=== PATIENT | female | born 1970 | race Caucasian/White ===

== ENCOUNTER → 2018-02-09 14:40 | Outpatient (CLI) | payer OTHER, MEDICAID, SELFPAY ==
--- NOTE | 2018-02-09 14:42 | DI.RAD.S_ITS ---
PROCEDURE: XR SHOULDER RT MIN 2V INDICATIONS: R shoulder pain TECHNIQUE: 3 views of the shoulder were acquired. COMPARISON: [facility], , CHEST 1 VIEW, 04/21/2017, 20:39. FINDINGS: Bones: No fractures or dislocations. No suspicious bony lesions. Visualized ribs appear intact. Severe acromioclavicular degenerative narrowing is present. Soft tissues: No suspicious soft tissue calcifications. IMPRESSION: Severe acromioclavicular degenerative narrowing. Dictated by: Stacy Jackson M.D. on 02/09/2018 at 16:17 Approved by: Stacy Jackson M.D. on 02/09/2018 at 16:18
== END ==
PROVIDERS: Family Provider Family Medicine; PCP Family Medicine; Visit Provider Physician Assistant
DX: M19.011 Primary osteoarthritis, right shoulder (principal)
CPT/HCPCS: 73030

== ENCOUNTER 2018-03-22 19:20 | Emergency (ER) | payer OTHER, MEDICAID, SELFPAY ==
[2018-03-22 19:28] VITALS: BP 155/85; PULSE 80; RESP 18; TEMP 36.7; O2SAT 94; BMI 35.8
--- NOTE | 2018-03-22 19:57 | PC.NURSE ---
rt side lower jaw pain, began this AM, worsening this afternoon with rt jaw/cheek swelling/tenderness, denies fever/nausea/vomiting or other sx
--- NOTE | 2018-03-22 20:04 | ED.DENTAL ---
HPI - Dental/Oral <SHANDRA Pinon - Last Filed: 03/22/18 22:25> General Chief complaint: Dental/Oral Stated complaint: RIGHT CHEEK SWELLING AND PAIN Time Seen by Provider: 03/22/18 20:23 History of Present Illness HPI Narrative: 48-year-old female here for complaint of swelling to her right lower jaw over the past day. She denies any trauma to the area. She does have a history of dental caries. Pain is also in side into her gumline area. No fevers no chills. No drainage from the area. Patient states she does have a dentist and will follow up in the next couple of days. No other concerns or complaints. Related Data Previous Rx's Medication Instructions Recorded Syringes: 1cc Insulin Syringes 0 syr SQ Q DAY #100 03/02/17 with Sawyer Sawyer 5/16 Inch ea #30 05/25/17 hydrochlorothiazide 25 mg PO QDAY #90 tab 10/28/17 lisinopril 20 mg PO QDAY #90 tab 10/28/17 metformin 1,000 mg PO BIDCC #180 tab 10/28/17 omeprazole 40 mg PO QDAY #90 cap 10/28/17 pravastatin 80 mg PO HS #90 tab 10/28/17 meloxicam 15 mg PO QDAY #30 tab 12/16/17 albuterol sulfate [Ventolin HFA] 2 puff INH SEE INSTRUCTIONS PRN #1 12/25/17 inh prazosin 1 mg capsule 1 mg PO HS #90 cap 01/21/18 hydrocodone 5 mg-acetaminophen 325 1 tab PO Q6-8H PRN #10 tab 02/10/18 mg tablet insulin glargine (U-100) 100 37 unit SUBCUT HS #4 each 02/23/18 unit/mL (3 mL) subcutaneous pen clotrimazole 1 % topical cream See Label Instructions TOPICAL BID 03/18/18 #30 gram clindamycin HCl 300 mg PO TID #30 cap 03/22/18 Allergies Allergy/AdvReac Type Severity Reaction Status Date / Time cephalexin [From KEFLEX] Allergy Unknown ITCHY Unverified 03/22/18 18:58 azithromycin [AZITHROMYCIN] AdvReac Severe vomiting Unverified 03/22/18 18:58 Review of Systems <SHANDRA Pinon - Last Filed: 03/22/18 22:25> Constitutional Denies chills, Denies fever(s), Denies lethargy and Denies weakness Eyes Denies change in vision, Denies eye discharge, Denies irritation and Denies loss of vision ENT Ears, Nose, Mouth, and Throat: Reports facial pain and Reports mouth pain Comments: Cardiovascular Denies chest pain, Denies irregular heart rhythm, Denies lightheadedness, Denies palpitations, Denies dyspnea, Denies dyspnea on exertion and Denies orthopnea Respiratory Denies cough, Denies dyspnea, Denies dyspnea on exertion and Denies wheezing Gastrointestinal Gastrointestinal: Denies abdominal pain, Denies change in bowel habits, Denies diarrhea, Denies nausea and Denies vomiting Genitourinary Denies hematuria, Denies flank pain, Denies urinary incontinence and Denies urinary urgency Musculoskeletal Denies back pain, Denies muscle weakness, Denies numbness and Denies tingling Integumentary/Breasts Denies pruritus, Denies erythema, Denies rash and Denies wounds Neurologic Denies confusion, Denies loss of vision, Denies numbness, Denies tingling and Denies weakness Psychiatric Denies anxiety, Denies confusion, Denies depression, Denies homicidal ideation and Denies suicidal ideation Endocrine Denies palpitations Hematologic/Lymphatic Denies easy bruising Allergic/Immunologic Denies wheezing Exam <SHANDRA Pinon - Last Filed: 03/22/18 22:25> Initial Vital Signs Initial Vital Signs: Vital Signs Temperature 98.1 F 03/22/18 19:28 Pulse Rate 80 03/22/18 19:28 Respiratory Rate 18 03/22/18 19:28 Blood Pressure 155/85 H 03/22/18 19:28 Pulse Oximetry 94 03/22/18 19:28 Const General: cooperative and well developed Nutritional Appearance: well nourished Orientation: alert, awake, oriented x3 and not confused HENMT Mouth: other (Tenderness to the right lower gum line and along the mandible externally. Area of swelling and fluctuance felt approximately 2 cm to the right mandible area. ) Eyes Eyelids: eyelids normal Conjunctivae: conjunctivae normal Pupils: PERRL EOM: EOM intact bilaterally Resp Effort & Inspection: normal respiratory effort, able to speak in complete sentences, no respiratory distress and no use of accessory muscles Auscultation: clear to auscultation bilaterally, no rales, no rhonchi and no wheezes Cardio Rate: regular rate Rhythm: regular rhythm Heart Sounds: no click, no gallops, no murmurs and no rubs Skin General: no rashes or lesions noted, No jaundice and No petechiae <Marcos Rowell DO - Last Filed: 03/22/18 23:45> Initial Vital Signs Initial Vital Signs: Vital Signs Temperature 98.1 F 03/22/18 19:28 Pulse Rate 80 03/22/18 19:28 Respiratory Rate 18 03/22/18 19:28 Blood Pressure 155/85 H 03/22/18 19:28 Pulse Oximetry 94 03/22/18 19:28 Course <SHANDRA Pinon - Last Filed: 03/22/18 22:25> Orders Ordered: Discontinued Medications Hydrocodone Bitart/Acetaminophen (Vicodin Prepack) 1 bottle MISC SEEINSTR ONE Stop: 03/22/18 20:41 Last Admin: 03/22/18 21:02 Dose: 1 bottle Clindamycin HCl (Cleocin) 300 mg PO NOW ONE Stop: 03/22/18 20:36 Last Admin: 03/22/18 21:02 Dose: 300 mg Vital Signs - 8 hr 03/22/18 19:28 03/22/18 21:04 03/22/18 21:05 Temperature 98.1 F Pulse Rate 80 71 68 Respiratory Rate 18 16 97 H Blood Pressure 155/85 H 165/79 H Blood Pressure [Left Arm] 165/79 H Pulse Oximetry 94 96 <Marcos Rowell DO - Last Filed: 03/22/18 23:45> Orders Ordered: Discontinued Medications Hydrocodone Bitart/Acetaminophen (Vicodin Prepack) 1 bottle MISC SEEINSTR ONE Stop: 03/22/18 20:41 Last Admin: 03/22/18 21:02 Dose: 1 bottle Clindamycin HCl (Cleocin) 300 mg PO NOW ONE Stop: 03/22/18 20:36 Last Admin: 03/22/18 21:02 Dose: 300 mg Vital Signs - 8 hr 03/22/18 19:28 03/22/18 21:04 03/22/18 21:05 Temperature 98.1 F Pulse Rate 80 71 68 Respiratory Rate 18 16 97 H Blood Pressure 155/85 H 165/79 H Blood Pressure [Left Arm] 165/79 H Pulse Oximetry 94 96 MDM - Dental/Oral <Pablito AngeloSHANDRA - Last Filed: 03/22/18 22:25> [facility] Narrative Medical decision making narrative: With dental caries to that area signs and symptoms presents as starting dental abscess. Wanted to incise and drain area of fluctuance patient refused and states full rather follow up with dentist in the next couple of days. She is covered with clindamycin. [id number] ibuprofen for discomfort. Small amount of [place] is given a Dosepak for breakthrough pain. For any worsening symptoms return to emergency room see dentist in the next day or 2 for further evaluation. Discharge Plan Departure Patient Disposition: Home, Self-Care Clinical Impression: Dental abscess Discharge Date/Time: 03/22/18 21:07 Interventions: ED Discharge Assessment Last Done: 03/22/18 21:05 Instructions: Tooth Abscess Activity Restrictions/Additional Instructions: Signs and symptoms presents as a dental abscess to the right lower jaw area. You have been placed on an antibiotic called clindamycin use as directed. Follow up with her dentist here in the next couple of days for re-evaluation. For any worsening symptoms return to the emergency room. Use [id number] Tylenol Motrin as needed for any discomfort. Small amount of [place] is been right for breakthrough pain use as directed no driving while on the [place]. Prescriptions: New clindamycin HCl 300 mg capsule 300 mg PO TID Qty: 30 RF: 0 No Action Syringes: 1cc Insulin Syringes with Sawyer SQ Q DAY Qty: 100 RF: 0 Sawyer 5/16 Inch Qty: 30 RF: 11 lisinopril 20 MG tablet 20 mg PO QDAY Qty: 90 RF: 3 omeprazole 40 MG capsule,delayed release(DR/EC) 40 mg PO QDAY Qty: 90 RF: 3 pravastatin 80 MG tablet 80 mg PO HS Qty: 90 RF: 3 metformin 1,000 MG tablet 1,000 mg PO BIDCC Qty: 180 RF: 3 hydrochlorothiazide 25 MG tablet 25 mg PO QDAY Qty: 90 RF: 3 meloxicam 15 MG tablet 15 mg PO QDAY Qty: 30 RF: 0 albuterol sulfate [Ventolin HFA] 90 MCG/PUFF HFA aerosol inhaler 2 puff INH SEE INSTRUCTIONS PRNQty: 1 RF: 2 prazosin 1 mg capsule 1 mg PO HS Qty: 90 RF: 3 insulin glargine [Basaglar KwikPen U-100 Insulin] 100 unit/mL (3 mL) insulin pen 37 unit SUBCUT HS Qty: 4 RF: 0 clotrimazole 1 % cream See Label Instructions Topical BID Qty: 30 RF: 0 hydrocodone-acetaminophen 5-325 mg tablet 1 tab PO Q6-8H PRN (Reason: pain) Qty: 10 RF: 0 Referrals: Harmony Trujillo DO [Primary Care Provider] - <Marcos Rowell DO - Last Filed: 03/22/18 23:45> Cosign ED Attending Deedee Attestation: I was immediately available in the department for consultation. Documentation has been reviewed. I agree with assessment and plan.
[2018-03-22] MEDS: CLINDAMYCIN 150 MG CAPSULE 300 MG PO (21:02)
[2018-03-22] MEDS: HYDROCODONE/ACET 5/325 PREPACK 1 BOTTLE MISC (21:02)
[2018-03-22 21:04] VITALS: BP 165/79; PULSE 71; RESP 16; O2SAT 96
[2018-03-22 21:05] VITALS: BP 165/79; PULSE 68; RESP 97
== END 2018-03-22 21:07 | disposition home or self-care (01) ==
PROVIDERS: Emergency Provider Nurse Practitioner Family; Family Provider Family Medicine; PCP Family Medicine
DX: K04.7 Periapical abscess without sinus (principal)
CPT/HCPCS: 99282; 99283

== ENCOUNTER → 2018-08-31 09:58 | Outpatient (CLI) | payer OTHER, SELFPAY ==
[2018-08-31 10:40] LABS: Add Manual Diff / Slide Review NO; Basophils Percent Auto 0.5 % (0-2); Eosinophils Percent Auto 3.5 % (2-4); Hematocrit 38.2 % (36-46); Hemoglobin 13.2 g/dL (12.0-16.0); Lymphocytes Percent Auto 33.5 % (25-40); Mean Corpuscular HGB Conc 34.6 % (30-36); Mean Corpuscular Volume 89.5 fL (80-100); Monocytes Percent Auto 7.2 % (3-14); Neutrophils Absolute Auto 4000 /uL (1500-7000); Neutrophils Percent Auto 55.3 % (50-75); Platelet Count 181 X10^3/uL (150-400); Red Blood Cell Count 4.27 X10^6/uL (4.0-5.2); Red Cell Distribution Width 14.2 % (11.6-14.8); White Blood Cell Count 7.3 X10^3/uL (4.5-11.0)
[2018-08-31 11:48] LABS: Alanine Aminotransferase 29 IU/L (9-52); Albumin 3.9 g/dL (3.5-5.0); Albumin Globulin Ratio 1.1 (1.0-2.8); Alkaline Phosphatase 131 U/L (38-126); Aspartate Aminotransferase 31 IU/L (14-36); Bilirubin Total 0.9 mg/dL (0.2-1.3); Blood Urea Nitrogen 9 mg/dL (7-17); Calcium 9.2 mg/dL (8.4-10.2); Carbon Dioxide 25 mmol/L (22-32); Chloride 106 mmol/L (98-107); Cholesterol 265 mg/dL (140-199); Estimated Glomerular Filt Rate > 60.0 mL/min (>60); Globulin 3.7 g/dL (1.7-4.1); Glucose 217 mg/dL (70-100); HDL Cholesterol 24 mg/dL (40-60); Potassium 3.7 mmol/L (3.4-5.1); Sodium 142 mmol/L (137-145); Total Protein 7.6 g/dL (6.3-8.2)
[2018-08-31 11:55] LABS: HEMOLYSIS 28 (0-50)
[2018-08-31 12:01] LABS: Triglycerides 741 mg/dL (35-150)
[2018-08-31 13:45] LABS: Hemoglobin A1C% w Est Avg Glu 10.7 % (4.0-6.0)
[2018-08-31 14:08] LABS: TSH w/ Reflex to FT4 1.68 uIU/mL (0.47-4.68)
== END ==
PROVIDERS: PCP Family Medicine; Visit Provider Family Medicine
DX: E11.9 Type 2 diabetes mellitus without complications (principal); I10 Essential (primary) hypertension
CPT/HCPCS: 36415; 80053; 80061; 83036; 84443; 85025

== ENCOUNTER → 2018-09-01 14:26 | Outpatient (CLI) | payer OTHER, SELFPAY ==
[2018-09-01 15:02] LABS: LDL Cholesterol Direct 96 mg/dL (<100)
== END ==
PROVIDERS: Family Provider Family Medicine; PCP Family Medicine; Visit Provider Family Medicine
DX: E11.9 Type 2 diabetes mellitus without complications (principal); I10 Essential (primary) hypertension
CPT/HCPCS: 83721

== ENCOUNTER 2018-09-21 12:37 | Emergency (ER) | payer OTHER, SELFPAY ==
[2018-09-21 13:09] VITALS: BP 153/90; PULSE 75; RESP 14; TEMP 37.3; O2SAT 98
--- NOTE | 2018-09-21 15:17 | ED.ABDPAIN ---
HPI - Abdominal Pain <Lana Carrero PA-C - Last Filed: 09/21/18 22:04> General Chief Complaint: Abdominal Pain Stated Complaint: severe rt sided pain Time Seen by Provider: 09/21/18 15:17 Source: patient Mode of arrival: ambulatory Limitations: no limitations History of Present Illness HPI narrative: This 48-year-old female comes in due to 4 day history of right flank pain. This is localized. It is better with lying on her side, no exacerbating features aside from perhaps positional at times. She states that pain has been severe the whole time, maybe somewhat worse today, came in at the insistence of her daughter. She states that she has been able to tolerate fluids, but has not eat any regular meals because of nausea and vomiting when she tries to eat. She states she has also had diarrhea this whole time, quite frequently, thinks maybe 15 episodes today though she has not had any episodes in the several hours that she has been here she states. She denies any pain in the abdomen. She denies any hematuria, dysuria, new frequency or urgency. She denies any chest pain or dyspnea. She states that she had pain like this somewhat with her previous kidney infection. She does not have any history of kidney stones, or pancreas issues, status post cholecystectomy Related Data Home Medications Medication Instructions Recorded Confirmed Vilas 5/16 Inch 1 ea MISCELLANEOUS DIRECTED 09/21/18 09/21/18 Syringes: 1cc Insulin Syringes 1 syr MISCELLANEOUS DIRECTED 09/21/18 09/21/18 with Vilas hydrochlorothiazide 25 mg PO DAILY 09/21/18 09/21/18 insulin glargine [Basaglar Susanna 37 unit SUBCUT BEDTIME 09/21/18 09/21/18 U-100 Insulin] lisinopril 20 mg PO DAILY 09/21/18 09/21/18 omeprazole 40 mg PO DAILY 09/21/18 09/21/18 pravastatin 80 mg PO BEDTIME 09/21/18 09/21/18 prazosin 1 mg PO BEDTIME 09/21/18 09/21/18 sertraline 25 mg PO BEDTIME 09/21/18 09/21/18 Previous Rx's Medication Instructions Recorded albuterol sulfate [Ventolin HFA] 2 puff INH SEE INSTRUCTIONS PRN #1 08/28/18 inh metformin 1,000 mg tablet 1,000 mg PO BIDCC #180 tab 07/13/18 clotrimazole 1 % topical cream See Label Instructions TOPICAL BID 08/12/18 #30 gram ciprofloxacin HCl 500 mg PO Q12H #14 tab 09/21/18 ondansetron 4 mg PO Q8H PRN 3 Days #10 tab 09/21/18 Allergies Allergy/AdvReac Type Severity Reaction Status Date / Time cephalexin [From KEFLEX] Allergy Unknown ITCHY Verified 09/17/18 14:20 azithromycin [AZITHROMYCIN] AdvReac Severe vomiting Verified 09/17/18 14:20 Review of Systems <MARY Fisher Last Filed: 09/21/18 22:04> Review of Systems All systems reviewed & are unremarkable except as noted in HPI and below Exam <MARY Fisher Last Filed: 09/21/18 22:04> Narrative Exam Narrative: GENERAL APPEARANCE: Patient resting, sleeping, in NAD HEENT: PERRL, EOMI, no scleral icterus, normal oropharynx NECK: Supple LUNGS: Clear to auscultation bilaterally. HEART: Rate and rhythm regular, normal S1 and S2, no S3 or S4. ABDOMEN: Soft, nontender, nondistended, bowel sounds present x 4 quadrants, no masses palpable, no hepatosplenomegaly. Localized right CVAT EXTREMITIES: No edema, no calf tenderness DERMATOLOGIC: No jaundice or exanthem NEUROLOGIC: Alert and oriented with normal speech and coordination Initial Vital Signs Initial Vital Signs: Vital Signs Temperature 99.2 F 09/21/18 13:09 Pulse Rate 75 09/21/18 13:09 Respiratory Rate 14 09/21/18 13:09 Blood Pressure 153/90 H 09/21/18 13:09 Pulse Oximetry 98 09/21/18 13:09 <Deepali Dobbins DO - Last Filed: 09/22/18 08:20> Initial Vital Signs Initial Vital Signs: Vital Signs Temperature 99.2 F 09/21/18 13:09 Pulse Rate 75 09/21/18 13:09 Respiratory Rate 14 09/21/18 13:09 Blood Pressure 153/90 H 09/21/18 13:09 Pulse Oximetry 98 09/21/18 13:09 Course <MARY Fisher Last Filed: 09/21/18 22:04> Additional Information: Patient is feeling significantly improved prior to discharge. Pain is better. She has not had any recurrent vomiting or diarrhea. She is tolerating juice and crackers. She feels like symptoms are consistent with previous pyelonephritis. She had tolerated Cipro well in the past, so was started on this and no problem taking it orally while here. Stressed the importance of follow-up with PCP in 2-3 days to assess progress and review cultures as well as return here if any acutely worsening symptoms in the interim, and she is agreeable Orders Ordered: Discontinued Medications Ciprofloxacin (Cipro) 500 mg PO NOW ONE Stop: 09/21/18 17:00 Last Admin: 09/21/18 17:13 Dose: 500 mg Sodium Chloride (Normal Saline 0.9%) 1,000 mls @ 1,000 mls/hr IV BOLUS ONE Stop: 09/21/18 16:32 Last Infusion: 09/21/18 17:04 Dose: 0 mls/hr Admin: 09/21/18 15:57 Dose: 1,000 mls/hr Ketorolac Tromethamine (Toradol) 30 mg IV NOW ONE Stop: 09/21/18 15:34 Last Admin: 09/21/18 15:56 Dose: 30 mg Ondansetron HCl (Zofran) 4 mg IV NOW ONE Stop: 09/21/18 15:34 Last Admin: 09/21/18 15:56 Dose: 4 mg Vital Signs - 8 hr 09/21/18 15:50 09/21/18 17:15 Pulse Rate 64 75 Respiratory Rate 17 17 Blood Pressure [Right Arm] 150/69 H 139/76 Pulse Oximetry 95 95 <Deepali Dobbins, - Last Filed: 09/22/18 08:20> Orders Ordered: Discontinued Medications Ciprofloxacin (Cipro) 500 mg PO NOW ONE Stop: 09/21/18 17:00 Last Admin: 09/21/18 17:13 Dose: 500 mg Sodium Chloride (Normal Saline 0.9%) 1,000 mls @ 1,000 mls/hr IV BOLUS ONE Stop: 09/21/18 16:32 Last Infusion: 09/21/18 17:04 Dose: 0 mls/hr Admin: 09/21/18 15:57 Dose: 1,000 mls/hr Ketorolac Tromethamine (Toradol) 30 mg IV NOW ONE Stop: 09/21/18 15:34 Last Admin: 09/21/18 15:56 Dose: 30 mg Ondansetron HCl (Zofran) 4 mg IV NOW ONE Stop: 09/21/18 15:34 Last Admin: 09/21/18 15:56 Dose: 4 mg Vital Signs - 8 hr 09/21/18 15:50 09/21/18 17:15 Pulse Rate 64 75 Respiratory Rate 17 17 Blood Pressure [Right Arm] 150/69 H 139/76 Pulse Oximetry 95 95 MDM - Abdominal Pain <Lana Carrero PA-C - Last Filed: 09/21/18 22:04> Lab Data Result diagrams: 09/21/18 15:48 09/21/18 15:48 Lab Results 09/21/18 09/21/18 09/21/18 Range/Units 15:48 15:48 16:25 WBC 8.0 (4.5-11.0) X10^3/uL RBC 4.53 (4.0-5.2) X10^6/uL Hgb 14.0 (12.0-16.0) g/dL Hct 40.1 (36-46) % MCV 88.4 (80-100) fL MCH 31.0 (26-34) PG MCHC 35.0 (30-36) % RDW 14.1 (11.6-14.8) % Plt Count 213 (150-400) X10^3/uL Neut % (Auto) 56.9 (50-75) % Lymph % (Auto) 33.7 (25-40) % [place] % (Auto) 6.2 (3-14) % Eos % (Auto) 2.3 (2-4) % Baso % (Auto) 0.9 (0-2) % Neut # (Auto) 4600 (9654-1518) /uL Sodium 142 (137-145) mmol/L Potassium 3.6 (3.4-5.1) mmol/L Chloride 105 (98-107) mmol/L Carbon Dioxide 26 (22-32) mmol/L BUN 13 (7-17) mg/dL Creatinine 0.80 (0.52-1.04) mg/dL Estimated GFR > 60.0 (>60) mL/min BUN/Creatinine Ratio 16.3 (6-22) Glucose 182 H (70-100) mg/dL Calcium 9.7 (8.4-10.2) mg/dL Total Bilirubin 1.1 (0.2-1.3) mg/dL AST 32 (14-36) IU/L ALT 21 (9-52) IU/L Alkaline Phosphatase 119 (38-126) U/L Total Protein 8.2 (6.3-8.2) g/dL Albumin 4.1 (3.5-5.0) g/dL Globulin 4.1 (1.7-4.1) g/dL Albumin/Globulin Ratio 1.0 (1.0-2.8) Lipase 99 (23-300) U/L Urine RBC 0-1/hpf (0-5/HPF) Urine WBC 30-100/hpf H (0-5/HPF) Ur Squamous Epith Cells 0-1 /hpf Amorphous Sediment 1+ Urine Bacteria Moderate (10-30) H (None) Urine Mucus 1+ H (Negative) Ur Culture Indicated? Specimen cultured Micro UA Comment Not Reportable Point of care testing: Point of Care Testing Test Results Negative Urine Dip Bedside Urine Glucose Negative Bedside Urine Bilirubin - Negative Bedside Urine Ketone - Negative Urine Specific [place] 1.030 Bedside Urine Occult Blood +/- Bedside Urine Protein +/- 15 Bedside Urine Urobilinogen +/- 1mg Bedside Urine Nitrite + Positive Bedside Urine Leukocytes ++ 125 Esterase Imaging Data KUB: Radiologist's impression: [place] [address] CT Scan Report Signed Patient: Nilam Mcclain MR#: [id number] : 1970 Acct:[id number] Age/Sex: 48 / F Date of Service: 09/21/18 Loc: ED Accession Number: [id number] Procedure: CT kidney ureter bladder (KUB) Ordering Provider: Lana Carrero P.A-C PROCEDURE: CT KIDNEY URETER BLADDER (KUB) INDICATIONS: Right flank pain, vomiting TECHNIQUE: Noncontrast 5 mm thick sections acquired from the diaphragms to the symphysis. 5 mm thick coronal and sagittal reformats were then performed. For radiation dose reduction, the following was used: automated exposure control, adjustment of mA and/or kV according to patient size. COMPARISON: [facility], CT, ABDOMEN/PELVIS WITH CONTRAST, 12/05/2016, 23:33. [facility], CT, ABDOMEN/PELVIS WITH CONTRAST, 06/13/2013, 8:51. [facility], CT, KIDNEY/ URETER/BLADDER, 02/24/2012, 22:10. FINDINGS: Image quality: Diagnostic. Lung bases: Lung bases are clear. Heart size is normal. There may be right coronary artery disease. Urinary system: The kidneys are normal in size. Small calculi within the bilateral renal hilar regions probably represent vascular calcifications. No convincing renal calculi are evident. There is no hydronephrosis or hydroureter. No definite ureteral calculi are present. Small calculi near the right side of the urinary bladder appear to be stable since the previous examination and are felt to represent phleboliths within the ovarian vein on the right. No definite cystic or solid renal abnormality is appreciated. The urinary bladder is decompressed and not well evaluated. No bladder calculi are evident. Multiple phleboliths are seen within the pelvis, which are unchanged since previous exams. Other solid organs: The liver is normal in size. The patient has had a prior cholecystectomy. There is a peripherally calcified lesion identified involving the upper portion of the spleen, which is unchanged since 2012, suggesting a benign process. Peritoneum and bowel: There is a small hiatal hernia. Otherwise, the stomach and duodenum are unremarkable. The small bowel loops are nondilated. The appendix is well-visualized and normal in size. There is a small to moderate amount of residual stool identified within the proximal colon. There is no free fluid, loculated fluid collection or free air. There may be a small fat-containing periumbilical hernia. Nodes and vessels: No retroperitoneal or mesenteric adenopathy by size criteria. Aorta and inferior vena cava are normal in caliber. Extensive aortic and iliac artery atherosclerosis is present. Other pelvic soft tissues: No free pelvic fluid. No inguinal hernias or adenopathy. Bones: No suspicious bony lesions. No vertebral body compression fractures. Age-appropriate degenerative changes of the spine and shoulders are present. There also are degenerative changes of the bilateral sacroiliac joints with corresponding bony fusion. IMPRESSION: 1. No hydronephrosis or obstructing renal or ureteral calculi. 2. Normal appendix. No bowel obstruction. 3. Extensive atherosclerosis of the arteries of the abdomen and pelvis. 4. Small hiatal hernia. 5. Small fat-containing periumbilical hernia. 6. Moderate degenerative changes of the imaged spine and pelvic joints. Dictated by: Ashwin Knutson M.D. on 09/21/2018 at 15:08 Approved by: Ashwin Knutson M.D. on 09/21/2018 at 15:14 <Deepalianamika Dobbins, DO - Last Filed: 09/22/18 08:20> Lab Data Lab Results 09/21/18 09/21/18 09/21/18 Range/Units 15:48 15:48 16:25 WBC 8.0 (4.5-11.0) X10^3/uL RBC 4.53 (4.0-5.2) X10^6/uL Hgb 14.0 (12.0-16.0) g/dL Hct 40.1 (36-46) % MCV 88.4 (80-100) fL MCH 31.0 (26-34) PG MCHC 35.0 (30-36) % RDW 14.1 (11.6-14.8) % Plt Count 213 (150-400) X10^3/uL Neut % (Auto) 56.9 (50-75) % Lymph % (Auto) 33.7 (25-40) % [place] % (Auto) 6.2 (3-14) % Eos % (Auto) 2.3 (2-4) % Baso % (Auto) 0.9 (0-2) % Neut # (Auto) 4600 (8496-1124) /uL Sodium 142 (137-145) mmol/L Potassium 3.6 (3.4-5.1) mmol/L Chloride 105 (98-107) mmol/L Carbon Dioxide 26 (22-32) mmol/L BUN 13 (7-17) mg/dL Creatinine 0.80 (0.52-1.04) mg/dL Estimated GFR > 60.0 (>60) mL/min BUN/Creatinine Ratio 16.3 (6-22) Glucose 182 H (70-100) mg/dL Calcium 9.7 (8.4-10.2) mg/dL Total Bilirubin 1.1 (0.2-1.3) mg/dL AST 32 (14-36) IU/L ALT 21 (9-52) IU/L Alkaline Phosphatase 119 (38-126) U/L Total Protein 8.2 (6.3-8.2) g/dL Albumin 4.1 (3.5-5.0) g/dL Globulin 4.1 (1.7-4.1) g/dL Albumin/Globulin Ratio 1.0 (1.0-2.8) Lipase 99 (23-300) U/L Urine RBC 0-1/hpf (0-5/HPF) Urine WBC 30-100/hpf H (0-5/HPF) Ur Squamous Epith Cells 0-1 /hpf Amorphous Sediment 1+ Urine Bacteria Moderate (10-30) H (None) Urine Mucus 1+ H (Negative) Ur Culture Indicated? Specimen cultured Micro UA Comment Not Reportable Point of care testing: Point of Care Testing Test Results Negative Urine Dip Bedside Urine Glucose Negative Bedside Urine Bilirubin - Negative Bedside Urine Ketone - Negative Urine Specific [place] 1.030 Bedside Urine Occult Blood +/- Bedside Urine Protein +/- 15 Bedside Urine Urobilinogen +/- 1mg Bedside Urine Nitrite + Positive Bedside Urine Leukocytes ++ 125 Esterase Discharge Plan Departure Patient Disposition: Home Clinical Impression: Pyelonephritis Discharge Date/Time: 09/21/18 17:46 Interventions: ED Discharge Assessment Last Done: 09/21/18 17:47 Instructions: DI for Kidney Infection Activity Restrictions/Additional Instructions: Please return as we talked about if you have any acutely worsening symptoms again while the urine cultures are brewing. You can take your 2nd dose of the antibiotic late tonight if you are up, otherwise early in the morning. You can take the antinausea medicine if you continue to needed. Please continue plenty of clear fluids, and you can have broth, crackers, and stick with bland foods until your stomach is feeling better in the next day or 2. Follow up with your PCP in 2-3 days to assess your progress and review the urine cultures Prescriptions: New ciprofloxacin HCl 500 mg tablet 500 mg PO Q12H Qty: 14 RF: 0 ondansetron 4 mg tablet,disintegrating 4 mg PO Q8H PRN (Reason: nausea and vomiting) 3 Days Qty: 10 RF: 0 No Action albuterol sulfate [Ventolin HFA] 90 mcg/actuation HFA aerosol inhaler 2 puff INH SEE INSTRUCTIONS PRNQty: 1 RF: 2 clotrimazole 1 % cream See Label Instructions Topical BID Qty: 30 RF: 1 metformin 1,000 mg tablet 1,000 mg PO BIDCC Qty: 180 RF: 0 insulin glargine [Basaglar KwikPen U-100 Insulin] 100 unit/mL (3 mL) insulin pen 37 unit SUBCUT BEDTIME RF: 0 prazosin 1 mg capsule 1 mg PO BEDTIME RF: 0 lisinopril 20 MG tablet 20 mg PO DAILY RF: 0 omeprazole 40 mg capsule,delayed release(DR/EC) 40 mg PO DAILY RF: 0 hydrochlorothiazide 25 mg tablet 25 mg PO DAILY RF: 0 pravastatin 80 MG tablet 80 mg PO BEDTIME RF: 0 sertraline 25 mg tablet 25 mg PO BEDTIME RF: 0 Vilas 5/16 Inch 1 ea miscellaneous DIRECTED RF: 0 Syringes: 1cc Insulin Syringes with Vilas 1 syr miscellaneous DIRECTED RF: 0 Referrals: Harmony Trujillo DO [Primary Care Provider] - <Deepali Dobbins DO - Last Filed: 09/22/18 08:20> Cosign ED Attending Cosignature Attestation: I was immediately available in the department for consultation. This documentation has been reviewed and I agree with assessment and plan. Supervised by Deepali Dobbins DO
--- NOTE | 2018-09-21 15:33 | DI.CT.S_ITS ---
PROCEDURE: CT KIDNEY URETER BLADDER (KUB) INDICATIONS: Right flank pain, vomiting TECHNIQUE: Noncontrast 5 mm thick sections acquired from the diaphragms to the symphysis. 5 mm thick coronal and sagittal reformats were then performed. For radiation dose reduction, the following was used: automated exposure control, adjustment of mA and/or kV according to patient size. COMPARISON: [facility], CT, ABDOMEN/PELVIS WITH CONTRAST, 12/05/2016, 23:33. [facility], CT, ABDOMEN/PELVIS WITH CONTRAST, 06/13/2013, 8:51. [facility], CT, KIDNEY/ URETER/BLADDER, 02/24/2012, 22:10. FINDINGS: Image quality: Diagnostic. Lung bases: Lung bases are clear. Heart size is normal. There may be right coronary artery disease. Urinary system: The kidneys are normal in size. Small calculi within the bilateral renal hilar regions probably represent vascular calcifications. No convincing renal calculi are evident. There is no hydronephrosis or hydroureter. No definite ureteral calculi are present. Small calculi near the right side of the urinary bladder appear to be stable since the previous examination and are felt to represent phleboliths within the ovarian vein on the right. No definite cystic or solid renal abnormality is appreciated. The urinary bladder is decompressed and not well evaluated. No bladder calculi are evident. Multiple phleboliths are seen within the pelvis, which are unchanged since previous exams. Other solid organs: The liver is normal in size. The patient has had a prior cholecystectomy. There is a peripherally calcified lesion identified involving the upper portion of the spleen, which is unchanged since 2012, suggesting a benign process. Peritoneum and bowel: There is a small hiatal hernia. Otherwise, the stomach and duodenum are unremarkable. The small bowel loops are nondilated. The appendix is well-visualized and normal in size. There is a small to moderate amount of residual stool identified within the proximal colon. There is no free fluid, loculated fluid collection or free air. There may be a small fat-containing periumbilical hernia. Nodes and vessels: No retroperitoneal or mesenteric adenopathy by size criteria. Aorta and inferior vena cava are normal in caliber. Extensive aortic and iliac artery atherosclerosis is present. Other pelvic soft tissues: No free pelvic fluid. No inguinal hernias or adenopathy. Bones: No suspicious bony lesions. No vertebral body compression fractures. Age-appropriate degenerative changes of the spine and shoulders are present. There also are degenerative changes of the bilateral sacroiliac joints with corresponding bony fusion. IMPRESSION: 1. No hydronephrosis or obstructing renal or ureteral calculi. 2. Normal appendix. No bowel obstruction. 3. Extensive atherosclerosis of the arteries of the abdomen and pelvis. 4. Small hiatal hernia. 5. Small fat-containing periumbilical hernia. 6. Moderate degenerative changes of the imaged spine and pelvic joints. Dictated by: Ashwin Knutson M.D. on 09/21/2018 at 15:08 Approved by: Ashwin Knutson M.D. on 09/21/2018 at 15:14
[2018-09-21 15:50] VITALS: BP 150/69; PULSE 64; RESP 17; O2SAT 95
[2018-09-21 15:52] LABS: Add Manual Diff / Slide Review NO; Basophils Percent Auto 0.9 % (0-2); Eosinophils Percent Auto 2.3 % (2-4); Hematocrit 40.1 % (36-46); Lymphocytes Percent Auto 33.7 % (25-40); Mean Corpuscular Volume 88.4 fL (80-100); Monocytes Percent Auto 6.2 % (3-14); Neutrophils Absolute Auto 4600 /uL (1500-7000); Neutrophils Percent Auto 56.9 % (50-75); Platelet Count 213 X10^3/uL (150-400); Red Blood Cell Count 4.53 X10^6/uL (4.0-5.2); Red Cell Distribution Width 14.1 % (11.6-14.8)
[2018-09-21] MEDS: KETOROLAC 60 MG/2 ML VIAL 30 MG IV (15:56)
[2018-09-21] MEDS: ONDANSETRON 4 MG/2 ML INJ IV (15:56)
[2018-09-21] MEDS: SODIUM CHLORIDE 0.9% 1,000 ML 1000 ML IV (15:57)
[2018-09-21 16:05] LABS: Alanine Aminotransferase 21 IU/L (9-52); Albumin 4.1 g/dL (3.5-5.0); Alkaline Phosphatase 119 U/L (38-126); Aspartate Aminotransferase 32 IU/L (14-36); BUN Creatinine Ratio 16.3 (6-22); Bilirubin Total 1.1 mg/dL (0.2-1.3); Blood Urea Nitrogen 13 mg/dL (7-17); Calcium 9.7 mg/dL (8.4-10.2); Carbon Dioxide 26 mmol/L (22-32); Chloride 105 mmol/L (98-107); Estimated Glomerular Filt Rate > 60.0 mL/min (>60); Globulin 4.1 g/dL (1.7-4.1); Glucose 182 mg/dL (70-100); HEMOLYSIS 17 (0-50); Lipase 99 U/L (23-300); Potassium 3.6 mmol/L (3.4-5.1); Sodium 142 mmol/L (137-145); Total Protein 8.2 g/dL (6.3-8.2)
[2018-09-21 16:43] LABS: Amorphous Sediment Urine 1+; Bacteria Urine Moderate (10-30); Culture Indicated Urine Specimen Cultured; Mucus Urine 1+ (Negative); RBC Urine 0-1/HPF (0-5/HPF); Squamous Epithelial Cell Urine 0-1 /HPF; WBC Urine 30-100/HPF (0-5/HPF)
[2018-09-21] MEDS: CIPROFLOXACIN 500 MG TABLET PO (17:13)
[2018-09-21 17:15] VITALS: BP 139/76; PULSE 75; RESP 17; O2SAT 95
== END 2018-09-21 17:46 | disposition home or self-care (01) ==
PROVIDERS: Emergency Provider Internal Medicine; PCP Family Medicine
DX: N12 Tubulo-interstitial nephritis, not specified as acute or chronic (principal)
CPT/HCPCS: 36591; 74176; 80053; 81003; 81015; 81025; 83690; 85025; 87077; 87086; 87186; 96361; 96374; 96375; 99283; 99284; J1885; J2405

== ENCOUNTER → 2019-05-10 20:03 | Outpatient (CLI) | payer OTHER, SELFPAY | PROVIDERS: PCP Family Medicine; Visit Provider Physician Assistant | DX: N30.01 Acute cystitis with hematuria (principal) | CPT/HCPCS: 87077; 87086; 87186 ==

== ENCOUNTER → 2019-09-02 09:53 | Outpatient (CLI) | payer OTHER, SELFPAY ==
[2019-09-02 11:17] LABS: Hemoglobin A1C% w Est Avg Glu 11.4 % (4.0-6.0)
[2019-09-02 11:34] LABS: Blood Urea Nitrogen 10 mg/dL (7-17); Calcium 9.4 mg/dL (8.4-10.2); Carbon Dioxide 23 mmol/L (22-32); Chloride 105 mmol/L (98-107); Estimated Glomerular Filt Rate > 60.0 mL/min (>60); Glucose 383 mg/dL (70-100); HEMOLYSIS < 15 (0-50); Sodium 137 mmol/L (137-145)
[2019-09-02 11:46] LABS: Potassium 3.6 mmol/L (3.4-5.1)
== END ==
LOC: LAB 09:55
PROVIDERS: PCP Family Medicine; Visit Provider Family Medicine
DX: E11.9 Type 2 diabetes mellitus without complications (principal); I10 Essential (primary) hypertension
CPT/HCPCS: 36415; 80048; 83036

== ENCOUNTER 2019-12-20 18:46 | Observation (INO) | payer OTHER, SELFPAY ==
[2019-12-20] VITALS (10 sets, daily range): BP systolic 84–115; BP diastolic 50–78; PULSE 78–92; RESP 14–22; TEMP 36.6–37.2; O2SAT 97–100
--- NOTE | 2019-12-20 18:56 | ED.GENADULT ---
HPI - General Adult General Chief complaint: Diabetic Problem Stated complaint: sugars are elevated, feels faint Time Seen by Provider: 12/20/19 18:47 Source: patient Mode of arrival: Ambulatory Limitations: no limitations History of Present Illness HPI narrative: The patient is here with vague complaints of not feeling well. She is a smoker, she has intermittent nonproductive cough. She has no associated ENT complaints, no headache and no fever. She has decreased appetite but continues to eat and drink, she has no abdominal pain, nausea vomiting. She is diabetic, most recently taking glargine 30 units subcu daily. She has not had that medication for some time, her insurance company denied that medication and suggested NPH instead. She was recently seen in clinic by her PCM. She is currently taking NPH, but only the a.m. dose. She complains that the NPH causes her glucose to crash, thus avoiding the p.m. dosing she is taking 15 units in the morning. She is now here with the vague complaints of feeling ill, consistent with prior episodes of hyperglycemia. She is having no chest pain with the cough. GI complaints are limited decreased appetite. She has no back pain or dysuria. She has no significant rashes. She also takes metformin for diabetes. She is compliant with all her other medications. She has no known COVID-19 exposure. Related Data Home Medications Medication Instructions Recorded Confirmed Syringes: 1cc Insulin Syringes 1 syr MISCELLANEOUS DIRECTED 09/21/18 12/16/19 with [facility] Previous Rx's Medication Instructions Recorded clotrimazole 1 % topical cream See Rx Instructions TOPICAL BID 08/12/18 #30 gram [facility] 5/16 Inch #1 each 10/19/19 albuterol sulfate 90 mcg/actuation 2 puff INHALATION SEE INSTRUCTIONS 10/19/19 aerosol inhaler PRN #1 inh hydrochlorothiazide 25 mg tablet 25 mg PO DAILY #90 tab 10/19/19 lisinopril 20 mg tablet 20 mg PO DAILY #90 tab 10/19/19 metformin 1,000 mg tablet 1,000 mg PO BIDCC #180 tab 10/19/19 omeprazole 40 mg capsule,delayed 40 mg PO DAILY #90 cap 10/19/19 release pravastatin 80 mg tablet 80 mg PO BEDTIME #90 tab 10/19/19 lancet See Rx Instructions .ROUTE 10/28/19 .COMPLEX #100 each glucometer kit See Rx Instructions .ROUTE 10/28/19 .COMPLEX #1 each glucometer home kit See Rx Instructions .ROUTE 11/01/19 .COMPLEX #1 each insulin glargine 100 unit/mL (3 30 unit SUBCUT DAILY #15 ml 12/16/19 mL) subcutaneous pen test strips See Rx Instructions .ROUTE 12/16/19 .COMPLEX #100 each Allergies Allergy/AdvReac Type Severity Reaction Status Date / Time cephalexin [From KEFLEX] Allergy Unknown ITCHY Verified 12/16/19 09:15 naproxen Allergy Itchy hands Verified 12/16/19 09:15 azithromycin [AZITHROMYCIN] AdvReac Severe vomiting Verified 12/16/19 09:15 Review of Systems Review of Systems ROS Unobtainable: All systems reviewed & are unremarkable except as noted in HPI and below Constitutional Constitutional: Denies chills, Denies fever(s), Denies headache(s), Reports lethargy and Reports weakness Eyes Eyes: Reports blurry vision, Denies diplopia and Denies eye discharge ENT Ears, Nose, Mouth, and Throat: Denies headache(s), Denies hoarseness, Denies nasal congestion and Denies sore throat Cardiovascular Cardiovascular: Denies chest pain, Denies irregular heart rhythm, Denies palpitations and Denies dyspnea Respiratory Respiratory: Denies cough, Denies dyspnea and Denies wheezing Gastrointestinal Gastrointestinal: Denies abdominal pain, Denies change in bowel habits, Denies diarrhea, Denies nausea and Denies vomiting Comments: Decreased appetite Genitourinary Genitourinary: Denies dysuria, Denies flank pain and Denies urinary urgency Musculoskeletal Musculoskeletal: Denies back pain, Denies muscle weakness, Denies numbness and Denies tingling Integumentary/Breasts Skin/Breast: Denies erythema and Denies rash Neurologic Neurologic: Denies confusion, Denies headache(s), Denies numbness, Denies tingling and Reports weakness Psychiatric Psychiatric: Denies confusion and Denies depression Endocrine Endocrine: Denies palpitations Allergic/Immunologic Allergic/Immunologic: Denies wheezing Patient History Medical History (Updated 12/21/19 @ 00:43 by SHANDRA Ibarra) Allergic rhinitis (Acute) Asthma (Acute) Carpal tunnel syndrome of left wrist (Acute) Continuous tobacco abuse (Inactive) COPD (chronic obstructive pulmonary disease) (Chronic) Diabetes mellitus (Chronic) GERD (gastroesophageal reflux disease) (Inactive) Hyperlipidemia (Acute) Hypertension (Inactive 08/20/11) Obesity (06/21/14) Surgical History Status post hysterectomy (~1996) Family History (Updated 12/21/19 @ 00:45 by SHANDRA Ibarra) Father Mesothelioma Mother Dementia Epilepsy Sister Lung disease Other Family history non-contributory Social History household members: spouse Smoking Status: Current every day smoker alcohol intake: current Smoking Status: Current every day smoker alcohol intake frequency: 0-2 drinks per day Exam Initial Vital Signs Initial Vital Signs: Vital Signs Temperature 97.8 F 12/20/19 18:50 Pulse Rate 92 H 12/20/19 18:50 Respiratory Rate 22 12/20/19 18:50 Blood Pressure 106/59 L 12/20/19 18:50 Pulse Oximetry 99 12/20/19 18:50 Const General: cooperative and well developed Nutritional Appearance: well nourished [facility] Head: normocephalic and atraumatic Face and sinus: sinuses nontender, face symmetric and No dry mucous membranes Mouth: moist mucous membranes Throat: posterior oropharynx normal Eyes General: appearance normal, both eyes and all related structures Eyelids: eyelids normal Conjunctivae: conjunctivae normal Sclera: sclerae normal Pupils: PERRL EOM: EOM intact bilaterally Neck Neck: full ROM, No lymphadenopathy and No JVD Resp Effort & Inspection: normal respiratory effort and able to speak in complete sentences Auscultation: clear to auscultation bilaterally, no rales, no rhonchi and no wheezes Cardio Rate: regular rate Rhythm: regular rhythm Heart Sounds: S1 normal, S2 normal, no click, no gallops, no murmurs and no rubs Pulses: normal peripheral pulses GI Inspection: non-distended Palpation: soft, no hepatosplenomegaly, No guarding and No tender Auscultation: normal bowel sounds Back/Spine/Pelvis Back: No CVA tenderness Skin General: no rashes or lesions noted Neuro General: alert, oriented x3, gait normal and no focal motor deficits Speech: speech normal Extrem General: full ROM, no clubbing, cyanosis or edema, no pedal edema and no calf tenderness Psych Appearance: well kempt Mental Status: mental status grossly normal Attitude: cooperative Thought Content: normal Course Course Course Narrative: The patient was normotensive, without tachycardia upon arrival. She had generalized complaints as discussed in HPI, she had no fever. Her blood pressure dropped into 80s, but she did not develop tachycardia. Her WBC count was normal, but her lactic acid level is elevated. She was started on IV fluid boluses. She had mild wheezing on exam, she was given albuterol. Chest x-ray was normal. She is found to have a UTI. Levaquin was utilized to treat the infection. She has significant hyperglycemia, this improved with IV fluid boluses, and IV insulin. She is also acute renal failure, her creatinine improved with IV fluid boluses. In addition to the IV Levaquin she received 3 L of normal saline. Her lactic acid level from 3.2 to1.4 with the IV fluids and medications given. Prior to admission her creatinine improved from 1.7 to 1.4. Her CO2 was still decreased. Otherwise she is clinically stable, her blood pressures normalized prior to admission, she is still likely to benefit from ongoing IV hydration. Her glucose has improved from 425 to 314 prior to discharge, she will benefit from an additional management of her hyperglycemia. The case was discussed with the hospitalist, SHANDRA Salamanca. She is admitted with sepsis, UTI, acute renal failure, dehydration and hyperglycemia. Orders Ordered: ED Orders 12/20/19 18:55 C-Reactive Protein Quant Stat Complete Blood Count AUTO DIFF Stat Comprehensive Metabolic Panel Stat Lactate (Lactic Acid) Stat Lipase Stat Procalcitonin Stat 12/20/19 19:09 XR chest 1V Stat 12/20/19 19:35 ABG [Arterial Blood Gas] Stat 12/20/19 19:57 Arterial Blood Gas Routine 12/20/19 20:18 Blood Culture Stat 12/20/19 20:23 Urine Culture Stat Urine Microscopic Stat 12/20/19 22:04 Basic Metabolic Panel Stat Acetaminophen (Tylenol) 650 mg PO Q6HR PRN PRN Reason: Fever/Mild Pain (1-3) Al Hydrox/Mg Hydrox/Simethicone (Maalox Plus) 30 ml PO Q6HR PRN PRN Reason: Dyspepsia Albuterol (Ventolin Hfa) 2 puff INH RTQ4HR PRN PRN Reason: Shortness Of Breath Albuterol/Ipratropium (Combivent Respimat) 2 puff INH RTBID [facility] Bisacodyl (Dulcolax) 10 mg [place] DAILY PRN PRN Reason: Constipation Calcium Carbonate (Tums) 1,000 mg PO Q4HR PRN PRN Reason: Dyspepsia Dextrose (D50w) 25 gm IV PRN PRN; Protocol PRN Reason: Hypoglycemia Docusate Sodium (Colace) 100 mg PO BID PRN PRN Reason: Constipation Enoxaparin Sodium (Lovenox) 40 mg SUBCUT DAILY [facility] Sodium Chloride (Normal Saline 0.9%) 1,000 mls @ 100 mls/hr IV CONT [facility] Last Admin: 12/21/19 00:29 Dose: 100 mls/hr Documented by: NIC Levofloxacin (Levaquin) 750 mg in 150 mls @ 100 mls/hr IV Q24H [facility] Insulin Aspart (Novolog Flexpen) 0 unit SUBCUT ACHS KIRSTEN; Protocol Insulin Glargine (Lantus Solostar (Pen)) 30 unit SUBCUT BEDTIME [facility] Last Admin: 12/21/19 01:37 Dose: 30 unit Documented by: NIC Cosigned by: DOROTHEA Metoclopramide HCl (Reglan) 10 mg IV Q6HR PRN PRN Reason: Nausea And Vomiting Naloxone HCl (Narcan) 0.2 mg IV Q2MIN PRN PRN Reason: Opiate Reversal Pravastatin Sodium (Pravachol) 80 mg PO BEDTIME [facility] Discontinued Medications Albuterol (Ventolin Hfa) 2 puff INH NOW ONE Stop: 12/20/19 19:10 Last Admin: 12/20/19 19:52 Dose: 2 inhalation Documented by: AUDREY Sodium Chloride (Normal Saline 0.9%) 1,000 mls @ 1,000 mls/hr IV BOLUS ONE Stop: 12/20/19 19:56 Last Infusion: 12/20/19 20:11 Dose: 0 mls/hr Documented by: Admin: 12/20/19 19:08 Dose: 1,000 mls/hr Documented by: AUDREY Sodium Chloride (Normal Saline 0.9%) 1,000 mls @ 1,000 mls/hr IV BOLUS ONE Stop: 12/20/19 20:47 Last Infusion: 12/20/19 22:20 Dose: 0 mls/hr Documented by: Admin: 12/20/19 20:11 Dose: 1,000 mls/hr Documented by: AUDREY Levofloxacin (Levaquin) 500 mg in 100 mls @ 100 mls/hr IV NOW ONE Stop: 12/20/19 21:40 Last Infusion: 12/20/19 22:20 Dose: 0 mls/hr Documented by: Admin: 12/20/19 20:53 Dose: 100 mls/hr Documented by: AUDREY Sodium Chloride (Normal Saline 0.9%) 1,000 mls @ 1,000 mls/hr IV BOLUS ONE Stop: 12/20/19 22:57 Last Admin: 12/20/19 22:23 Dose: 1,000 mls/hr Documented by: NIKI Insulin Glargine (Lantus Solostar (Pen)) 30 unit SUBCUT DAILY KIRST[facility] Insulin Human Regular (Humulin R) 5 unit IV NOW ONE Stop: 12/20/19 19:09 Last Admin: 12/20/19 19:24 Dose: 5 unit Documented by: AUDREY Cosigned by: NO Vital Signs Vital signs: Vital Signs - 8 hr 12/20/19 18:50 12/20/19 19:15 12/20/19 19:29 Temperature 97.8 F Pulse Rate 92 H 80 86 Respiratory Rate 22 18 18 Blood Pressure 106/59 L Blood Pressure [Left Arm] 85/60 L 84/52 L Pulse Oximetry 99 98 98 12/20/19 19:46 12/20/19 20:30 12/20/19 21:01 Temperature Pulse Rate 85 82 84 Respiratory Rate 14 18 18 Blood Pressure Blood Pressure [Left Arm] 89/52 L 87/50 L 94/55 L Pulse Oximetry 98 100 98 12/20/19 22:11 Temperature Pulse Rate 85 Respiratory Rate 18 Blood Pressure Blood Pressure [Left Arm] 92/55 L Pulse Oximetry 98 Medical Decision Making Lab Data Result diagrams: 12/20/19 18:55 12/20/19 22:04 Labs: Lab Results 12/20/19 12/20/19 12/20/19 Range/Units 18:55 18:55 18:55 WBC 9.8 (4.5-11.0) X10^3/uL RBC 4.13 (4.0-5.2) X10^6/uL Hgb 13.4 (12.0-16.0) g/dL Hct 37.2 (36-46) % MCV 89.9 (80-100) fL MCH 32.4 (26-34) PG MCHC 36.1 H (30-36) % RDW 14.5 (11.6-14.8) % Plt Count 231 (150-400) X10^3/uL Neut % (Auto) 55.9 (50-75) % Lymph % (Auto) 34.7 (25-40) % Nash % (Auto) 5.5 (3-14) % Eos % (Auto) 2.9 (2-4) % Baso % (Auto) 1.0 (0-2) % Neut # (Auto) 5600 (4335-0275) /uL Lymph # (Auto) 3500 (4656-3098) /uL Nash # (Auto) 600 (0-900) /uL Eos # (Auto) 300 (0-450) /uL Baso # (Auto) 100 (0-100) /uL ABG pH (7.35-7.45) ABG pCO2 (35-45) mmHg ABG pO2 (80-100) mmHg ABG HCO3 (22-26) mmol/L ABG Total CO2 (21-31) mmol/L ABG O2 Saturation (95-100) % ABG Base Excess (-2-2) mmol/L FiO2 Sodium 132 L (137-145) mmol/L Potassium 4.2 (3.4-5.1) mmol/L Chloride 99 (98-107) mmol/L Carbon Dioxide 17 L (22-32) mmol/L BUN 33 H (7-17) mg/dL Creatinine 1.72 H (0.52-1.04) mg/dL Estimated GFR 31.4 L (>60) mL/min BUN/Creatinine Ratio 19.2 (6-22) Glucose 425 H (70-100) mg/dL Lactate (0.7-2.1) mmol/L Calcium 9.5 (8.4-10.2) mg/dL Magnesium (1.6-2.3) mg/dL Total Bilirubin 1.3 (0.2-1.3) mg/dL AST 40 H (14-36) IU/L ALT 23 (<35) IU/L Alkaline Phosphatase 186 H (38-126) U/L C-Reactive Protein (<1.0) mg/dL Total Protein 9.0 H (6.3-8.2) g/dL Albumin 4.2 (3.5-5.0) g/dL Globulin 4.8 H (1.7-4.1) g/dL Albumin/Globulin Ratio 0.9 L (1.0-2.8) Lipase 205 (23-300) U/L Procalcitonin 0.15 (<0.5) ng/mL Urine RBC (0-5/HPF) Urine WBC (0-5/HPF) Ur Squamous Epith Cells (0-5/HPF) Ur Transition Epith Cell (0-5/HPF) Urine Bacteria (None) Ur Culture Indicated? 12/20/19 12/20/19 12/20/19 Range/Units 18:55 18:55 19:57 WBC (4.5-11.0) X10^3/uL RBC (4.0-5.2) X10^6/uL Hgb (12.0-16.0) g/dL Hct (36-46) % MCV (80-100) fL MCH (26-34) PG MCHC (30-36) % RDW (11.6-14.8) % Plt Count (150-400) X10^3/uL Neut % (Auto) (50-75) % Lymph % (Auto) (25-40) % Nash % (Auto) (3-14) % Eos % (Auto) (2-4) % Baso % (Auto) (0-2) % Neut # (Auto) (3670-3046) /uL Lymph # (Auto) (4638-9362) /uL Nash # (Auto) (0-900) /uL Eos # (Auto) (0-450) /uL Baso # (Auto) (0-100) /uL ABG pH 7.37 (7.35-7.45) ABG pCO2 32.7 L (35-45) mmHg ABG pO2 83 (80-100) mmHg ABG HCO3 19 L (22-26) mmol/L ABG Total CO2 20 L (21-31) mmol/L ABG O2 Saturation 96 (95-100) % ABG Base Excess -6.0 L (-2-2) mmol/L FiO2 0.21 Sodium (137-145) mmol/L Potassium (3.4-5.1) mmol/L Chloride (98-107) mmol/L Carbon Dioxide (22-32) mmol/L BUN (7-17) mg/dL Creatinine (0.52-1.04) mg/dL Estimated GFR (>60) mL/min BUN/Creatinine Ratio (6-22) Glucose (70-100) mg/dL Lactate 3.2 H (0.7-2.1) mmol/L Calcium (8.4-10.2) mg/dL Magnesium (1.6-2.3) mg/dL Total Bilirubin (0.2-1.3) mg/dL AST (14-36) IU/L ALT (<35) IU/L Alkaline Phosphatase (38-126) U/L C-Reactive Protein < 0.5 (<1.0) mg/dL Total Protein (6.3-8.2) g/dL Albumin (3.5-5.0) g/dL Globulin (1.7-4.1) g/dL Albumin/Globulin Ratio (1.0-2.8) Lipase (23-300) U/L Procalcitonin (<0.5) ng/mL Urine RBC (0-5/HPF) Urine WBC (0-5/HPF) Ur Squamous Epith Cells (0-5/HPF) Ur Transition Epith Cell (0-5/HPF) Urine Bacteria (None) Ur Culture Indicated? 12/20/19 12/20/19 12/20/19 Range/Units 20:23 22:04 22:04 WBC (4.5-11.0) X10^3/uL RBC (4.0-5.2) X10^6/uL Hgb (12.0-16.0) g/dL Hct (36-46) % MCV (80-100) fL MCH (26-34) PG MCHC (30-36) % RDW (11.6-14.8) % Plt Count (150-400) X10^3/uL Neut % (Auto) (50-75) % Lymph % (Auto) (25-40) % Nash % (Auto) (3-14) % Eos % (Auto) (2-4) % Baso % (Auto) (0-2) % Neut # (Auto) (7526-1466) /uL Lymph # (Auto) (9737-0717) /uL Nash # (Auto) (0-900) /uL Eos # (Auto) (0-450) /uL Baso # (Auto) (0-100) /uL ABG pH (7.35-7.45) ABG pCO2 (35-45) mmHg ABG pO2 (80-100) mmHg ABG HCO3 (22-26) mmol/L ABG Total CO2 (21-31) mmol/L ABG O2 Saturation (95-100) % ABG Base Excess (-2-2) mmol/L FiO2 Sodium 132 L (137-145) mmol/L Potassium 3.9 (3.4-5.1) mmol/L Chloride 106 (98-107) mmol/L Carbon Dioxide 17 L (22-32) mmol/L BUN 31 H (7-17) mg/dL Creatinine 1.42 H (0.52-1.04) mg/dL Estimated GFR 39.2 L (>60) mL/min BUN/Creatinine Ratio 21.8 (6-22) Glucose 314 H D (70-100) mg/dL Lactate (0.7-2.1) mmol/L Calcium 8.6 (8.4-10.2) mg/dL Magnesium 1.2 L (1.6-2.3) mg/dL Total Bilirubin (0.2-1.3) mg/dL AST (14-36) IU/L ALT (<35) IU/L Alkaline Phosphatase (38-126) U/L C-Reactive Protein (<1.0) mg/dL Total Protein (6.3-8.2) g/dL Albumin (3.5-5.0) g/dL Globulin (1.7-4.1) g/dL Albumin/Globulin Ratio (1.0-2.8) Lipase (23-300) U/L Procalcitonin (<0.5) ng/mL Urine RBC 5-10/hpf H (0-5/HPF) Urine WBC 10-30/hpf H (0-5/HPF) Ur Squamous Epith Cells 1-5 /hpf (0-5/HPF) Ur Transition Epith Cell 1-5/hpf (0-5/HPF) Urine Bacteria Few (2-10) H (None) Ur Culture Indicated? Specimen cultured 12/20/19 Range/Units 22:10 WBC (4.5-11.0) X10^3/uL RBC (4.0-5.2) X10^6/uL Hgb (12.0-16.0) g/dL Hct (36-46) % MCV (80-100) fL MCH (26-34) PG MCHC (30-36) % RDW (11.6-14.8) % Plt Count (150-400) X10^3/uL Neut % (Auto) (50-75) % Lymph % (Auto) (25-40) % Nash % (Auto) (3-14) % Eos % (Auto) (2-4) % Baso % (Auto) (0-2) % Neut # (Auto) (1038-5858) /uL Lymph # (Auto) (5833-6921) /uL Nash # (Auto) (0-900) /uL Eos # (Auto) (0-450) /uL Baso # (Auto) (0-100) /uL ABG pH (7.35-7.45) ABG pCO2 (35-45) mmHg ABG pO2 (80-100) mmHg ABG HCO3 (22-26) mmol/L ABG Total CO2 (21-31) mmol/L ABG O2 Saturation (95-100) % ABG Base Excess (-2-2) mmol/L FiO2 Sodium (137-145) mmol/L Potassium (3.4-5.1) mmol/L Chloride (98-107) mmol/L Carbon Dioxide (22-32) mmol/L BUN (7-17) mg/dL Creatinine (0.52-1.04) mg/dL Estimated GFR (>60) mL/min BUN/Creatinine Ratio (6-22) Glucose (70-100) mg/dL Lactate 1.4 (0.7-2.1) mmol/L Calcium (8.4-10.2) mg/dL Magnesium (1.6-2.3) mg/dL Total Bilirubin (0.2-1.3) mg/dL AST (14-36) IU/L ALT (<35) IU/L Alkaline Phosphatase (38-126) U/L C-Reactive Protein (<1.0) mg/dL Total Protein (6.3-8.2) g/dL Albumin (3.5-5.0) g/dL Globulin (1.7-4.1) g/dL Albumin/Globulin Ratio (1.0-2.8) Lipase (23-300) U/L Procalcitonin (<0.5) ng/mL Urine RBC (0-5/HPF) Urine WBC (0-5/HPF) Ur Squamous Epith Cells (0-5/HPF) Ur Transition Epith Cell (0-5/HPF) Urine Bacteria (None) Ur Culture Indicated? Point of Care Testing Glucose POC 289 Urine Dip Bedside Urine Glucose 1000 mg/dl Bedside Urine Bilirubin ++ 2 Bedside Urine Ketone - Negative Urine Specific [place] 1.020 Bedside Urine Occult Blood ++ Bedside Urine pH 5.0 Bedside Urine Protein ++ 100 Bedside Urine Urobilinogen +/- 1mg Bedside Urine Nitrite - Negative Bedside Urine Leukocytes +++ 500 Esterase Point of care testing: Point of Care Testing Glucose POC 289 Urine Dip Bedside Urine Glucose 1000 mg/dl Bedside Urine Bilirubin ++ 2 Bedside Urine Ketone - Negative Urine Specific [place] 1.020 Bedside Urine Occult Blood ++ Bedside Urine pH 5.0 Bedside Urine Protein ++ 100 Bedside Urine Urobilinogen +/- 1mg Bedside Urine Nitrite - Negative Bedside Urine Leukocytes +++ 500 Esterase Imaging Data Chest x-ray: Radiologist's Impression: No acute findings Critical Care Time Critical Care Time Critical Care Time: Yes Total Critical Care Time: 50 Attestation: Her care time included the initial assessment the patient, chart review, review of lab in radiology data, and multiple clinical decisions. Details are evaluation discussed with the hospitalist, SHANDRA Salamanca. The patient will be admitted to SHANDRA Salamanca's service. Discharge Plan Departure Patient Disposition: Admitted as Observation Clinical Impression: Acute dehydration, Continuous tobacco abuse Sepsis Qualifiers: Sepsis type: sepsis due to unspecified organism Sepsis acute organ dysfunction status: with acute organ dysfunction Severe sepsis acute organ dysfunction type: acute renal failure Acute renal failure type: unspecified Severe sepsis shock status: without septic shock Qualified Code(s): A41.9 - Sepsis, unspecified organism Urinary tract infection Qualifiers: Urinary tract infection type: site unspecified Hematuria presence: with hematuria Qualified Code(s): N39.0 - Urinary tract infection, site not specified Diabetes mellitus with hyperglycemia Qualifiers: Diabetes mellitus type: due to underlying condition Diabetes mellitus intermediate designer insulin use: with snf use Qualified Code(s): E08.65 - Diabetes mellitus due to underlying condition with hyperglycemia Acute renal failure Qualifiers: Acute renal failure type: unspecified Qualified Code(s): N17.9 - Acute kidney failure, unspecified COPD (chronic obstructive pulmonary disease) Qualifiers: COPD type: unspecified COPD Qualified Code(s): J44.9 - Chronic obstructive pulmonary disease, unspecified Discharge Date/Time: 12/20/19 23:32 Admit Date/Time: 12/20/19 22:54 Admit Provider: Lon Salamanca
[2019-12-20] MEDS: SODIUM CHLORIDE 0.9% 1,000 ML 1000 ML IV ×3 (19:08→22:23)
--- NOTE | 2019-12-20 19:09 | DI.RAD.S_ITS ---
PROCEDURE: XR CHEST 1V INDICATIONS: Cough. Wheezing. TECHNIQUE: One view of the chest was acquired. COMPARISON: [facility], CT, CT KIDNEY URETER BLADDER (KUB), 09/21/2018, 15:30. [facility], CR, CHEST 1 VIEW, 04/21/2017, 20:39. FINDINGS: Surgical changes and devices: None. Lungs and pleura: Lungs are clear. No pleural effusions or pneumothorax. Mediastinum: Mediastinal contours appear normal. Heart size is normal. Bones and chest wall: No suspicious bony lesions. Overlying soft tissues appear unremarkable. Peripherally calcified splenic cystic lesion measuring 2.6 cm. IMPRESSION: No evidence acute pulmonary process. Dictated by: Bandar Burns M.D. on 12/20/2019 at 19:26 Approved by: Bandar Burns M.D. on 12/20/2019 at 19:28
[2019-12-20 19:21] LABS: Alanine Aminotransferase 23 IU/L (<35); Albumin 4.2 g/dL (3.5-5.0); Albumin Globulin Ratio 0.9 (1.0-2.8); Alkaline Phosphatase 186 U/L (38-126); Aspartate Aminotransferase 40 IU/L (14-36); BUN Creatinine Ratio 19.2 (6-22); Bilirubin Total 1.3 mg/dL (0.2-1.3); Blood Urea Nitrogen 33 mg/dL (7-17); Calcium 9.5 mg/dL (8.4-10.2); Carbon Dioxide 17 mmol/L (22-32); Chloride 99 mmol/L (98-107); Estimated Glomerular Filt Rate 31.4 mL/min (>60); Globulin 4.8 g/dL (1.7-4.1); Lipase 205 U/L (23-300); Sodium 132 mmol/L (137-145)
[2019-12-20 19:22] LABS: Glucose 425 mg/dL (70-100); HEMOLYSIS 116 (0-50); Lactate (Lactic Acid) 3.2 mmol/L (0.7-2.1)
[2019-12-20 19:23] LABS: Potassium 4.2 mmol/L (3.4-5.1)
[2019-12-20] MEDS: INSULIN REGULAR 100 UNIT/ML 3 ML VIAL IV (19:24)
[2019-12-20 19:32] LABS: C-Reactive Protein Quant < 0.5 mg/dL (<1.0)
[2019-12-20 19:37] LABS: Platelet Count 231 X10^3/uL (150-400); White Blood Cell Count 9.8 X10^3/uL (4.5-11.0)
[2019-12-20 19:38] LABS: Hematocrit 37.2 % (36-46); Hemoglobin 13.4 g/dL (12.0-16.0); Mean Corpuscular HGB Conc 36.1 % (30-36); Mean Corpuscular Hemoglobin 32.4 PG (26-34); Mean Corpuscular Volume 89.9 fL (80-100); Red Blood Cell Count 4.13 X10^6/uL (4.0-5.2)
[2019-12-20 19:39] LABS: Add Manual Diff / Slide Review NO; Basophils Absolute Auto 100 /uL (0-100); Eosinophils Absolute Auto 300 /uL (0-450); Eosinophils Percent Auto 2.9 % (2-4); Lymphocytes Absolute Auto 3500 /uL (1100-4500); Lymphocytes Percent Auto 34.7 % (25-40); Monocytes Absolute Auto 600 /uL (0-900); Monocytes Percent Auto 5.5 % (3-14); Neutrophils Absolute Auto 5600 /uL (1500-7000); Neutrophils Percent Auto 55.9 % (50-75); Red Cell Distribution Width 14.5 % (11.6-14.8)
[2019-12-20 19:49] LABS: Procalcitonin 0.15 ng/mL (<0.5)
[2019-12-20] MEDS: ALBUTEROL HFA 60 PUFF/8 GM INH INH (19:52)
[2019-12-20 20:11] LABS: Fractionated Inspired Oxygen 0.21; HCO3 ABG 19 mmol/L (22-26); Oxygen Saturation ABG 96 % (95-100); PCO2 ABG 32.7 mmHg (35-45); PO2 ABG 83 mmHg (80-100); TCO2 ABG 20 mmol/L (21-31); pH ABG 7.37 (7.35-7.45)
[2019-12-20 20:38] LABS: Bacteria Urine Few (2-10); Culture Indicated Urine Specimen Cultured; RBC Urine 5-10/HPF (0-5/HPF); Squamous Epithelial Cell Urine 1-5 /HPF (0-5/HPF); Transitional Epi Cells Urine 1-5/HPF (0-5/HPF); WBC Urine 10-30/HPF (0-5/HPF)
[2019-12-20] MEDS: levoFLOXacin 500 MG/100 ML PIGGYBACK 100 MG IV (20:53)
[2019-12-20 21:14] LABS: Reflexed Lactate in 2 Hours Y
[2019-12-20 22:26] LABS: BUN Creatinine Ratio 21.8 (6-22); Blood Urea Nitrogen 31 mg/dL (7-17); Calcium 8.6 mg/dL (8.4-10.2); Carbon Dioxide 17 mmol/L (22-32); Chloride 106 mmol/L (98-107); Estimated Glomerular Filt Rate 39.2 mL/min (>60); Sodium 132 mmol/L (137-145)
[2019-12-20 22:28] LABS: HEMOLYSIS 79 (0-50)
[2019-12-20 22:29] LABS: Glucose 314 mg/dL (70-100)
[2019-12-20 22:30] LABS: Lactate 2HR (Lactic Acid Rflx) 1.4 mmol/L (0.7-2.1)
[2019-12-20 22:31] LABS: Potassium 3.9 mmol/L (3.4-5.1)
[2019-12-20 23:48] LABS: Magnesium 1.2 mg/dL (1.6-2.3)
--- NOTE | 2019-12-20 23:50 | PM.HP.1 ---
History of Present Illness History of Present Illness Date Patient Seen: 12/20/19 Time Patient Seen: 23:50 Chief complaint: sugars are elevated, feels faint Narrative: Ms. Nilam Mcclain is a 49-year-old female with a history daily smoker, asthma, chronic bronchitis, uncontrolled diabetes, hypertension hyperlipidemia and obesity who presents to the ER for complaints of general malaise. The patient complains feeling poorly for several days with no specific complaints. She adds that she has felt similarly when she had elevated blood sugars. She does state that she has had elevated blood sugars greater than 400 for 4 days with her last blood sugar check this morning being 448, she had said she thought her meter was broken. Patient has had recent change in her insulin regimen. She previously was taking glargine insulin 30 mg at bedtime however insurance stopped covering the medication and she was transition to NPH twice daily. Who is taking NPH 15 mg twice daily post was having low blood sugars following the evening dose and therefore which is take NPH in the morning. The patient was seen by her PCP on 12/16/2019 and was to be started back on glargine but she has not yet made the transition. The patient denies fevers or chills, headaches or dizziness, nasal congestion or sore throat. She denies complaints of chest pain and has had no shortness of breath but has a intermittent cough she attributes to smoking. She has no abdominal pain and denies nausea or vomiting. She describes no changes in bowel or bladder habits. She acknowledges frequency and denies urgency urgency, burning or hematuria. She lives with her and her [id number] in a single family home and has had no COVID-19 exposures. Upon arrival the patient is afebrile with a temperature of 97.8?, heart rate of 92, blood pressure 106/59, respirations of 22 saturating 99% on room air. A chest x-ray was obtained which showed no acute cardiopulmonary processes. On laboratory analysis patient had a normal white count at 9.8 with a hemoglobin of 13.4 and hematocrit of 37.2 with platelets of 231. On chemistry she had a sodium of 132 and a potassium of 4.9, chloride 99 with a bicarb of 17. Her BUN was 33 and a creatinine o 1.72. Her nonfasting glucose was 425. On liver functions she had a bilirubin of 1.3 with a AST of 40, ALT of 23 and alkaline phosphatase of 286. She had lactic acid of 3.2 is following fluid resuscitation on recheck down to 1.4. Her CRP is less than 0.5 and procalcitonin is 0.15. An ABG is obtained with a pH of 7.37, pCO2 of 32.7, PO2 of 83, a bicarb of 19 with a base excess of -6 on 21% FiO2. On urinalysis she has a specific gravity of 1.020, 2+ bilirubin, negative ketones, 2+ blood, 2+ protein, negative nitrites and 3+ leukocyte a stress and is reflexed to culture. Patient has had prior UTIs which revealed pansensitive E coli. In the ER the patient received insulin 5 units IV and was started on levofloxacin after receiving 2 L of normal saline. She also received albuterol MDI for wheezing. Patient is admitted to the medicine service for sepsis with hyperglycemia-borderline DKA, UTI with acute kidney injury. Patient History Medical History (Updated 12/21/19 @ 00:43 by SHANDRA Ibarra) Allergic rhinitis (Acute) Asthma (Acute) Carpal tunnel syndrome of left wrist (Acute) Continuous tobacco abuse (Inactive) COPD (chronic obstructive pulmonary disease) (Chronic) Diabetes mellitus (Chronic) GERD (gastroesophageal reflux disease) (Inactive) Hyperlipidemia (Acute) Hypertension (Inactive 08/20/11) Obesity (06/21/14) Surgical History Status post hysterectomy (~1996) Family & Social History Family History (Updated 12/21/19 @ 00:45 by SHANDRA Ibarra) Father Mesothelioma Mother Dementia Epilepsy Sister Lung disease Other Family history non-contributory Safety & Behavioral: Feels Safe in Current Yes Environment Been Physically Hurt or No Threatened By a Person Tobacco & Substance use: Smoking Status Current every day smoker alcohol intake current alcohol intake frequency 0-2 drinks per day Substance Use Type does not use Comment: The patient lives in a single family home with her and [id number]. She endorses a family history of her father passing away from mesothelioma and her mother having dementia and epilepsy. She has a brother home she does not know of his health history and 1 sister has lung disease. She has 3 children whom she describes as in good health. Occupation: biomedical manager of a service station Smoking: The patient is a current 1/2 pack per day smoker. Alcohol: The patient reports occasional alcohol, 1 drink per year. Substance use the patient denies recreational pharmaceuticals, herbal or cannabis products. Advanced directives: The patient states her desire to be FULL CODE. She designates her to be her surrogate decision maker. Meds Home Medications and Allergies Home Medications Medication Instructions Recorded Confirmed Type clotrimazole 1 % topical cream See Rx Instructions TOPICAL BID 08/12/18 12/16/19 Rx #30 gram Syringes: 1cc Insulin Syringes 1 syr MISCELLANEOUS DIRECTED 09/21/18 12/16/19 History with Sumrall Sumrall 5/16 Inch #1 each 10/19/19 12/16/19 Rx albuterol sulfate 90 mcg/actuation 2 puff INHALATION SEE INSTRUCTIONS 10/19/19 12/16/19 Rx aerosol inhaler PRN #1 inh hydrochlorothiazide 25 mg tablet 25 mg PO DAILY #90 tab 10/19/19 12/16/19 Rx lisinopril 20 mg tablet 20 mg PO DAILY #90 tab 10/19/19 12/16/19 Rx metformin 1,000 mg tablet 1,000 mg PO BIDCC #180 tab 10/19/19 12/16/19 Rx omeprazole 40 mg capsule,delayed 40 mg PO DAILY #90 cap 10/19/19 12/16/19 Rx release pravastatin 80 mg tablet 80 mg PO BEDTIME #90 tab 10/19/19 12/16/19 Rx lancet See Rx Instructions .ROUTE 10/28/19 12/16/19 Rx .COMPLEX #100 each glucometer kit See Rx Instructions .ROUTE 10/28/19 12/16/19 Rx .COMPLEX #1 each glucometer home kit See Rx Instructions .ROUTE 11/01/19 12/16/19 Rx .COMPLEX #1 each insulin glargine 100 unit/mL (3 30 unit SUBCUT DAILY #15 ml 12/16/19 12/16/19 Rx mL) subcutaneous pen test strips See Rx Instructions .ROUTE 12/16/19 12/16/19 Rx .COMPLEX #100 each Allergies Allergy/AdvReac Type Severity Reaction Status Date / Time cephalexin [From KEFLEX] Allergy Unknown ITCHY Verified 12/16/19 09:15 naproxen Allergy Itchy hands Verified 12/16/19 09:15 azithromycin [AZITHROMYCIN] AdvReac Severe vomiting Verified 12/16/19 09:15 Review of Systems Review of Systems ROS: Yes All systems reviewed with the patient and are negative except as otherwise documented Exam Vital Signs (past 8 hours): - 12/20/19 18:50 12/20/19 19:15 12/20/19 19:29 Temperature 97.8 F Pulse Rate 92 H 80 86 Respiratory Rate 22 18 18 Blood Pressure 106/59 L Blood Pressure [Left Arm] 85/60 L 84/52 L Pulse Oximetry 99 98 98 12/20/19 19:46 12/20/19 20:30 12/20/19 21:01 Temperature Pulse Rate 85 82 84 Respiratory Rate 14 18 18 Blood Pressure Blood Pressure [Left Arm] 89/52 L 87/50 L 94/55 L Pulse Oximetry 98 100 98 12/20/19 22:11 12/20/19 23:22 Temperature Pulse Rate 85 78 Respiratory Rate 18 16 Blood Pressure Blood Pressure [Left Arm] 92/55 L 103/78 Pulse Oximetry 98 98 Oxygen Delivery Method Room Air Narrative Exam Narrative: GENERAL APPEARANCE: well developed, obese female with a BMI of 30.28 resting quietly in bed in no acute distress. HEENT: Normocephalic, PERRLA, conjunctiva clear, sclera is anicteric, EOMs intact without nystagmus, no rhinorrhea, mucous membranes are moist and pink. NECK/THYROID: neck supple, no JVD, no thyromegaly, trachea midline. LYMPH NODES: no cervical or supraclavicular lymphadenopathy. SKIN: [place], warm and dry, no visible lesions, rashes, ulcerations or petechiae. HEART: regular rate and rhythm, S1-S2, no murmur, no rubs or gallops, brisk capillary refill, no edema LUNGS: Breath sounds with mild and inspiratory and expiratory wheezing, no coarseness or crackles, no cough present. CHEST: Symmetrical movement, no accessory muscle use, good tidal volume. ABDOMEN: Soft, no distention, diffuse tenderness on palpation, no guarding or peritoneal signs, no organomegaly, no flank pain, mild suprapubic tenderness, active bowel tones. BACK: Normal curvature, nontender to palpation, no CVA tenderness on percussion EXTREMITIES: moves all extremities, strength is 5/5 and symmetrical, no deformities or joint effusions. NEUROLOGIC: AAO x4, no focal neurologic deficits, cranial nerves II-XII grossly intact, sensation intact to light touch, hearing grossly normal to speech. PSYCH: Patient is reserved, short answers to questions, cooperative, stable behavior. Objective Labs Result Diagrams: 12/20/19 18:55 12/20/19 22:04 Labs: Laboratory Results - last 24 hr 12/20/19 12/20/19 12/20/19 18:55 18:55 18:55 WBC 9.8 RBC 4.13 Hgb 13.4 Hct 37.2 MCV 89.9 MCH 32.4 MCHC 36.1 H RDW 14.5 Plt Count 231 Neut % (Auto) 55.9 Lymph % (Auto) 34.7 [place] % (Auto) 5.5 Eos % (Auto) 2.9 Baso % (Auto) 1.0 Neut # (Auto) 5600 Lymph # (Auto) 3500 [place] # (Auto) 600 Eos # (Auto) 300 Baso # (Auto) 100 ABG pH ABG pCO2 ABG pO2 ABG HCO3 ABG Total CO2 ABG O2 Saturation ABG Base Excess FiO2 Sodium 132 L Potassium 4.2 Chloride 99 Carbon Dioxide 17 L BUN 33 H Creatinine 1.72 H Estimated GFR 31.4 L BUN/Creatinine Ratio 19.2 Glucose 425 H Lactate Calcium 9.5 Magnesium Total Bilirubin 1.3 AST 40 H ALT 23 Alkaline Phosphatase 186 H C-Reactive Protein Total Protein 9.0 H Albumin 4.2 Globulin 4.8 H Albumin/Globulin Ratio 0.9 L Lipase 205 Procalcitonin 0.15 Urine RBC Urine WBC Ur Squamous Epith Cells Ur Transition Epith Cell Urine Bacteria Ur Culture Indicated? 12/20/19 12/20/19 12/20/19 18:55 18:55 19:57 WBC RBC Hgb Hct MCV MCH MCHC RDW Plt Count Neut % (Auto) Lymph % (Auto) [place] % (Auto) Eos % (Auto) Baso % (Auto) Neut # (Auto) Lymph # (Auto) [place] # (Auto) Eos # (Auto) Baso # (Auto) ABG pH 7.37 ABG pCO2 32.7 L ABG pO2 83 ABG HCO3 19 L ABG Total CO2 20 L ABG O2 Saturation 96 ABG Base Excess -6.0 L FiO2 0.21 Sodium Potassium Chloride Carbon Dioxide BUN Creatinine Estimated GFR BUN/Creatinine Ratio Glucose Lactate 3.2 H Calcium Magnesium Total Bilirubin AST ALT Alkaline Phosphatase C-Reactive Protein < 0.5 Total Protein Albumin Globulin Albumin/Globulin Ratio Lipase Procalcitonin Urine RBC Urine WBC Ur Squamous Epith Cells Ur Transition Epith Cell Urine Bacteria Ur Culture Indicated? 12/20/19 12/20/19 12/20/19 20:23 22:04 22:04 WBC RBC Hgb Hct MCV MCH MCHC RDW Plt Count Neut % (Auto) Lymph % (Auto) [place] % (Auto) Eos % (Auto) Baso % (Auto) Neut # (Auto) Lymph # (Auto) [place] # (Auto) Eos # (Auto) Baso # (Auto) ABG pH ABG pCO2 ABG pO2 ABG HCO3 ABG Total CO2 ABG O2 Saturation ABG Base Excess FiO2 Sodium 132 L Potassium 3.9 Chloride 106 Carbon Dioxide 17 L BUN 31 H Creatinine 1.42 H Estimated GFR 39.2 L BUN/Creatinine Ratio 21.8 Glucose 314 H D Lactate Calcium 8.6 Magnesium 1.2 L Total Bilirubin AST ALT Alkaline Phosphatase C-Reactive Protein Total Protein Albumin Globulin Albumin/Globulin Ratio Lipase Procalcitonin Urine RBC 5-10/hpf H Urine WBC 10-30/hpf H Ur Squamous Epith Cells 1-5 /hpf Ur Transition Epith Cell 1-5/hpf Urine Bacteria Few (2-10) H Ur Culture Indicated? Specimen cultured 12/20/19 22:10 WBC RBC Hgb Hct MCV MCH MCHC RDW Plt Count Neut % (Auto) Lymph % (Auto) [place] % (Auto) Eos % (Auto) Baso % (Auto) Neut # (Auto) Lymph # (Auto) [place] # (Auto) Eos # (Auto) Baso # (Auto) ABG pH ABG pCO2 ABG pO2 ABG HCO3 ABG Total CO2 ABG O2 Saturation ABG Base Excess FiO2 Sodium Potassium Chloride Carbon Dioxide BUN Creatinine Estimated GFR BUN/Creatinine Ratio Glucose Lactate 1.4 Calcium Magnesium Total Bilirubin AST ALT Alkaline Phosphatase C-Reactive Protein Total Protein Albumin Globulin Albumin/Globulin Ratio Lipase Procalcitonin Urine RBC Urine WBC Ur Squamous Epith Cells Ur Transition Epith Cell Urine Bacteria Ur Culture Indicated? Assessment & Plan Assessment & Plan narrative: This is a 49-year-old female patient who presents to the ER with general complaints malaise and is found to have sepsis secondary to UTI, hyperglycemia without acidosis and acute kidney injury. 1. Sepsis, acute, present on admission, active -patient presents septic affecting endocrine system with elevated glucose of 425, renal injury with an increase in creatinine to 1.72 with a baseline of 0.5 (09/02/2019) and lactate of 3.2. Patient also had hypotension with MAP less than 70 in the ER for 3 hours improved with fluid resuscitation. -urinalysis is positive for WBCs, 2+ bilirubin, negative ketones, 2+ blood, 2+ protein, negative nitrites and 3+ leukocyte esterase. Patient with 2 previous urinary tract infections in the last year in September and April both pansensitive E coli. -the patient received 2 L normal saline in the emergency department with improvement of lactate down to 1.4, CRP is less than 0.5 and procalcitonin is 0.15. -will monitor infectious markers. 2. Acute cystitis, present on admission, active. -patient reports frequency, denies urgency burning or hematuria. Mild suprapubic tenderness on palpation. -WBCs are 9.8, CRP is less than 0.5, procalcitonin is 0.15. -urinalysis is positive for WBCs, 2+ bilirubin, negative ketones, 2+ blood, 2+ protein, negative nitrites and 3+ leukocyte esterase. Patient with 2 previous urinary tract infections in the last year in September and April both pansensitive E coli. -patient received levofloxacin 750 mg IV in the emergency department will continue levofloxacin 750 mg IV daily. 3. Diabetes type 2 uncontrolled with hyperglycemia, chronic present on admission, active. -the patient presents with a blood sugar of 425 reports having a blood sugar of 448 at home and blood sugars greater than 400 for several days. -Anion gap is 16, ABG reveals pH of 7.37 with metabolic acidosis and respiratory alkalosis. Urinalysis negative for ketones. -insurance stopped covering glargine and was started on NPH 15 units twice daily. She has been taking NPH 15 units in the morning only because the evening dose precipitates hypoglycemia. She is be transitioned back to glargine but has not yet received the medication from the pharmacy. -ordered glargine 30 units daily at bedtime. -Accu-Cheks a.c. HS with low-dose correctional insulin. -will hold metformin at this time in setting of sepsis and borderline acidosis. 3. Acute kidney injury secondary to sepsis and dehydration, present on admission, active. -the patient presents with a BUN of 33 and creatinine 1.72 greater her last documented creatinine was 0.50 on 09/02/2019. -the patient received 2 L of normal saline IV and on recheck of chemistry creatinine is improved to 1.42. -will continue hydration with normal saline 100 cc/hour. -will monitor renal function on chemistries. 4. Hypertension, present on admission, active. -the patient had low blood pressure in the emergency department with MAP less than 70 responsive to fluid resuscitation. -the patient has an elevated BUN and is dehydrated secondary to hyperglycemia for several days. -the patient routinely takes lisinopril 20 mg and hydrochlorothiazide 25 mg daily. Both medications are held due to hypotensive episode and dehydration. -will follow blood pressures and restart medications as patient stabilizes. 5. COPD, chronic bronchitis, present on admission, active. -patient has mild inspiratory and expiratory wheezing. No evidence of hypoxemia or respiratory distress. -continue albuterol MDI 2 puffs every 4 hours as needed. -order Combivent albuterol/ipratropium twice daily. -monitor pulse oximetry with final signs and as needed. 6. Asthma, probable mild persistent, present on admission, active -symptoms and treatment as for problem #5 above. 7. Hyperlipidemia, present on admission, stable. -will continue patient's home regimen of pravastatin 80 mg daily at bedtime. VTE prophylaxis: SCDs, enoxaparin IV fluid: Normal saline 100 cc/hour. Diet: Small constant carbohydrate. Code status: FULL CODE. The patient is admitted to the hospital for acute UTI and resolving sepsis in the setting of hyperglycemia and dehydration with acute kidney injury. The patient is admitted as observation with expected length of stay to be less than 2 midnights. Scores GCS K[place] coma scale eye opening: Spontaneous [place] coma scale verbal response: Orientated [place] coma scale motor response: Obey commands Annie coma scale total score: 15 SOFA PaO2/FIO2: >=400 mmHg Platelets: >= 150 Bilirubin: 1.2-1.9 mg/dL Hypotension: MAP >= 70 mmHg [place] Coma Scale: 15 Renal: Creatinine 1.2-1.9 mg/dL SOFA Score: 2
[2019-12-21] VITALS (7 sets, daily range): BP systolic 102–136; BP diastolic 55–76; PULSE 69–80; RESP 14–18; TEMP 36.8–37.3; O2SAT 95–98; BMI 30.7
[2019-12-21] MEDS: SODIUM CHLORIDE 0.9% 1,000 ML 100 ML IV (00:29)
--- NOTE | 2019-12-21 01:01 | PC.NURSE ---
NOC Shift. pt arrived at 2325 on 12/20/2019. pt AO and receptive to care. pt denying pain and states UTIs are common for her but she is not having her typical UTI symptoms as she typically has pain. Urine is cloudy and yellow. NS started infusing to left forearm at 100ml/hr. SBA to BR. ADA diet. Wearing non-slide brown socks with transfers. SCD's on. Inspiration wheezes heard to left lung pugh (anterior and posterior). Intermittent ABX for UTI and IV fluids to assist with kidney injury. RT pending evaluation.
[2019-12-21] MEDS: INSULIN GLARGINE 100 UNIT/ML 3ML PEN 30 UNIT SUBCUT (01:37)
[2019-12-21 06:13] LABS: BUN Creatinine Ratio 22.6 (6-22); Blood Urea Nitrogen 28 mg/dL (7-17); Calcium 8.6 mg/dL (8.4-10.2); Carbon Dioxide 20 mmol/L (22-32); Chloride 110 mmol/L (98-107); Estimated Glomerular Filt Rate 45.8 mL/min (>60); HEMOLYSIS < 15 (0-50); Potassium 3.2 mmol/L (3.4-5.1); Sodium 137 mmol/L (137-145)
[2019-12-21 06:18] LABS: Hemoglobin A1C% w Est Avg Glu > 14.0 % (4.0-6.0)
[2019-12-21 06:19] LABS: Add Manual Diff / Slide Review NO; Basophils Absolute Auto 100 /uL (0-100); Eosinophils Absolute Auto 300 /uL (0-450); Eosinophils Percent Auto 5.1 % (2-4); Hematocrit 31.1 % (36-46); Hemoglobin 11.1 g/dL (12.0-16.0); Lymphocytes Absolute Auto 2900 /uL (1100-4500); Lymphocytes Percent Auto 47.5 % (25-40); Mean Corpuscular HGB Conc 35.5 % (30-36); Monocytes Absolute Auto 400 /uL (0-900); Monocytes Percent Auto 6.9 % (3-14); Neutrophils Absolute Auto 2400 /uL (1500-7000); Neutrophils Percent Auto 39.5 % (50-75); Platelet Count 150 X10^3/uL (150-400); Red Blood Cell Count 3.46 X10^6/uL (4.0-5.2); Red Cell Distribution Width 13.9 % (11.6-14.8)
[2019-12-21 06:29] LABS: Glucose 213 mg/dL (70-100)
[2019-12-21] MEDS: MAGNESIUM SULFATE 2 GM/50 ML PIGGYBACK IV (08:15)
[2019-12-21] MEDS: POTASSIUM CHLORIDE 20 MEQ TAB 40 MEQ PO (08:15)
[2019-12-21] MEDS: ENOXAPARIN 40 MG/0.4 ML SYRINGE SUBCUT (08:15)
[2019-12-21] MEDS: ALBUTEROL/IPRATROPIUM MDI 2 PUFF INH (08:57)
[2019-12-21] MEDS: INSULIN ASPART 100 UNIT/ML INSULN PEN SUBCUT (12:04)
--- NOTE | 2019-12-21 12:08 | CM.DANOTE ---
Patient is a 49 year old female who was admitted on 12/20/19 OBS for Sugar levels, faint. Pt has [employer] for insurance and her PCP is Dr. Trujillo. EMR was reviewed. Per MD, pt with a hx of asthma and diabetes which has been poorly controlled due to medication change. Pt admitted for possible sepsis, UTI. Per MD, pt greatly improved with plan of d/c home later today and no identified barriers to discharge. Per MD, pt has been working with PCP towards getting insurance preauth for the long lasting insulin medication recommended as [place] requires pre-auth for long lasting. Pt aware of current change in short acting insulin prior to d/c to assist her in remaining stable while waiting for insurance auth through PCP office. Per Rn, pt is independent at baseline and no concerns at this time. Plan: SW to follow for likely pt d/c home later today via spouse POV and no current SW needs. Pt working with PCP on insurance auth in outpt setting. HARRIS Jose Discharge Planning/Care Management CM Discharge Assessment Start: 12/21/19 12:06 Freq: Status: Active Protocol: Document 12/21/19 12:06 (Rec: 12/21/19 12:08 [id number]) Discharge Planning Assessment Assigned Director Card ARTURO Acharya DPOA/Assigned Designee Name informally spouse Yony Contact Information [phone] Advance Directives? No Advance Directives on File No History Provided By Patient,Medical Record Has Patient been admitted in last 30 No days? Prior Living Arrangements House Household Members spouse Type of transporation used prior to Drives own vehicle admit Independent with ADL's Yes Is patient alert and oriented? Yes Comment Home with family support Barriers to Discharge No Discharge Plan Home Transportation Arrangement Spouse likely to provide transport home when stable for discharge Referrals Initiated None needed Review Status In Process Please Provide Date Initial DC 12/21/19 Assessment Was Performed Next Review Type Continued Stay Review
--- NOTE | 2019-12-21 12:42 | PC.NURSE ---
Discharge Pt denies pain. BS were controlled with lantus and aspart during the shift. Pt took all belongings home with her. D/c instructions provided to pt and aware to call PCP to set up apt for f/u and also to ask her any additional questions or concerns she has regarding her hospitalization. pt left in w/c with RN escort to her vehicle by the ER. Rx transmitted to her preferred pharmacy.
--- NOTE | 2019-12-21 13:44 | PM.DS.1 ---
History of Present Illness History of Present Illness Date Patient Seen: 12/21/19 Time Patient Seen: 08:30 Chief complaint: sugars are elevated, feels faint Narrative: As per SHANDRA Ibarra: Ms. Nilam Mcclain is a 49-year-old female with a history daily smoker, asthma, chronic bronchitis, uncontrolled diabetes, hypertension hyperlipidemia and obesity who presents to the ER for complaints of general malaise. The patient complains feeling poorly for several days with no specific complaints. She adds that she has felt similarly when she had elevated blood sugars. She does state that she has had elevated blood sugars greater than 400 for 4 days with her last blood sugar check this morning being 448, she had said she thought her meter was broken. Patient has had recent change in her insulin regimen. She previously was taking glargine insulin 30 mg at bedtime however insurance stopped covering the medication and she was transition to NPH twice daily. Who is taking NPH 15 mg twice daily post was having low blood sugars following the evening dose and therefore which is take NPH in the morning. The patient was seen by her PCP on 12/16/2019 and was to be started back on glargine but she has not yet made the transition. The patient denies fevers or chills, headaches or dizziness, nasal congestion or sore throat. She denies complaints of chest pain and has had no shortness of breath but has a intermittent cough she attributes to smoking. She has no abdominal pain and denies nausea or vomiting. She describes no changes in bowel or bladder habits. She acknowledges frequency and denies urgency urgency, burning or hematuria. She lives with her and her [id number] in a single family home and has had no COVID-19 exposures. Upon arrival the patient is afebrile with a temperature of 97.8?, heart rate of 92, blood pressure 106/59, respirations of 22 saturating 99% on room air. A chest x-ray was obtained which showed no acute cardiopulmonary processes. On laboratory analysis patient had a normal white count at 9.8 with a hemoglobin of 13.4 and hematocrit of 37.2 with platelets of 231. On chemistry she had a sodium of 132 and a potassium of 4.9, chloride 99 with a bicarb of 17. Her BUN was 33 and a creatinine o 1.72. Her nonfasting glucose was 425. On liver functions she had a bilirubin of 1.3 with a AST of 40, ALT of 23 and alkaline phosphatase of 286. She had lactic acid of 3.2 is following fluid resuscitation on recheck down to 1.4. Her CRP is less than 0.5 and procalcitonin is 0.15. An ABG is obtained with a pH of 7.37, pCO2 of 32.7, PO2 of 83, a bicarb of 19 with a base excess of -6 on 21% FiO2. On urinalysis she has a specific gravity of 1.020, 2+ bilirubin, negative ketones, 2+ blood, 2+ protein, negative nitrites and 3+ leukocyte a stress and is reflexed to culture. Patient has had prior UTIs which revealed pansensitive E coli. In the ER the patient received insulin 5 units IV and was started on levofloxacin after receiving 2 L of normal saline. She also received albuterol MDI for wheezing. Patient is admitted to the medicine service for sepsis with hyperglycemia-borderline DKA, UTI with acute kidney injury. Discharge Providers Provider Date of admission: 12/20/19 22:54 Discharge Date: 12/21/19 Primary care physician: Harmony Trujillo DO Consults: 12/20/19 23:28 Consult to Dietitian, Adult Routine Comment: Reason For Exam: Uncontrolled diabetes, hyperglycemia Consult to Discharge Planning Routine Comment: 12/20/19 23:33 Consult to Respiratory Therapy Evaluate & Treat Comment: Asthma, COPD, wheeze Physician Instructions: Evaluate and treat Discharge provider: Lon Goff DO Summary Hospital Course Discharge Diagnosis: 1. Acute cystitis, present on admission, active 2. uncontrolled type 2 diabetes with hyperglycemia 3. Anion gap metabolic acidosis 4. acute kidney injury, present on admission, improved 5. Hypertension, present on admission, active 6. COPD, chronic proctitis, present on admission, active 7. hyperlipidemia, present on admission, stable 8., dehydration, acute, resolved 9. sepsis ruled out Hospital Course: This is a 49-year-old female patient who presented to the ER with general complaints malaise and was found to be severely hyperglycemic, dehydrated, and have an acute urinary tract infection. She was treated with IV antibiotics, and given fluids and insulin. Further history was obtained and patient had not been taking her long-acting insulin as her insurance was no longer covering this without prior authorization. Her primary care provider is currently working on obtaining this medication, but patient has not been taking anything other than metformin as her NPH causes her hypoglycemia. She also had a mild anion gap metabolic acidosis which could be from mild DKA or dehydration. Her A1c was repeated and was > 14 %. her glucose improved after resuming her prior regimen of insulin glargine 30 units. She was also given IV fluids. all of the above treatments resulted in a rapidly improving patient. She was asymptomatic the morning after admission and was discharged to complete antibiotic therapy at home. She was discharged on Oral Levaquin given reported allergy to cephalosporins for treatment of acute cystitis. she met diagnostic criteria for sepsis, however her rapid improvement likely represents hyperglycemia as the cause of her symptoms rather than a dysregulated response and therefore sepsis is unlikely. Patient was given a glargine/Lantus Pen upon discharge, and hopefully this will last her until her authorization can be approved. If not, I did recommend that she take some NPH, at lower dose (I recommended 8 units), to try and prevent a recurrence of her symptoms. Status at Discharge Cognitive/behavioral status at discharge: oriented Exam Vital Signs (past 8 hours): - 12/21/19 08:10 12/21/19 08:12 12/21/19 08:58 Temperature 98.6 F Pulse Rate 80 72 Respiratory Rate 16 14 Blood Pressure 102/55 L Pulse Oximetry 96 95 98 12/21/19 11:38 Temperature 98.3 F Pulse Rate 69 Respiratory Rate 16 Blood Pressure 119/76 Pulse Oximetry 97 Oxygen Delivery Method Room Air Oxygen Flow Rate 0 Narrative Exam Narrative: GENERAL APPEARANCE: Well developed, well nourished, in no acute distress. SKIN: Inspection of the skin reveals no rashes, ulcerations or petechiae. HEENT: Normocephalic atraumatic, extraocular muscles are intact, oropharynx is clear and mucous membranes are moist, neck is supple without adenopathy NECK: Supple and symmetric. There was no thyroid enlargement, and no tenderness, or masses were felt. CHEST: Normal AP diameter and normal contour without any kyphoscoliosis. LUNGS: Auscultation of the lungs revealed no wheezes, rhonchi, or rales. CARDIOVASCULAR: There was a regular rate and rhythm without any murmurs, gallops, rubs. Peripheral pulses were 2+ and symmetric. ABDOMEN: Soft and nontender with normal bowel sounds. No ascites was noted. MUSCULOSKELETAL: There was no tenderness or effusions noted. Muscle strength and tone were normal. EXTREMITIES: No cyanosis, clubbing or edema. NEUROLOGIC: Alert and oriented x 3. Normal affect. Gait was normal. Strength is +5/5 in the Upper Extremities and Lower Extremities Bilaterally. Sensation to touch was normal. Objective Labs Result Diagrams: 12/21/19 05:12 12/21/19 05:12 Labs: Laboratory Results - last 24 hr 12/20/19 12/20/19 12/20/19 18:55 18:55 18:55 WBC 9.8 RBC 4.13 Hgb 13.4 Hct 37.2 MCV 89.9 MCH 32.4 MCHC 36.1 H RDW 14.5 Plt Count 231 Neut % (Auto) 55.9 Lymph % (Auto) 34.7 [place] % (Auto) 5.5 Eos % (Auto) 2.9 Baso % (Auto) 1.0 Neut # (Auto) 5600 Lymph # (Auto) 3500 [place] # (Auto) 600 Eos # (Auto) 300 Baso # (Auto) 100 ABG pH ABG pCO2 ABG pO2 ABG HCO3 ABG Total CO2 ABG O2 Saturation ABG Base Excess FiO2 Sodium 132 L Potassium 4.2 Chloride 99 Carbon Dioxide 17 L BUN 33 H Creatinine 1.72 H Estimated GFR 31.4 L BUN/Creatinine Ratio 19.2 Glucose 425 H Hemoglobin A1c Lactate Calcium 9.5 Magnesium Total Bilirubin 1.3 AST 40 H ALT 23 Alkaline Phosphatase 186 H C-Reactive Protein Total Protein 9.0 H Albumin 4.2 Globulin 4.8 H Albumin/Globulin Ratio 0.9 L Lipase 205 Procalcitonin 0.15 Urine RBC Urine WBC Ur Squamous Epith Cells Ur Transition Epith Cell Urine Bacteria Ur Culture Indicated? 12/20/19 12/20/19 12/20/19 18:55 18:55 19:57 WBC RBC Hgb Hct MCV MCH MCHC RDW Plt Count Neut % (Auto) Lymph % (Auto) [place] % (Auto) Eos % (Auto) Baso % (Auto) Neut # (Auto) Lymph # (Auto) [place] # (Auto) Eos # (Auto) Baso # (Auto) ABG pH 7.37 ABG pCO2 32.7 L ABG pO2 83 ABG HCO3 19 L ABG Total CO2 20 L ABG O2 Saturation 96 ABG Base Excess -6.0 L FiO2 0.21 Sodium Potassium Chloride Carbon Dioxide BUN Creatinine Estimated GFR BUN/Creatinine Ratio Glucose Hemoglobin A1c Lactate 3.2 H Calcium Magnesium Total Bilirubin AST ALT Alkaline Phosphatase C-Reactive Protein < 0.5 Total Protein Albumin Globulin Albumin/Globulin Ratio Lipase Procalcitonin Urine RBC Urine WBC Ur Squamous Epith Cells Ur Transition Epith Cell Urine Bacteria Ur Culture Indicated? 12/20/19 12/20/19 12/20/19 20:23 22:04 22:04 WBC RBC Hgb Hct MCV MCH MCHC RDW Plt Count Neut % (Auto) Lymph % (Auto) [place] % (Auto) Eos % (Auto) Baso % (Auto) Neut # (Auto) Lymph # (Auto) [place] # (Auto) Eos # (Auto) Baso # (Auto) ABG pH ABG pCO2 ABG pO2 ABG HCO3 ABG Total CO2 ABG O2 Saturation ABG Base Excess FiO2 Sodium 132 L Potassium 3.9 Chloride 106 Carbon Dioxide 17 L BUN 31 H Creatinine 1.42 H Estimated GFR 39.2 L BUN/Creatinine Ratio 21.8 Glucose 314 H D Hemoglobin A1c Lactate Calcium 8.6 Magnesium 1.2 L Total Bilirubin AST ALT Alkaline Phosphatase C-Reactive Protein Total Protein Albumin Globulin Albumin/Globulin Ratio Lipase Procalcitonin Urine RBC 5-10/hpf H Urine WBC 10-30/hpf H Ur Squamous Epith Cells 1-5 /hpf Ur Transition Epith Cell 1-5/hpf Urine Bacteria Few (2-10) H Ur Culture Indicated? Specimen cultured 12/20/19 12/21/19 12/21/19 22:10 05:12 05:12 WBC 6.0 RBC 3.46 L Hgb 11.1 L Hct 31.1 L MCV 90.0 MCH 32.0 MCHC 35.5 RDW 13.9 Plt Count 150 Neut % (Auto) 39.5 L Lymph % (Auto) 47.5 H [place] % (Auto) 6.9 Eos % (Auto) 5.1 H Baso % (Auto) 1.0 Neut # (Auto) 2400 Lymph # (Auto) 2900 [place] # (Auto) 400 Eos # (Auto) 300 Baso # (Auto) 100 ABG pH ABG pCO2 ABG pO2 ABG HCO3 ABG Total CO2 ABG O2 Saturation ABG Base Excess FiO2 Sodium 137 Potassium 3.2 L Chloride 110 H Carbon Dioxide 20 L BUN 28 H Creatinine 1.24 H Estimated GFR 45.8 L BUN/Creatinine Ratio 22.6 H Glucose 213 H D Hemoglobin A1c Lactate 1.4 Calcium 8.6 Magnesium Total Bilirubin AST ALT Alkaline Phosphatase C-Reactive Protein Total Protein Albumin Globulin Albumin/Globulin Ratio Lipase Procalcitonin Urine RBC Urine WBC Ur Squamous Epith Cells Ur Transition Epith Cell Urine Bacteria Ur Culture Indicated? 12/21/19 05:12 WBC RBC Hgb Hct MCV MCH MCHC RDW Plt Count Neut % (Auto) Lymph % (Auto) [place] % (Auto) Eos % (Auto) Baso % (Auto) Neut # (Auto) Lymph # (Auto) [place] # (Auto) Eos # (Auto) Baso # (Auto) ABG pH ABG pCO2 ABG pO2 ABG HCO3 ABG Total CO2 ABG O2 Saturation ABG Base Excess FiO2 Sodium Potassium Chloride Carbon Dioxide BUN Creatinine Estimated GFR BUN/Creatinine Ratio Glucose Hemoglobin A1c > 14.0 H Lactate Calcium Magnesium Total Bilirubin AST ALT Alkaline Phosphatase C-Reactive Protein Total Protein Albumin Globulin Albumin/Globulin Ratio Lipase Procalcitonin Urine RBC Urine WBC Ur Squamous Epith Cells Ur Transition Epith Cell Urine Bacteria Ur Culture Indicated? Discharge Plan Discharge Plan Patient Disposition: Home Discharge comment: You were admitted to the hospital with high blood sugars and a urinary tract infection. Until your insurance approves long acting insulin please take a reduced dose of NPH to try and avoid hypoglycemia. I recommend you start with 8 units once daily at first and then if no hypoglycemia is present taking it at bedtime as well until your long acting insulin is approved. However you did receive an insulin pen upon discharge which you can use until you run out. You are being discharged on an antibiotic and should complete 4 additional days for a urinary tract infection. Discharge orders & Medications Prescriptions: New levofloxacin 750 mg tablet 750 mg PO DAILY 4 Days Qty: 4 RF: 0 Continued clotrimazole 1 % cream See Rx Instructions Topical BID Qty: 30 RF: 1 lancet See Rx Instructions .ROUTE .COMPLEX Qty: 100 RF: 2 glucometer kit See Rx Instructions .ROUTE .COMPLEX Qty: 1 RF: 0 glucometer home kit See Rx Instructions .ROUTE .COMPLEX Qty: 1 RF: 0 (DME) [place] 5/16 Inch 0 .Route .MEDSUPPLY Qty: 1 RF: 5 hydrochlorothiazide 25 mg tablet 25 mg PO DAILY Qty: 90 RF: 0 lisinopril 20 mg tablet 20 mg PO DAILY Qty: 90 RF: 0 omeprazole 40 mg capsule,delayed release(DR/EC) 40 mg PO DAILY Qty: 90 RF: 0 pravastatin 80 mg tablet 80 mg PO BEDTIME Qty: 90 RF: 0 metformin 1,000 mg tablet 1,000 mg PO BIDCC Qty: 180 RF: 0 albuterol sulfate [Ventolin HFA] 90 mcg/actuation HFA aerosol inhaler 2 puff Inhalation SEE INSTRUCTIONS PRN (Reason: shortness of breath or wheezing) Qty: 1 RF: 2 test strips See Rx Instructions .ROUTE .COMPLEX Qty: 100 RF: 2 insulin glargine 100 unit/mL (3 mL) insulin pen 30 unit SUBCUT DAILY Qty: 15 RF: 0 Syringes: 1cc Insulin Syringes with [place] 1 syr miscellaneous DIRECTED RF: 0 Follow up/Referrals: Harmony Trujillo DO [Primary Care Provider] - Discharge Health Status Health Concerns: Diabetes mellitus Acute Cystitis Diet/Activity/Treatments Diet: Diet as Tolerated and Carb-consistent/Diabetic Activity: As tolerated Visit Report/Discharge Packet Instructions: DI for Urinary Tract Infection (UTI), DI for Hypoglycemia, DI for Hyperglycemia -- Adult Discharge Data Primary Care Provider: Harmony Trujillo Attending Provider: Lon Salamanca Admit Date/Time: 12/20/19 22:54 Discharges patient from system. Discharge Date/Time: 12/21/19 12:35 Quality VTE Deep Vein Thrombosis/Pulmonary Embolism Present on Admission: No
--- NOTE | 2019-12-26 09:51 | PC.NURSE ---
Late entry: NS started 12/19 2223 stopped 12/19 2323 NS started 12/20 0029 stopped 12/20 0651 Magnesium stopped 12/20 1015
== END 2019-12-21 12:35 | disposition home or self-care (01) ==
LOC: ED 18:52 → AC 22:55
PROVIDERS: Admitting Provider Nurse Practitioner Adult Health; Emergency Provider Emergency Medicine; PCP Family Medicine; Visit Provider Nurse Practitioner Adult Health
DX: N30.00 Acute cystitis without hematuria (principal); R53.81 Other malaise; E11.65 Type 2 diabetes mellitus with hyperglycemia; Z79.4 Long term (current) use of insulin; E87.2 Acidosis; I10 Essential (primary) hypertension; J44.9 Chronic obstructive pulmonary disease, unspecified; K62.89 Other specified diseases of anus and rectum; E78.5 Hyperlipidemia, unspecified; E86.0 Dehydration
CPT/HCPCS: 36415; 36600; 71045; 80048; 80053; 81003; 81015; 82805; 82962; 83036; 83605; 83690; 83735; 84145; 85025; 86140; 87040; 87086; 94640; 94760; 96361; 96365; 96372; 96375; 99284; 99291; G0378; J1650; J1956

== ENCOUNTER → 2020-02-15 11:01 | Outpatient (CLI) | payer OTHER, SELFPAY ==
[2019-12-21 01:46] VITALS: BMI 30.7
[2020-02-15 12:49] LABS: BUN Creatinine Ratio 28.6 (6-22); Blood Urea Nitrogen 28 mg/dL (7-17); Calcium 9.7 mg/dL (8.4-10.2); Carbon Dioxide 25 mmol/L (22-32); Chloride 106 mmol/L (98-107); Estimated Glomerular Filt Rate > 60.0 mL/min (>60); Glucose 166 mg/dL (70-100); HEMOLYSIS < 15 (0-50); Potassium 3.6 mmol/L (3.4-5.1); Sodium 139 mmol/L (137-145)
[2020-02-15 13:39] LABS: Hemoglobin A1C% w Est Avg Glu 8.5 % (4.0-6.0)
== END ==
LOC: LAB 11:02
PROVIDERS: PCP Family Medicine; Referring Provider Family Medicine; Visit Provider Family Medicine
DX: E11.9 Type 2 diabetes mellitus without complications (principal); I10 Essential (primary) hypertension
CPT/HCPCS: 36415; 80048; 83036

== ENCOUNTER 2020-04-10 18:36 | Emergency (ER) | payer OTHER, SELFPAY ==
[2019-12-21 01:46] VITALS: BMI 30.7
[2020-04-10] VITALS (11 sets, daily range): BP systolic 106–122; BP diastolic 57–76; PULSE 70–101; RESP 14–42; TEMP 36.7; O2SAT 97–100
--- NOTE | 2020-04-10 18:44 | DI.RAD.S_ITS ---
PROCEDURE: XR CHEST 1V INDICATIONS: Chest pain TECHNIQUE: One view of the chest was acquired. COMPARISON: [facility], CR, XR CHEST 1V, 12/20/2019, 19:11. FINDINGS: Surgical changes and devices: None. Lungs and pleura: Lungs are clear. No pleural effusions or pneumothorax. Mediastinum: Mediastinal contours appear normal. Heart size is normal. Bones and chest wall: No suspicious bony lesions. Overlying soft tissues appear unremarkable. IMPRESSION: No acute cardiopulmonary process demonstrated radiographically. Dictated by: Geronimo Amezcua M.D. on 04/10/2020 at 19:30 Approved by: Geronimo Amezcua M.D. on 04/10/2020 at 19:30
--- NOTE | 2020-04-10 18:51 | ED_ITS ---
HPI - Chest Pain General Chief Complaint: Chest Pain Stated Complaint: thinks having a heart attack chest pain Time Seen by Provider: 04/10/20 18:51 Source: patient Mode of arrival: Wheelchair Limitations: no limitations History of Present Illness HPI narrative: 50-year-old woman with a history of diabetes, high cholesterol and hypertension with COPD and continues to smoke at least a pack a day presents with acute onset of chest pain. 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 It was associated with diaphoresis and dyspnea as well as significant anxiety. She initially describes it as a 7/10 no burning sensation no pressure but a sense that somebody is ?trying to rip her heart out of her chest?. She notes that it is positional and worse when she sits up straight better when she is reclining. She has not done any new activities that would cause significantly changed musculoskeletal pain. She does note that they were camping in [place] and drove home approximately 5 days ago but has not noticed any extra lower extremity edema. She denies fever, chills. She states she has her usual smoker's cough that is entirely unchanged from her baseline. No abdominal pain. She has chronic diarrhea post gallbladder removal. No flank pain, no dysuria or urgency, no lower extremity edema, no rashes, no headaches no neurologic signs or complaints, no weight changes recently and feels that stress levels have actually been under good control after her recent vacation. Related Data Previous Rx's Medication Instructions Recorded clotrimazole 1 % topical cream See Rx Instructions TOPICAL BID 08/12/18 #30 gram albuterol sulfate 90 mcg/actuation 2 puff INHALATION SEE INSTRUCTIONS 10/19/19 aerosol inhaler PRN #1 inh metformin 1,000 mg tablet 1,000 mg PO BIDCC #180 tab 10/19/19 lancet See Rx Instructions .ROUTE 10/28/19 .COMPLEX #100 each glucometer kit See Rx Instructions .ROUTE 10/28/19 .COMPLEX #1 each glucometer home kit See Rx Instructions .ROUTE 11/01/19 .COMPLEX #1 each test strips See Rx Instructions .ROUTE 12/16/19 .COMPLEX #100 each [place] 5/16 Inch #1 each 12/21/19 hydrochlorothiazide 25 mg tablet 12.5 mg PO DAILY #45 tab 12/28/19 lancets #50 each 12/28/19 omeprazole 40 mg capsule,delayed 40 mg PO DAILY #90 cap 01/16/20 release pravastatin 80 mg tablet 80 mg PO BEDTIME #90 tab 01/16/20 insulin glargine 100 unit/mL 30 unit SUBCUT DAILY 90 Days #10 ml 01/27/20 subcutaneous solution lisinopril 20 mg tablet 20 mg PO DAILY #90 tab 01/27/20 Syringes: 1cc Insulin Syringes #100 each 03/26/20 with [place] Allergies Allergy/AdvReac Type Severity Reaction Status Date / Time cephalexin [From KEFLEX] Allergy Unknown ITCHY Verified 04/10/20 18:42 naproxen Allergy Itchy hands Verified 04/10/20 18:42 azithromycin [AZITHROMYCIN] AdvReac Severe vomiting Verified 04/10/20 18:42 loratadine AdvReac Mild nausea Verified 04/10/20 18:42 Review of Systems Review of Systems Narrative: Remainder of review of systems including constitutional, ENT, ca rdiovascular, respiratory, GI, , musculoskeletal, skin, neurologic and psychiatric systems reviewed and are unremarkable except as noted in HPI. Patient History Medical History Allergic rhinitis (Acute) Asthma (Acute) Carpal tunnel syndrome of left wrist (Acute) Continuous tobacco abuse (Inactive) COPD (chronic obstructive pulmonary disease) (Chronic) Diabetes mellitus (Chronic) GERD (gastroesophageal reflux disease) (Inactive) Hyperlipidemia (Acute) Hypertension (Inactive 08/20/11) Obesity (Acute 06/21/14) Sepsis (Inactive) Surgical History Status post hysterectomy (~1996) Family History Father Mesothelioma Mother Dementia Epilepsy Sister Lung disease Other Family history non-contributory Social History household members: spouse Smoking Status: Current every day smoker alcohol intake: current Smoking Status: Current every day smoker alcohol intake frequency: 0-2 drinks per day Substance Use Type: does not use Exam Narrative Exam Narrative: General: Healthy appearing, anxious but in no acute distress. Able to give a complete and coherent history, speaking in full scentences. Well-nourished well-developed HEENT: Moist mucous membranes, normal sclera with reactive pupils, multiple teeth missing. Neck: No JVD, supple Respiratory: Lungs are clear to auscultation, no wheezing no rales no rhonchi. Full and symmetrical air movement Chest: Tender along costochondral borders left greater than right which does reproduce her pain Cardiac: Regular rate and rhythm no murmurs no bruits Abdomen: Soft nontender good bowel tones, no flank pain Skin: Warm and dry, no rashes Neurologic: Grossly neurologically intact with no obvious asymmetries or abnormalities Extremities: No trauma, well perfused Psych: Cooperative, appropriate insight and affect Initial Vital Signs Initial Vital Signs: Vital Signs Temperature 98.0 F 04/10/20 18:38 Pulse Rate 92 H 04/10/20 18:38 Respiratory Rate 23 04/10/20 18:38 Blood Pressure 115/57 L 04/10/20 18:38 Pulse Oximetry 98 04/10/20 18:38 Course Orders Ordered: ED Orders 04/10/20 18:44 XR chest 1V Stat EKG-12 Lead Stat 04/10/20 18:49 Complete Blood Count AUTO DIFF Stat Comprehensive Metabolic Panel Stat Lipase Stat Partial Thromboplastin Time Stat Prothrombin Time INR Stat Troponin & CK Cardiac Panel Stat 04/10/20 21:01 Troponin I Stat Discontinued Medications Aspirin (Aspirin Chew) 324 mg PO NOW ONE Stop: 04/10/20 19:17 Last Admin: 04/10/20 19:25 Dose: 324 mg Documented by: JAYME Sodium Chloride (Normal Saline 0.9%) 1,000 mls @ 1,000 mls/hr IV BOLUS ONE Stop: 04/10/20 20:18 Last Infusion: 04/10/20 20:30 Dose: 0 mls/hr Documented by: Admin: 04/10/20 19:26 Dose: 1,000 mls/hr Documented by: JAYME Ketorolac Tromethamine (Toradol) 15 mg IV NOW ONE Stop: 04/10/20 19:17 Last Admin: 04/10/20 19:26 Dose: 15 mg Documented by: JAYME Vital Signs Vital signs: Vital Signs - 8 hr 04/10/20 18:38 04/10/20 18:40 04/10/20 19:00 Temperature 98.0 F Pulse Rate 92 H 101 H 92 H Respiratory Rate 23 30 H Blood Pressure 115/57 L 115/57 L 106/69 Pulse Oximetry 98 98 100 04/10/20 19:30 04/10/20 20:00 04/10/20 20:30 Temperature Pulse Rate 79 77 75 Respiratory Rate 20 20 26 H Blood Pressure 113/62 114/63 Pulse Oximetry 97 98 97 04/10/20 21:00 04/10/20 21:30 04/10/20 21:31 Temperature Pulse Rate 72 83 85 Respiratory Rate 23 42 H 27 H Blood Pressure Pulse Oximetry 98 98 97 04/10/20 21:32 Temperature Pulse Rate 81 Respiratory Rate 14 Blood Pressure 122/76 Pulse Oximetry 98 MDM - Chest Pain Lab Data Result diagrams: 04/10/20 18:49 04/10/20 18:49 Labs: Lab Results 04/10/20 04/10/20 04/10/20 Range/Units 18:49 18:49 18:49 WBC 11.0 (4.5-11.0) X10^3/uL RBC 4.41 (4.0-5.2) X10^6/uL Hgb 14.4 (12.0-16.0) g/dL Hct 39.7 (36-46) % MCV 90.0 (80-100) fL MCH 32.7 (26-34) PG MCHC 36.3 H (30-36) % RDW 13.6 (11.6-14.8) % Plt Count 289 (150-400) X10^3/uL Neut % (Auto) 59.8 (50-75) % Lymph % (Auto) 29.7 (25-40) % [place] % (Auto) 6.2 (3-14) % Eos % (Auto) 3.9 (2-4) % Baso % (Auto) 0.4 (0-2) % Neut # (Auto) 6600 (9200-7732) /uL Lymph # (Auto) 3300 (1779-6819) /uL [place] # (Auto) 700 (0-900) /uL Eos # (Auto) 400 (0-450) /uL Baso # (Auto) 0 (0-100) /uL PT 11.1 (10.1-12.7) SECONDS INR 1.0 (0.9-1.3) APTT 31 (26.4-36.2) SECONDS Sodium 138 (137-145) mmol/L Potassium 4.4 (3.4-5.1) mmol/L Chloride 106 (98-107) mmol/L Carbon Dioxide 20 L (22-32) mmol/L BUN 29 H (7-17) mg/dL Creatinine 1.56 H (0.52-1.04) mg/dL Estimated GFR 35.0 L (>60) mL/min BUN/Creatinine Ratio 18.6 (6-22) Glucose 300 H (70-100) mg/dL Calcium 10.0 (8.4-10.2) mg/dL Total Bilirubin 1.0 (0.2-1.3) mg/dL AST 25 (14-36) IU/L ALT 18 (<35) IU/L Alkaline Phosphatase 151 H (38-126) U/L Total Creatine Kinase 80 (30-135) U/L CK-MB (CK-2) TNP CK-MB (CK-2) Rel Index TNP Troponin I < 0.012 (0.01-0.034) ng/mL Total Protein 8.5 H (6.3-8.2) g/dL Albumin 4.5 (3.5-5.0) g/dL Globulin 4.0 (1.7-4.1) g/dL Albumin/Globulin Ratio 1.1 (1.0-2.8) Lipase 134 (23-300) U/L // Range/Units 21:01 WBC (4.5-11.0) X10^3/uL RBC (4.0-5.2) X10^6/uL Hgb (12.0-16.0) g/dL Hct (36-46) % MCV (80-100) fL MCH (26-34) PG MCHC (30-36) % RDW (11.6-14.8) % Plt Count (150-400) X10^3/uL Neut % (Auto) (50-75) % Lymph % (Auto) (25-40) % [place] % (Auto) (3-14) % Eos % (Auto) (2-4) % Baso % (Auto) (0-2) % Neut # (Auto) (4220-6464) /uL Lymph # (Auto) (8600-6546) /uL [place] # (Auto) (0-900) /uL Eos # (Auto) (0-450) /uL Baso # (Auto) (0-100) /uL PT (10.1-12.7) SECONDS INR (0.9-1.3) APTT (26.4-36.2) SECONDS Sodium (137-145) mmol/L Potassium (3.4-5.1) mmol/L Chloride (98-107) mmol/L Carbon Dioxide (22-32) mmol/L BUN (7-17) mg/dL Creatinine (0.52-1.04) mg/dL Estimated GFR (>60) mL/min BUN/Creatinine Ratio (6-22) Glucose (70-100) mg/dL Calcium (8.4-10.2) mg/dL Total Bilirubin (0.2-1.3) mg/dL AST (14-36) IU/L ALT (<35) IU/L Alkaline Phosphatase (38-126) U/L Total Creatine Kinase (30-135) U/L CK-MB (CK-2) CK-MB (CK-2) Rel Index Troponin I < 0.012 (0.01-0.034) ng/mL Total Protein (6.3-8.2) g/dL Albumin (3.5-5.0) g/dL Globulin (1.7-4.1) g/dL Albumin/Globulin Ratio (1.0-2.8) Lipase (23-300) U/L ECG Data Attestation: I personally reviewed and interpreted this ECG as follows: Interpretation: Normal sinus rhythm at a rate of 88 Normal axis, normal intervals No acute ischemic changes MDM Narrative Medical decision making narrative: 50-year-old diabetic woman presents with chest pain significantly worsening this evening. Completely resolved after Toradol. Labs are reassuring initial troponin and repeat troponin are both unremarkable as is EKG chest x-ray does not suggest acute findings, no infection, no pneumothorax. Very low risk for pulmonary embolism. Most likely explanation at this point is musculoskeletal chest pain. She is safe for home discharge Discharge Plan Departure Patient Disposition: Home Clinical Impression: Atypical chest pain Instructions: DI for Atypical Chest Pain Activity Restrictions/Additional Instructions: Thank you for coming in today I think your chest pain was concerning enough that an emergency room evaluation was very appropriate. Fortunately I did not find any life-threatening diagnoses today. Specifically there is no evidence of a heart attack, heart attack like syndrome, blood clots in her lungs, collapsed lung, pneumonia or other infections. I suspect that your pain is musculoskeletal in nature which is why the IV Toradol that you received was so helpful in completely alleviating the pain. If you have recurrent pain over the next few days it is safe to use the Aleve that you currently have at home. Your kidney function was slightly off today. I suspect that your recent camping trip in the 120 degree weather has caused a bit of dehydration. Please make sure that you are drinking plenty of fluids over these next couple of days. Please follow-up with your primary care physician in the near future. Retesting your kidney function when you are feeling well would be appropriate. If you have recurrent chest pain particularly if it is associated with sweating, shortness of breath or worse with exercise or activity, you need to return to the emergency department. I hope you feel better Prescriptions: No Action clotrimazole 1 % cream See Rx Instructions Topical BID Qty: 30 RF: 1 lancet See Rx Instructions .ROUTE .COMPLEX Qty: 100 RF: 2 glucometer kit See Rx Instructions .ROUTE .COMPLEX Qty: 1 RF: 0 glucometer home kit See Rx Instructions .ROUTE .COMPLEX Qty: 1 RF: 0 (DME) [place] 5/16 Inch 0 .Route .MEDSUPPLY Qty: 1 RF: 5 pravastatin 80 mg tablet 80 mg PO BEDTIME Qty: 90 RF: 0 omeprazole 40 mg capsule,delayed release(DR/EC) 40 mg PO DAILY Qty: 90 RF: 0 lisinopril 20 mg tablet 20 mg PO DAILY Qty: 90 RF: 0 Lantus U-100 Insulin 100 unit/mL solution 30 unit SUBCUT DAILY 90 Days Qty: 10 RF: 3 (DME) Syringes: 1cc Insulin Syringes with [place] See Rx Instructions .Route .MEDSUPPLY Qty: 100 RF: 0 metformin 1,000 mg tablet 1,000 mg PO BIDCC Qty: 180 RF: 0 albuterol sulfate [Ventolin HFA] 90 mcg/actuation HFA aerosol inhaler 2 puff Inhalation SEE INSTRUCTIONS PRN (Reason: shortness of breath or wheezing) Qty: 1 RF: 2 test strips See Rx Instructions .ROUTE .COMPLEX Qty: 100 RF: 2 (DME) lancets Misc See Rx Instructions .ROUTE .MEDSUPPLY Qty: 50 RF: 11 hydrochlorothiazide 25 mg tablet 12.5 mg PO DAILY Qty: 45 RF: 1 Referrals: Harmony Trujillo DO [Primary Care Provider] -
[2020-04-10 18:56] LABS: Add Manual Diff / Slide Review NO; Basophils Absolute Auto 0 /uL (0-100); Basophils Percent Auto 0.4 % (0-2); Eosinophils Absolute Auto 400 /uL (0-450); Eosinophils Percent Auto 3.9 % (2-4); Hematocrit 39.7 % (36-46); Hemoglobin 14.4 g/dL (12.0-16.0); Lymphocytes Absolute Auto 3300 /uL (1100-4500); Lymphocytes Percent Auto 29.7 % (25-40); Mean Corpuscular HGB Conc 36.3 % (30-36); Mean Corpuscular Hemoglobin 32.7 PG (26-34); Monocytes Absolute Auto 700 /uL (0-900); Monocytes Percent Auto 6.2 % (3-14); Neutrophils Absolute Auto 6600 /uL (1500-7000); Neutrophils Percent Auto 59.8 % (50-75); Platelet Count 289 X10^3/uL (150-400); Red Blood Cell Count 4.41 X10^6/uL (4.0-5.2); Red Cell Distribution Width 13.6 % (11.6-14.8)
[2020-04-10 19:05] LABS: Prothrombin Time 11.1 SECONDS (10.1-12.7)
[2020-04-10 19:07] LABS: PTT Partial Thromboplastin Tim 31 SECONDS (26.4-36.2)
[2020-04-10 19:09] LABS: Alanine Aminotransferase 18 IU/L (<35); Albumin 4.5 g/dL (3.5-5.0); Albumin Globulin Ratio 1.1 (1.0-2.8); Alkaline Phosphatase 151 U/L (38-126); Aspartate Aminotransferase 25 IU/L (14-36); BUN Creatinine Ratio 18.6 (6-22); Blood Urea Nitrogen 29 mg/dL (7-17); Carbon Dioxide 20 mmol/L (22-32); Chloride 106 mmol/L (98-107); Creatine Kinase 80 U/L (30-135); Glucose 300 mg/dL (70-100); HEMOLYSIS 42 (0-50); Lipase 134 U/L (23-300); Potassium 4.4 mmol/L (3.4-5.1); Sodium 138 mmol/L (137-145); Total Protein 8.5 g/dL (6.3-8.2)
[2020-04-10 19:21] LABS: Troponin I < 0.012 ng/mL (0.01-0.034)
[2020-04-10] MEDS: ASPIRIN 81 MG CHEW TAB 324 MG PO (19:25)
[2020-04-10] MEDS: SODIUM CHLORIDE 0.9% 1,000 ML 1000 ML IV (19:26)
[2020-04-10] MEDS: KETOROLAC 60 MG/2 ML VIAL 15 MG IV (19:26)
[2020-04-10 21:30] LABS: Troponin I < 0.012 ng/mL (0.01-0.034)
== END 2020-04-10 22:46 | disposition home or self-care (01) ==
PROVIDERS: Emergency Provider Emergency Medicine; PCP Family Medicine
DX: R07.89 Other chest pain (principal); R06.00 Dyspnea, unspecified; F41.9 Anxiety disorder, unspecified; E11.9 Type 2 diabetes mellitus without complications; E78.5 Hyperlipidemia, unspecified; I10 Essential (primary) hypertension; J44.9 Chronic obstructive pulmonary disease, unspecified
CPT/HCPCS: 36415; 71045; 80053; 82550; 83690; 84484; 85025; 85610; 85730; 93005; 96361; 96374; 99284; 99285; J1885

== ENCOUNTER → 2020-06-08 11:14 | Outpatient (CLI) | payer OTHER, SELFPAY ==
[2019-12-21 01:46] VITALS: BMI 30.7
[2020-06-08 11:56] LABS: Hemoglobin A1C% w Est Avg Glu 7.8 % (4.0-6.0)
[2020-06-08 12:10] LABS: Alanine Aminotransferase 15 IU/L (<35); Alkaline Phosphatase 121 U/L (38-126); Aspartate Aminotransferase 22 IU/L (14-36); BUN Creatinine Ratio 14.9 (6-22); Bilirubin Total 0.6 mg/dL (0.2-1.3); Blood Urea Nitrogen 11 mg/dL (7-17); Calcium 9.1 mg/dL (8.4-10.2); Carbon Dioxide 26 mmol/L (22-32); Chloride 107 mmol/L (98-107); Estimated Glomerular Filt Rate > 60.0 mL/min (>60); Globulin 3.9 g/dL (1.7-4.1); Glucose 144 mg/dL (70-100); HEMOLYSIS 17 (0-50); Potassium 3.9 mmol/L (3.4-5.1); Sodium 141 mmol/L (137-145); Total Protein 7.9 g/dL (6.3-8.2)
== END ==
PROVIDERS: PCP Family Medicine; Referring Provider Family Medicine; Visit Provider Family Medicine
DX: E11.9 Type 2 diabetes mellitus without complications (principal); Z79.4 Long term (current) use of insulin
CPT/HCPCS: 36415; 80053; 83036

== ENCOUNTER → 2020-07-28 14:00 | Outpatient (CLI) | payer OTHER, SELFPAY ==
[2019-12-21 01:46] VITALS: BMI 30.7
--- NOTE | 2020-07-28 14:01 | DI.RAD.S_ITS ---
PROCEDURE: XR WRIST RT MIN 3V INDICATIONS: r wrist pain TECHNIQUE: 4 views of the wrist were acquired. COMPARISON: None. FINDINGS: Bones: No fractures or dislocations. No suspicious bony lesions. Scaphoid view: Negative Soft tissues: No suspicious soft tissue calcifications. IMPRESSION: No acute fracture. No osseous lesion. If symptoms and/or clinical suspicion for pathology persist, further assessment with repeat, or advanced imaging (e.g., CT, MRI, or bone scan) may be helpful for further assessment. Dictated by: Nicanor Borges M.D. on 07/28/2020 at 14:12 Approved by: Nicanor Borges M.D. on 07/28/2020 at 14:12
== END ==
PROVIDERS: PCP Family Medicine; Referring Provider Physician Assistant; Visit Provider Physician Assistant
DX: M25.531 Pain in right wrist (principal)
CPT/HCPCS: 73110

== ENCOUNTER → 2020-11-23 08:31 | Outpatient (CLI) | payer OTHER, SELFPAY ==
[2019-12-21 01:46] VITALS: BMI 30.7
[2020-11-23 09:20] LABS: BUN Creatinine Ratio 23.2 (6-22); Blood Urea Nitrogen 13 mg/dL (7-17); Calcium 9.2 mg/dL (8.4-10.2); Carbon Dioxide 24 mmol/L (22-32); Chloride 108 mmol/L (98-107); Cholesterol 285 mg/dL (140-199); Estimated Glomerular Filt Rate > 60.0 mL/min (>60); Glucose 313 mg/dL (70-100); HDL Cholesterol 25 mg/dL (40-60); HEMOLYSIS < 15 (0-50); Potassium 3.7 mmol/L (3.4-5.1); Sodium 137 mmol/L (137-145)
[2020-11-23 09:28] LABS: Triglycerides 680 mg/dL (35-150)
[2020-11-26 11:27] LABS: LDL Cholesterol Direct 87 mg/dL (<100)
== END ==
PROVIDERS: PCP Family Medicine; Referring Provider Family Medicine; Visit Provider Family Medicine
DX: N18.30 Chronic kidney disease, stage 3 unspecified (principal); E08.65 Diabetes mellitus due to underlying condition with hyperglycemia; Z79.4 Long term (current) use of insulin; E78.5 Hyperlipidemia, unspecified; E66.9 Obesity, unspecified; I10 Essential (primary) hypertension; E78.2 Mixed hyperlipidemia; R89.9 Unspecified abnormal finding in specimens from other organs, systems and tissues
CPT/HCPCS: 36415; 80048; 80061; 83036; 83721

== ENCOUNTER → 2020-11-30 18:38 | Outpatient (CLI) | payer OTHER, SELFPAY ==
[2019-12-21 01:46] VITALS: BMI 30.7
== END ==
PROVIDERS: PCP Family Medicine; Visit Provider Physician Assistant
DX: L97.529 Non-pressure chronic ulcer of other part of left foot with unspecified severity (principal)
CPT/HCPCS: 87070; 87075; 87077; 87147; 87205

== ENCOUNTER → 2021-07-17 12:17 | Outpatient (CLI) | payer OTHER, SELFPAY ==
[2019-12-21 01:46] VITALS: BMI 30.7
[2021-07-17 13:57] LABS: COVID19 -Nasal RAPID Negative (Negative)
== END ==
PROVIDERS: PCP Family Medicine; Visit Provider Nurse Practitioner Family
DX: Z20.822 Contact with and (suspected) exposure to COVID-19 (principal)
CPT/HCPCS: 87635

== ENCOUNTER → 2021-09-30 14:22 | Outpatient (CLI) | payer OTHER, SELFPAY ==
[2019-12-21 01:46] VITALS: BMI 30.7
[2021-09-30 15:25] LABS: COVID19 -Nasal RAPID Negative (Negative)
== END ==
PROVIDERS: PCP Family Medicine; Referring Provider Nurse Practitioner Family; Visit Provider Nurse Practitioner Family
DX: Z20.822 Contact with and (suspected) exposure to COVID-19 (principal)
CPT/HCPCS: 87635

== ENCOUNTER 2022-01-22 10:57 | Emergency (ER) | payer SELFPAY ==
[2019-12-21 01:46] VITALS: BMI 30.7
[2022-01-22] VITALS (8 sets, daily range): BP systolic 97–107; BP diastolic 55–62; PULSE 53–68; RESP 26–49; TEMP 37; O2SAT 98–100
--- NOTE | 2022-01-22 11:13 | DI.RAD.S_ITS ---
PROCEDURE: XR CHEST 1V INDICATIONS: short of breath TECHNIQUE: One view of the chest was acquired. COMPARISON: [facility], CR, XR CHEST 1V, 04/10/2020, 18:57. FINDINGS: Surgical changes and devices: None. Lungs and pleura: Lungs are clear. No pleural effusions or pneumothorax. Mediastinum: Mediastinal contours appear normal. Heart size is normal. Bones and chest wall: No suspicious bony lesions. Overlying soft tissues appear unremarkable. IMPRESSION: No acute cardiopulmonary findings. Dictated by: Teresa Love M.D. on 01/22/2022 at 11:32 Approved by: Teresa Love M.D. on 01/22/2022 at 11:33
[2022-01-22 11:22] LABS: Add Manual Diff / Slide Review NO; Basophils Absolute Auto 200 /uL (0-100); Basophils Percent Auto 1.3 % (0-2); Eosinophils Absolute Auto 0 /uL (0-450); Eosinophils Percent Auto 0.1 % (2-4); Hematocrit 39.9 % (36-46); Hemoglobin 13.4 g/dL (12.0-16.0); Lymphocytes Absolute Auto 1900 /uL (1100-4500); Lymphocytes Percent Auto 12.1 % (25-40); Mean Corpuscular HGB Conc 33.5 % (30-36); Mean Corpuscular Volume 89.5 fL (80-100); Monocytes Absolute Auto 1600 /uL (0-900); Monocytes Percent Auto 9.9 % (3-14); Neutrophils Absolute Auto 12200 /uL (1500-7000); Neutrophils Percent Auto 76.6 % (50-75); Platelet Count 247 X10^3/uL (150-400); Red Blood Cell Count 4.45 X10^6/uL (4.0-5.2); Red Cell Distribution Width 14.8 % (11.6-14.8); White Blood Cell Count 15.9 X10^3/uL (4.5-11.0)
[2022-01-22] MEDS: ASPIRIN 81 MG CHEW TAB 324 MG (11:22)
--- NOTE | 2022-01-22 11:24 | ED.CHESTPAIN ---
HPI - Chest Pain General Chief Complaint: Chest Pain Stated Complaint: Chest pain, limb weakness since diabetic episode Time Seen by Provider: 01/22/22 11:11 Mode of arrival: Wheelchair Limitations: no limitations History of Present Illness HPI narrative: Patient is a 51-year-old female with history of diabetes hyper lipidemia hypertension COPD current smoker presenting today with chest discomfort. She states that she had an episode on Thursday she did not quite feel well she has had increasing chest pain and shortness of breath. She is noted to be very uncomfortable in having tachypnea. there was concern for diabetic issue of glucose was 400. Related Data Previous Rx's Medication Instructions Recorded clotrimazole 1 % topical cream See Rx Instructions TOPICAL BID 08/12/18 #30 gram albuterol sulfate 90 mcg/actuation 2 puff INHALATION SEE INSTRUCTIONS 10/19/19 aerosol inhaler (Ventolin HFA) PRN #1 inh lancet See Rx Instructions .ROUTE 10/28/19 .COMPLEX #100 each glucometer kit See Rx Instructions .ROUTE 10/28/19 .COMPLEX #1 each glucometer home kit See Rx Instructions .ROUTE 11/01/19 .COMPLEX #1 each test strips See Rx Instructions .ROUTE 12/16/19 .COMPLEX #100 each [place] 5/16 Inch #1 each 12/21/19 lancets #50 each 12/28/19 triamcinolone acetonide 0.5 % 1 applictn TOP DAILY #15 gram 05/18/20 topical cream insulin syringe-needle U-100 1 mL See Rx Instructions .ROUTE 07/14/20 31 gauge x 5/16 (BD Insulin .COMPLEX #100 each Syringe Ultra-Fine) omeprazole 40 mg capsule,delayed See Rx Instructions .ROUTE 07/28/20 release .COMPLEX #90 cap atorvastatin 80 mg tablet 80 mg PO BEDTIME #90 tab 12/17/20 metformin 1,000 mg tablet 1,000 mg PO BIDCC #180 tab 12/17/20 insulin glargine 100 unit/mL (3 30 unit (0.3 mL) SUBCUT QPM #15 ml 05/02/21 mL) subcutaneous pen hydrochlorothiazide 25 mg tablet See Rx Instructions .ROUTE 05/06/21 .COMPLEX #45 tab cyclobenzaprine 5 mg tablet 5 mg PO TID PRN #14 tab 08/16/21 lisinopril 20 mg tablet See Rx Instructions .ROUTE 09/20/21 .COMPLEX #90 tab Allergies Allergy/AdvReac Type Severity Reaction Status Date / Time cephalexin [From KEFLEX] Allergy Unknown ITCHY Verified 09/30/21 14:33 naproxen Allergy Itchy hands Verified 09/30/21 14:33 azithromycin [AZITHROMYCIN] AdvReac Severe vomiting Verified 09/30/21 14:33 loratadine AdvReac Mild nausea Verified 09/30/21 14:33 Review of Systems Review of Systems Narrative: GENERAL: Denies chills, fatigue, malaise, fever, sweats, travel HEENT: Denies sinus pain, ear pain, sore throat, difficulty swallowing, neck pain RESPIRATORY: Denies dyspnea, cough, wheezing, hemoptysis, sputum. CARDIOVASCULAR: See HPI GASTROINTESTINAL: Denies nausea, vomiting, abdominal pain, diarrhea, constipation, melena. : Denies dysuria, frequency, incontinence, hematuria, urinary retention, flank pain. MUSCULOSKELETAL: Denies weakness, joint pain, or bony pain SKIN: No rash, no erythema, no pruritus NEUROLOGIC: Denies weakness, dizziness, headache, numbness, change in speech, confusion PSYCHIATRIC: No concerning psychosocial issues. 12 point review of systems is negative except for those stated above and HPI Patient History Medical History Allergic rhinitis Asthma Carpal tunnel syndrome of left wrist Continuous tobacco abuse COPD (chronic obstructive pulmonary disease) Dental infection Diabetes mellitus (08/20/11) Diabetes mellitus Edentulous GERD (gastroesophageal reflux disease) Gingivitis Hyperlipidemia Hypertension (08/20/11) Obesity (06/21/14) Pneumonia Pyelonephritis Sepsis Submandibular lymphadenopathy Tobacco use disorder (06/21/14) Urinary tract infection Surgical History Status post hysterectomy (~1996) Family History Father Mesothelioma Mother Dementia Epilepsy Sister Lung disease Other Family history non-contributory Social History household members: spouse Smoking Status: Current every day smoker alcohol intake: current Smoking Status: Current every day smoker alcohol intake frequency: 0-2 drinks per day Substance Use Type: does not use Exam Initial Vital Signs Initial Vital Signs: Vital Signs Pulse Rate 66 05/11/22 11:02 Respiratory Rate 46 H 01/22/22 11:02 Pulse Oximetry 98 01/22/22 11:02 GENERAL: 51-year-old female appears older than stated age appears in moderate distress HEENT: Head atraumatic,EOMI, pupils reactive, face symmetric, moist mucous membranes CARDIOVASCULAR: Regular rate and rhythm without murmurs, rubs or gallops. RESPIRATORY: Breath sounds equal bilaterally, no wheezes rales or rhonchi. ABDOMEN: Soft, nontender. Normoactive bowel sounds all 4 quadrants. No guarding or rebound. EXTREMITIES: Normal range of motion, no clubbing or edema. Neurovascularly intact NEUROLOGICAL: Alert and oriented x4.Normal gait and speech. SKIN: Warm, dry, no laceration, no petechiae, no rashes or lesions. Course Orders Ordered: ED Orders 01/22/22 11:10 Complete Blood Count AUTO DIFF Stat Comprehensive Metabolic Panel Stat Ketones (Beta-Hydroxybutyrate) Stat Lactate (Lactic Acid) Stat Lipase Stat NT-proBNP (BNP-Adult 18+) Stat PT [Prothrombin Time INR] Stat PTT [Partial Thromboplastin Time] Stat Procalcitonin Stat Troponin & CK Cardiac Panel Stat 01/22/22 11:13 XR chest 1V Stat VBG [Venous Blood Gas] Stat 01/22/22 11:28 COVID19 -Nasal RAPID/Pre-Proc Stat Discontinued Medications Heparin Sodium (Porcine) (Heparin 5,000 Unit/Ml Vial) 4,000 unit IV NOW ONE Stop: 01/22/22 11:33 Last Admin: 01/22/22 11:36 Dose: 4,000 unit Documented by: MARLEN Sodium Chloride (Normal Saline 0.9%) 1,000 mls @ 1,000 mls/hr IV BOLUS ONE Stop: 01/22/22 12:30 Last Admin: 01/22/22 11:48 Dose: Not Given Documented by: MARLEN Heparin Sodium/Dextrose (Heparin Drip) 25,000 unit in 500 mls @ 15.785 mls/hr IV CONT KIRSTEN; Protocol Last Titration: 01/22/22 11:45 Dose: 0 units/kg/hr, 0 mls/hr Documented by: Admin: 01/22/22 11:37 Dose: 12 units/kg/hr, 15.785 mls/hr Documented by: MARLEN Sodium Chloride (Normal Saline 0.9%) 1,000 mls @ 1,000 mls/hr IV BOLUS ONE Stop: 01/22/22 12:31 Last Infusion: 01/22/22 11:45 Dose: 0 mls/hr Documented by: Admin: 01/22/22 11:35 Dose: 1,000 mls/hr Documented by: MARLEN Nitroglycerin (Nitroglycerin 0.4 Mg Sl Tab) 0.4 mg SL [id number] PRN PRN Reason: Chest Pain Nitroglycerin (Nitroglycerin 0.4 Mg Sl Tab) 0.4 mg SL NOW ONE Stop: 01/22/22 11:33 Last Admin: 01/22/22 11:36 Dose: 0.4 mg Documented by: MARLEN Vital Signs Vital signs: Vital Signs - 8 hr 01/22/22 11:02 01/22/22 11:03 01/22/22 11:05 Temperature Pulse Rate 66 68 53 L Respiratory Rate 46 H 46 H 44 H Blood Pressure 100/55 L 99/55 L Pulse Oximetry 98 98 98 01/22/22 11:15 Temperature 98.6 F Pulse Rate 55 L Respiratory Rate 26 H Blood Pressure 99/55 L Pulse Oximetry 100 MDM - Chest Pain Lab Data Result diagrams: 01/22/22 11:10 01/22/22 11:10 Labs: Lab Results 01/22/22 01/22/22 01/22/22 Range/Units 11:10 11:10 11:10 WBC 15.9 H (4.5-11.0) X10^3/uL RBC 4.45 (4.0-5.2) X10^6/uL Hgb 13.4 (12.0-16.0) g/dL Hct 39.9 (36-46) % MCV 89.5 (80-100) fL MCH 30.0 (26-34) PG MCHC 33.5 (30-36) % RDW 14.8 (11.6-14.8) % Plt Count 247 (150-400) X10^3/uL Neut % (Auto) 76.6 H (50-75) % Lymph % (Auto) 12.1 L (25-40) % [place] % (Auto) 9.9 (3-14) % Eos % (Auto) 0.1 L (2-4) % Baso % (Auto) 1.3 (0-2) % Neut # (Auto) 59121 H (5734-8374) /uL Lymph # (Auto) 1900 (0166-5164) /uL [place] # (Auto) 1600 H (0-900) /uL Eos # (Auto) 0 (0-450) /uL Baso # (Auto) 200 H (0-100) /uL PT (10.1-12.7) SECONDS INR (0.9-1.3) APTT (26.4-36.2) SECONDS VBG pH (7.33-7.43) VBG pCO2 (45-50) mmHg VBG pO2 (35-45) mmHg VBG HCO3 (23-28) mmol/L VBG Total CO2 (24-29) mmol/L VBG O2 Saturation (70-75) % VBG Base Excess (0-4) mmol/L Sodium 133 L (137-145) mmol/L Potassium 4.2 (3.4-5.1) mmol/L Chloride 101 (98-107) mmol/L Carbon Dioxide 20 L (22-32) mmol/L BUN 21 H (7-17) mg/dL Creatinine 0.76 (0.52-1.04) mg/dL Estimated GFR > 60 (>60) mL/min BUN/Creatinine Ratio 27.6 H (6-22) Glucose 449 H (70-100) mg/dL Lactate 2.7 H (0.7-2.1) mmol/L Calcium 9.0 (8.4-10.2) mg/dL Total Bilirubin 2.8 H (0.2-1.3) mg/dL AST 583 H (14-36) IU/L ALT 206 H (<35) IU/L Alkaline Phosphatase 231 H (38-126) U/L Total Creatine Kinase 1371 H (30-135) U/L CK-MB (CK-2) 40.00 H (<2.37) ng/mL CK-MB (CK-2) Rel Index 2.9 (1.5-5.0) % Troponin I 78.600 H* (0.01-0.034) ng/mL NT-Pro-B Natriuret Pep 3670 H (<125) pg/mL Total Protein 7.8 (6.3-8.2) g/dL Albumin 3.9 (3.5-5.0) g/dL Globulin 3.9 (1.7-4.1) g/dL Albumin/Globulin Ratio 1.0 (1.0-2.8) Lipase 110 (23-300) U/L Procalcitonin 0.23 (<0.5) ng/mL Ketones 2.06 H (<0.27) mmol/L SARS-CoV-2 (PCR) (Negative) 01/22/22 01/22/22 01/22/22 Range/Units 11:10 11:13 11:28 WBC (4.5-11.0) X10^3/uL RBC (4.0-5.2) X10^6/uL Hgb (12.0-16.0) g/dL Hct (36-46) % MCV (80-100) fL MCH (26-34) PG MCHC (30-36) % RDW (11.6-14.8) % Plt Count (150-400) X10^3/uL Neut % (Auto) (50-75) % Lymph % (Auto) (25-40) % [place] % (Auto) (3-14) % Eos % (Auto) (2-4) % Baso % (Auto) (0-2) % Neut # (Auto) (1320-9858) /uL Lymph # (Auto) (0517-5720) /uL [place] # (Auto) (0-900) /uL Eos # (Auto) (0-450) /uL Baso # (Auto) (0-100) /uL PT 12.7 (10.1-12.7) SECONDS INR 1.1 (0.9-1.3) APTT 30 (26.4-36.2) SECONDS VBG pH 7.43 (7.33-7.43) VBG pCO2 33.9 L (45-50) mmHg VBG pO2 36 (35-45) mmHg VBG HCO3 22 L (23-28) mmol/L VBG Total CO2 23 L (24-29) mmol/L VBG O2 Saturation 71 (70-75) % VBG Base Excess -2.0 L (0-4) mmol/L Sodium (137-145) mmol/L Potassium (3.4-5.1) mmol/L Chloride (98-107) mmol/L Carbon Dioxide (22-32) mmol/L BUN (7-17) mg/dL Creatinine (0.52-1.04) mg/dL Estimated GFR (>60) mL/min BUN/Creatinine Ratio (6-22) Glucose (70-100) mg/dL Lactate (0.7-2.1) mmol/L Calcium (8.4-10.2) mg/dL Total Bilirubin (0.2-1.3) mg/dL AST (14-36) IU/L ALT (<35) IU/L Alkaline Phosphatase (38-126) U/L Total Creatine Kinase (30-135) U/L CK-MB (CK-2) (<2.37) ng/mL CK-MB (CK-2) Rel Index (1.5-5.0) % Troponin I (0.01-0.034) ng/mL NT-Pro-B Natriuret Pep (<125) pg/mL Total Protein (6.3-8.2) g/dL Albumin (3.5-5.0) g/dL Globulin (1.7-4.1) g/dL Albumin/Globulin Ratio (1.0-2.8) Lipase (23-300) U/L Procalcitonin (<0.5) ng/mL Ketones (<0.27) mmol/L SARS-CoV-2 (PCR) Negative (Negative) Imaging Data Chest x-ray: Radiologist's Impression: XRay Report Signed Patient: Nilam Mcclain MR#: [id number] : 1970 Acct:[id number] Age/Sex: 51 / F Date of Service: 01/22/22 Loc: ED Accession Number: [id number] ?? Procedure: XR chest 1V Ordering Provider: Connie Ramirez D.O. PROCEDURE:? XR CHEST 1V ? INDICATIONS:? short of breath ? TECHNIQUE:? One view of the chest was acquired.? ? COMPARISON:? [facility], , XR CHEST 1V, 04/10/2020, 18:57. ? FINDINGS:? ? Surgical changes and devices:? None.? ? Lungs and pleura:? Lungs are clear.? No pleural effusions or pneumothorax.? ? Mediastinum:? Mediastinal contours appear normal.? Heart size is normal.? ? Bones and chest wall:? No suspicious bony lesions.? Overlying soft tissues appear unremarkable.? ? IMPRESSION:? No acute cardiopulmonary findings. ? ? Dictated by: Teresa Love M.D. on 01/22/2022 at 11:32 ? ? Approved by: Teresa Love M.D. on 01/22/2022 at 11:33 ? ECG Data Interpretation: ST-elevation inferior leads with ST depression in lateral leads, new from prior ekg MDM Narrative Medical decision making narrative: STEMI identified on EKG. No sign of acidosis. STEMI protocol immediately activated. Dr. Munoz ED physician at [facility] accepts patient. EKG intact. Dr. Peter cardiology has been contacted recommends talking to Interventional Cardiology. Critical Care Time Critical Care Time Attestation: The high probability of a clinically significant, sudden or life threatening deterioration of the [cardiovascular] system(s) required my full and direct attention, intervention and personal management. The aggregate critical care time was 30 minutes. This time is in addition to time spent performing reported procedures but includes the following: [x] Data Review and interpretation [x] Patient assessment and monitoring of vital signs [x] Documentation [x] Medication orders and management Discharge Plan Departure Patient Disposition: [facility] Clinical Impression: ST elevation (STEMI) myocardial infarction Prescriptions: No Action cyclobenzaprine 5 mg tablet 5 mg PO TID PRN (Reason: muscle spasm) Qty: 14 0RF clotrimazole 1 % cream See Rx Instructions Topical BID Qty: 30 1RF Dose Instruction: Apply 1gm topical twice a day Topical BID; Rx Instructions: Apply 1gm topical twice a day to affected area. lancet See Rx Instructions .ROUTE .COMPLEX Qty: 100 2RF Rx Instructions: use to test blood sugar 3 times a day: use for testing fasting blood sugar, blood sugar 2 hours after lunch and at bedtime ; glucometer kit See Rx Instructions .ROUTE .COMPLEX Qty: 1 0RF Rx Instructions: please use to test blood sugar 3 times daily ; glucometer home kit See Rx Instructions .ROUTE .COMPLEX Qty: 1 0RF Rx Instructions: please use to test blood sugar 3 times daily ; (DME) [place] 5/16 Inch 0 .Route .MEDSUPPLY Qty: 1 5RF Rx Instructions: As directed insulin syringe-needle U-100 [BD Insulin Syringe Ultra-Fine] 1 mL 31 gauge x 5/16 syringe See Rx Instructions .ROUTE .COMPLEX Qty: 100 3RF Dose Instruction: USE DIRECTED Rx Instructions: Use to inject insulin once daily. omeprazole 40 mg capsule,delayed release(DR/EC) See Rx Instructions .ROUTE .COMPLEX Qty: 90 0RF Dose Instruction: take 1 capsule by mouth once daily Rx Instructions: take 1 capsule by mouth once daily insulin glargine 100 unit/mL (3 mL) insulin pen 30 unit SUBCUT QPM Qty: 15 2RF hydrochlorothiazide 25 mg tablet See Rx Instructions .ROUTE .COMPLEX Qty: 45 2RF Dose Instruction: take 1/2 tablet by mouth once daily Rx Instructions: take 1/2 tablet by mouth once daily lisinopril 20 mg tablet See Rx Instructions .ROUTE .COMPLEX Qty: 90 0RF Dose Instruction: take 1 tablet by mouth once daily Rx Instructions: take 1 tablet by mouth once daily albuterol sulfate [Ventolin HFA] 90 mcg/actuation HFA aerosol inhaler 2 puff Inhalation SEE INSTRUCTIONS PRN (Reason: shortness of breath or wheezing) Qty: 1 2RF test strips See Rx Instructions .ROUTE .COMPLEX Qty: 100 2RF Rx Instructions: Please use to test blood sugar 3 times a day: fasting blood sugar, blood sugar 2 hours after lunch and at bedtime. (DME) lancets Misc See Rx Instructions .ROUTE .MEDSUPPLY Qty: 50 11RF Rx Instructions: As directed triamcinolone acetonide 0.5 % cream 1 applictn TOP DAILY Qty: 15 0RF Rx Instructions: apply to hands at bedtime and cover with vaseline. metformin 1,000 mg tablet 1,000 mg PO BIDCC Qty: 180 3RF atorvastatin 80 mg tablet 80 mg PO BEDTIME Qty: 90 1RF
[2022-01-22 11:27] LABS: HCO3 VBG 22 mmol/L (23-28); Oxygen Saturation VBG 71 % (70-75); PCO2 VBG 33.9 mmHg (45-50); PO2 VBG 36 mmHg (35-45); Total CO2 VBG 23 mmol/L (24-29); pH VBG 7.43 (7.33-7.43)
[2022-01-22] MEDS: SODIUM CHLORIDE 0.9% 1,000 ML 1000 ML IV (11:35)
[2022-01-22] MEDS: NITROGLYCERIN 0.4 MG SL TAB SL (11:36)
[2022-01-22] MEDS: HEPARIN 5,000 UNIT/ML VIAL 4000 UNIT IV (11:36)
[2022-01-22 11:37] LABS: Lactate (Lactic Acid) 2.7 mmol/L (0.7-2.1)
[2022-01-22] MEDS: HEPARIN DRIP 25,000 UNIT/500 ML IV.SOLN 15.785 UNIT IV (11:37)
[2022-01-22 11:38] LABS: Alanine Aminotransferase 206 IU/L (<35); Albumin 3.9 g/dL (3.5-5.0); Alkaline Phosphatase 231 U/L (38-126); Aspartate Aminotransferase 583 IU/L (14-36); BUN Creatinine Ratio 27.6 (6-22); Bilirubin Total 2.8 mg/dL (0.2-1.3); Blood Urea Nitrogen 21 mg/dL (7-17); Carbon Dioxide 20 mmol/L (22-32); Chloride 101 mmol/L (98-107); Creatine Kinase 1371 U/L (30-135); Estimated Glomerular Filt Rate > 60 mL/min (>60); Globulin 3.9 g/dL (1.7-4.1); Glucose 449 mg/dL (70-100); Lipase 110 U/L (23-300); Potassium 4.2 mmol/L (3.4-5.1); Sodium 133 mmol/L (137-145); Total Protein 7.8 g/dL (6.3-8.2)
[2022-01-22 11:50] LABS: NT-proBNP (BNP-Adult 18+) 3670 pg/mL (<125)
[2022-01-22 11:53] LABS: CKMB % Relative Index 2.9 % (1.5-5.0)
[2022-01-22 11:55] LABS: Procalcitonin 0.23 ng/mL (<0.5)
[2022-01-22 11:58] LABS: HEMOLYSIS 29 (0-50); Ketones (Beta-Hydroxybutyrate) 2.06 mmol/L (<0.27)
[2022-01-22 12:01] LABS: COVID19 -Nasal RAPID Negative (Negative)
--- NOTE | 2022-01-22 12:46 | PC.NURSE ---
Heparin drip and normal saline bolus continued with EMS upon transfer to [facility]. Discontinued in NOV per protocol.
[2022-01-22 12:48] LABS: INR 1.1 (0.9-1.3); Prothrombin Time 12.7 SECONDS (10.1-12.7)
[2022-01-22 12:51] LABS: PTT Partial Thromboplastin Tim 30 SECONDS (26.4-36.2)
[2022-01-22 13:18] LABS: Reflexed Lactate in 2 Hours Y
== END 2022-01-22 11:45 | disposition short-term general hospital (02) ==
PROVIDERS: Emergency Provider Emergency Medicine
DX: I21.3 ST elevation (STEMI) myocardial infarction of unspecified site (principal); R06.02 Shortness of breath; Z20.822 Contact with and (suspected) exposure to COVID-19
CPT/HCPCS: 36415; 71045; 80053; 82009; 82550; 82553; 82805; 83605; 83690; 83880; 84145; 84484; 85025; 85610; 85730; 87635; 93005; 96374; 99284; 99285; C9803; J1644

== ENCOUNTER → 2022-03-21 11:15 | Outpatient (CLI) | payer SELFPAY ==
[2019-12-21 01:46] VITALS: BMI 30.7
[2022-03-21 12:35] LABS: BUN Creatinine Ratio 19.2 (6-22); Blood Urea Nitrogen 15 mg/dL (7-17); Calcium 8.7 mg/dL (8.4-10.2); Carbon Dioxide 31 mmol/L (22-32); Chloride 105 mmol/L (98-107); Estimated Glomerular Filt Rate > 60 mL/min (>60); Glucose 142 mg/dL (70-100); HEMOLYSIS 21 (0-50); Potassium 3.7 mmol/L (3.4-5.1); Sodium 143 mmol/L (137-145)
== END ==
PROVIDERS: Referring Provider Nurse Practitioner Acute Care; Visit Provider Nurse Practitioner Acute Care
DX: I50.9 Heart failure, unspecified (principal); I25.5 Ischemic cardiomyopathy
CPT/HCPCS: 36415; 80048

== ENCOUNTER → 2022-06-24 09:51 | Outpatient (CLI) | payer OTHER, SELFPAY ==
[2019-12-21 01:46] VITALS: BMI 30.7
--- NOTE | 2022-06-24 | DI.RAD.S_ITS ---
PROCEDURE: XR LUMBAR SPINE 2-3V INDICATIONS: LOW BACK PAIN TECHNIQUE: 3 views of the lumbar spine were acquired. COMPARISON: [facility], CR, XR CHEST 2 VIEWS, 01/28/2022, 7:09. [facility], CR, L-SPINE 2-3 VIEWS, 09/19/2008, 10:59. FINDINGS: Bones: 5 [id number]-mbafbor vertebrae are present. There is normal bony alignment. No vertebral body compression fractures. No suspicious bony lesions. Disc space narrowing and hypertrophic facet joints noted in the lower lumbar spine at L4-5 and L5-S1, increased from the prior exam. Soft tissues: Atherosclerotic calcification in the aorta noted without aneurysm. Rounded eggshell calcification in the left upper lobe probably reflects splenic lesion, similar to the prior. Surgical clips present in the right upper quadrant. IMPRESSION: Mild degenerative disc disease and arthropathy in the lower lumbar spine, increased from the prior. Calcified splenic cyst, biventricular pacemaker/defibrillator, cholecystectomy Approved by: Galdino Bazzi M.D. on 06/24/2022 at 11:42
== END ==
PROVIDERS: Referring Provider Internal Medicine Cardiovascular Disease; Visit Provider Internal Medicine Cardiovascular Disease
DX: M51.36 Other intervertebral disc degeneration, lumbar region (principal); M47.816 Spondylosis without myelopathy or radiculopathy, lumbar region; D73.4 Cyst of spleen; M54.50 Low back pain, unspecified; Z95.810 Presence of automatic (implantable) cardiac defibrillator; Z90.49 Acquired absence of other specified parts of digestive tract
CPT/HCPCS: 72100

== ENCOUNTER 2022-11-03 18:57 | Emergency (ER) | payer OTHER, SELFPAY ==
[2019-12-21 01:46] VITALS: BMI 30.7
--- NOTE | 2022-11-03 19:21 | DI.RAD.S_ITS ---
PROCEDURE: XR CHEST 1V INDICATIONS: right anterior rib pain after fall TECHNIQUE: One view of the chest was acquired. COMPARISON: [facility], CT, CT KIDNEY URETER BLADDER (KUB), 09/21/2018, 15:30. [facility], CT, CT CERVICAL SPINE WO CON, 11/03/2022, 19:28. [facility], CR, XR CHEST 2 VIEWS, 01/28/2022, 7:09. [facility], CR, XR CHEST 1V, 01/22/2022, 11:13. [facility], CR, XR CHEST 1V, 04/10/2020, 18:57. FINDINGS: Surgical changes and devices: Pacemaking device/defibrillation device and dual chamber leads again noted.. Lungs and pleura: Lungs are abnormal, with a pulmonary edema pattern bilaterally, right greater than left. No left-sided pleural effusions or pneumothorax bilaterally, but there is a moderate sized pleural effusion on the right, also seen by CT scanning on CT cervical spine obtained earlier same day. Mediastinum: Mediastinal contours appear normal. Heart size is globally enlarged, moderately. Bones and chest wall: No suspicious bony lesions. Overlying soft tissues appear unremarkable. Faint peripheral rounded calcification noted superimposed on the upper left abdomen, also seen by CT scanning in September of 2018 within the spleen. IMPRESSION: Suspect acute CHF exacerbation superimposed on chronic CHF. Moderately large pleural effusion on the right. Cardiomegaly. Pacemaking/defibrillation device and leads appear stable over time. Dictated by: Cheikh Shirley M.D. on 11/03/2022 at 20:11 Approved by: Cheikh Shirley M.D. on 11/03/2022 at 20:15
--- NOTE | 2022-11-03 19:21 | DI.CT.S_ITS ---
PROCEDURE: CT CERVICAL SPINE WO CON INDICATIONS: fall TECHNIQUE: Noncontrast 3 mm thick sections acquired from the skull base to the T4 level. Sagittal and coronal reformats were then constructed. For radiation dose reduction, the following was used: automated exposure control, adjustment of mA and/or kV according to patient size. COMPARISON: [facility], CR, XR CHEST 2 VIEWS, 01/28/2022, 7:09. [facility], CR, XR CHEST 1V, 11/03/2022, 19:26. FINDINGS: Image quality: Excellent. Bones: No fractures or dislocations. Visualized superior ribs are intact. Soft tissues: Prevertebral soft tissues are normal in thickness. No paravertebral hematomas. No apical pneumothoraces. Note is made of a relatively large right pleural effusion seen also on chest plain film imaging same day. Pacemaking device over the upper left chest anteriorly. IMPRESSION: No trauma found. Moderately large right pleural effusion without definite trauma seen the upper lungs. Dictated by: Cheikh Shirley M.D. on 11/03/2022 at 20:04 Approved by: Cheikh Shirley M.D. on 11/03/2022 at 20:06
--- NOTE | 2022-11-03 19:21 | DI.CT.S_ITS ---
PROCEDURE: CT HEAD/BRAIN WO CON INDICATIONS: fall TECHNIQUE: Noncontrast 4.5 mm thick angled axial sections acquired from the foramen magnum to the vertex, with coronal and sagittal reformats. For radiation dose reduction, the following was used: automated exposure control, adjustment of mA and/or kV according to patient size. COMPARISON: None. FINDINGS: Image quality: Excellent. CSF spaces: Basal cisterns are patent. No extra-axial fluid collections. Ventricles are normal in size and shape. Brain: No midline shift. No intracranial masses or hemorrhage. Cabrera-white matter interface is normal. Skull and face: Calvarium and visualized facial bones are intact, without suspicious lesions. Sinuses: Visualized sinuses and mastoids are clear. IMPRESSION: No trauma found. Dictated by: Cheikh Shirley M.D. on 11/03/2022 at 20:01 Approved by: Cheikh Shirley M.D. on 11/03/2022 at 20:04
[2022-11-03 19:22] VITALS: BP 135/82; PULSE 78; RESP 17; TEMP 36.8; O2SAT 98
--- NOTE | 2022-11-03 19:22 | DI.RAD.S_ITS ---
PROCEDURE: XR SHOULDER RT MIN 2V INDICATIONS: fall TECHNIQUE: 3 views of the shoulder were acquired. COMPARISON: [facility], CR, XR SHOULDER RT MIN 2V, 02/09/2018, 14:24. FINDINGS: Bones: No fractures or dislocations. No suspicious bony lesions. Visualized ribs appear intact. Soft tissues: No suspicious soft tissue calcifications. 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 Note is made of partially visualized moderate right pleural effusion. This also has been seen by CT and chest plain film scanning today. Dictated by: Cheikh Shirley M.D. on 11/03/2022 at 20:15 Approved by: Cheikh Shirley M.D. on 11/03/2022 at 20:15
--- NOTE | 2022-11-03 19:30 | PC.NURSE ---
ecchymosis to right eyebrow
[2022-11-03 20:00] VITALS: BP 133/69; PULSE 83; O2SAT 92
[2022-11-03 20:30] VITALS: BP 141/76; PULSE 77; O2SAT 92
--- NOTE | 2022-11-03 20:43 | ED_ITS ---
HPI - Fall General Chief Complaint: Trauma Stated Complaint: fell/face/right arm injury Time Seen by Provider: 11/03/22 19:55 Source: patient Mode of arrival: Wheelchair History of Present Illness HPI Narrative: Patient here with , son drove off of them here tonight. Patient fell just prior to arrival. Patient was walking across the living room carpet, her slippers caught the carpet and she fell to the right side. Posting her right arm out to brace her fall. Hit the ground with her head. Has swelling to the right eyebrow. No loss of consciousness. Patient is on blood thinner. Complains of pain to the right forehead and right shoulder. Has known history arthritis in the right shoulder. Denies any other injuries. 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 #1 ea test strips See Rx Instructions .Route 12/16/19 .COMPLEX #100 ea Shelby 5/16 Inch #1 ea 12/21/19 lancets #50 ea 12/28/19 triamcinolone acetonide 0.5 % 1 applictn topical DAILY #15 grams 05/18/20 topical cream insulin syringe-needle U-100 1 mL See Rx Instructions .Route 07/14/20 31 gauge x 5/16 (BD Insulin .COMPLEX #100 ea Syringe Ultra-Fine) omeprazole 40 mg capsule,delayed See Rx Instructions .Route 07/28/20 release .COMPLEX #90 caps atorvastatin 80 mg tablet 80 mg PO BEDTIME #90 tabs 12/17/20 metformin 1,000 mg tablet 1,000 mg PO BIDCC #180 tabs 12/17/20 hydrochlorothiazide 25 mg tablet See Rx Instructions .Route 05/06/21 .COMPLEX #45 tabs cyclobenzaprine 5 mg tablet 5 mg PO TID PRN muscle spasm #14 08/16/21 tabs lisinopril 20 mg tablet See Rx Instructions .Route 09/20/21 .COMPLEX #90 tabs insulin glargine 100 unit/mL (3 30 unit (0.3 mL) SUBCUT QPM #15 mL 01/29/22 mL) subcutaneous pen Allergies Allergy/AdvReac Type Severity Reaction Status Date / Time cephalexin [From KEFLEX] Allergy Unknown ITCHY Verified 11/03/22 19:28 naproxen Allergy Itchy hands Verified 11/03/22 19:28 azithromycin [AZITHROMYCIN] AdvReac Severe vomiting Verified 11/03/22 19:28 loratadine AdvReac Mild nausea Verified 11/03/22 19:28 Review of Systems Review of Systems Narrative: GENERAL: negative chills, fatigue, malaise, fever, sweats. HEENT: negative sinus pain, ear pain, sore throat RESPIRATORY: negative dyspnea, cough CARDIOVASCULAR: negative chest pain, palpitations GASTROINTESTINAL: negative nausea, vomiting, abdominal pain : negative dysuria, frequency, hematuria MUSCULOSKELETAL: Positive muscle or bony pain SKIN: negative rash, skin lesions NEUROLOGIC: negative weakness, numbness ROS Unobtainable: All systems reviewed & are unremarkable except as noted in HPI and below Patient History Medical History Allergic rhinitis Asthma Carpal tunnel syndrome of left wrist Continuous tobacco abuse COPD (chronic obstructive pulmonary disease) Dental infection Diabetes mellitus (08/20/11) Diabetes mellitus Edentulous GERD (gastroesophageal reflux disease) Gingivitis Hyperlipidemia Hypertension (08/20/11) Obesity (06/21/14) Pneumonia Pyelonephritis Sepsis Submandibular lymphadenopathy Tobacco use disorder (06/21/14) Urinary tract infection Surgical History Status post hysterectomy (~1996) Family History Father Mesothelioma Mother Dementia Epilepsy Sister Lung disease Other Family history non-contributory Social History household members: spouse Smoking Status: Current every day smoker alcohol intake: current Smoking Status: Current every day smoker alcohol intake frequency: 0-2 drinks per day Substance Use Type: does not use Exam Narrative Exam Narrative: GENERAL: in no distress, not toxic not dyspneic HEAD: Normocephalic., there is bruising to the right eyebrow. No crepitus. Mild tenderness. No bleeding. Remaining face and skull nontender. Has chronic skin injury from picking of the skin from stress according to patient. EYES: Pupils equal round ENT: Mucous membranes moist. NECK: Trachea midline. No midline tenderness or step-off of the cervical spine. CARDIOVASCULAR: Regular rate and rhythm without murmurs RESPIRATORY: Clear to auscultation. Breath sounds equal bilaterally. No wheezes, rales, or rhonchi. GASTROINTESTINAL: Abdomen soft, non-tender EXTREMITIES: No gross deformities. Nontender bilateral pelvis hips and knees and ankles. Has chronic edema of the legs and feet. No bruising erythema overlying the right patella/knee. Able to bend but has chronic limited range of motion due to the edema. Examination right upper extremity nontender elbow wrist and hand. Limited range of motion of the right shoulder with no gross deformity or skin injury to the right shoulder, limited range of motion due to the pain of the right shoulder. BACK: No flank tenderness. NEURO: AOx4. SKIN: Warm and dry PSYCH: Not anxious, is cooperative Initial Vital Signs Initial Vital Signs: Vital Signs Temperature 98.2 F 11/03/22 19:22 Pulse Rate 78 11/03/22 19:22 Respiratory Rate 17 11/03/22 19:22 Blood Pressure 135/82 11/03/22 19:22 Pulse Oximetry 98 11/03/22 19:22 Oxygen Delivery Method 11/03/22 19:22 Course Orders Ordered: ED Orders 11/03/22 19:21 CT cervical spine wo con Stat CT head/brain wo con Stat Chest [XR chest 1V] Stat 11/03/22 19:22 XR shoulder RT min 2V Stat Discontinued Medications Hydrocodone Bitart/Acetaminophen (Hydrocodone/Acet 5/325 Tablet) 1 tab PO NOW ONE Stop: 11/03/22 20:44 Last Admin: 11/03/22 20:57 Dose: 1 tab Documented By: JOSEFA Vital Signs Vital signs: Vital Signs - 8 hr 11/03/22 19:22 11/03/22 20:00 11/03/22 20:00 Temperature 98.2 F Pulse Rate 78 83 Respiratory Rate 17 Blood Pressure 135/82 133/69 Pulse Oximetry 98 92 Oxygen Delivery Method Room Air 11/03/22 20:30 11/03/22 20:30 Temperature Pulse Rate 77 Respiratory Rate Blood Pressure 141/76 H Pulse Oximetry 92 Oxygen Delivery Method MDM - Fall Imaging Data CT scan - head: Radiologist's Impression: [address] [address] [address] Scan Report Signed Patient: Nilam Mcclain MR#: [id number] : 1970 Acct:[id number] Age/Sex: 52 / F Date of Service: 11/03/22 Loc: ED Accession Number: [id number] ?? Procedure: CT head/brain wo con Ordering Provider: Remigio Enriquez MD PROCEDURE:? CT HEAD/BRAIN WO CON ? INDICATIONS:? fall ? TECHNIQUE:? Noncontrast 4.5 mm thick angled axial sections acquired from the foramen magnum to the vertex, with coronal and sagittal reformats.? For radiation dose reduction, the following was used:? automated exposure control, adjustment of mA and/or kV according to patient size.? ? COMPARISON:? None. ? FINDINGS:? Image quality:? Excellent.? ? CSF spaces:? Basal cisterns are patent.? No extra-axial fluid collections.? Ventricles are normal in size and shape.? ? Brain:? No midline shift.? No intracranial masses or hemorrhage.? Cabrera-white matter interface is normal.? ? Skull and face:? Calvarium and visualized facial bones are intact, without suspicious lesions.? ? Sinuses:? Visualized sinuses and mastoids are clear.? ? IMPRESSION:? No trauma found. ? ? Dictated by: Cheikh Shirley M.D. on 11/03/2022 at 20:01 ? ? Approved by: Cheikh Shirley M.D. on 11/03/2022 at 20:04 ? CT - cervical spine: Radiologist's Impression: [address] [address] [address] Scan Report Signed Patient: Nilam Mcclain MR#: [id number] : 1970 Acct:[id number] Age/Sex: 52 / F Date of Service: 11/03/22 Loc: ED Accession Number: [id number] ?? Procedure: CT cervical spine wo con Ordering Provider: Remigio Enriquez MD PROCEDURE:? CT CERVICAL SPINE WO CON ? INDICATIONS:? fall ? TECHNIQUE:? Noncontrast 3 mm thick sections acquired from the skull base to the T4 level.? Sagittal and coronal reformats were then constructed.? For radiation dose reduction, the following was used:? automated exposure control, adjustment of mA and/or kV according to patient size.? ? COMPARISON:? [facility], CR, XR CHEST 2 VIEWS, 01/28/2022, 7:09.? [facility], CR, XR CHEST 1V, 11/03/2022, 19:26. ? FINDINGS:? Image quality:? Excellent.? ? Bones:? No fractures or dislocations.? Visualized superior ribs are intact.? ? Soft tissues:? Prevertebral soft tissues are normal in thickness.? No paravertebral hematomas.? No apical pneumothoraces.? Note is made of a relatively large right pleural effusion seen also on chest plain film imaging same day.? Pacemaking device over the upper left chest anteriorly. ? ? IMPRESSION:? No trauma found.? Moderately large right pleural effusion without definite trauma seen the upper lungs. ? ? Dictated by: Cheikh Shirley M.D. on 11/03/2022 at 20:04 ? ? Approved by: Cheikh Shirley M.D. on 11/03/2022 at 20:06 ? Chest x-ray: Radiologist's Impression: [place] [address] XRay Report Signed Patient: Nilam Mcclain MR#: [id number] : 1970 Acct:[id number] Age/Sex: 52 / F Date of Service: 11/03/22 Loc: ED Accession Number: [id number] ?? Procedure: XR chest 1V Ordering Provider: Remigio Enriquez MD PROCEDURE:? XR CHEST 1V ? INDICATIONS:? right anterior rib pain after fall ? TECHNIQUE:? One view of the chest was acquired.? ? COMPARISON:? [facility], CT, CT KIDNEY URETER BLADDER (KUB), 09/21/2018, 15:30.? [facility], CT, CT CERVICAL SPINE WO CON, 11/03/2022, 19:28.? [facility], CR, XR CHEST 2 VIEWS, 01/28/2022, 7:09.? [facility], CR, XR CHEST 1V, 01/22/2022, 11:13.? [facility], CR, XR CHEST 1V, 04/10/2020, 18:57. ? FINDINGS:? ? Surgical changes and devices:? Pacemaking device/defibrillation device and dual chamber leads again noted..? ? Lungs and pleura:? Lungs are abnormal, with a pulmonary edema pattern bilaterally, right greater than left.? No left-sided pleural effusions or pneumothorax bilaterally, but there is a moderate sized pleural effusion on the right, also seen by CT scanning on CT cervical spine obtained earlier same day.? ? Mediastinum:? Mediastinal contours appear normal.? Heart size is globally enlarged, moderately.? ? Bones and chest wall:? No suspicious bony lesions.? Overlying soft tissues appear unremarkable.? Faint peripheral rounded calcification noted superimposed on the upper left abdomen, also seen by CT scanning in September of 2018 within the spleen. ? IMPRESSION:? Suspect acute CHF exacerbation superimposed on chronic CHF.? Moderately large pleural effusion on the right.? Cardiomegaly.? Pacemaking/defibrillation device and leads appear stable over time. ? ? Dictated by: Cheikh Shirley M.D. on 11/03/2022 at 20:11 ? ? Approved by: Cheikh Shirley M.D. on 11/03/2022 at 20:15 ? Extremity x-ray #1: Radiologist's Impression: [place] [address] XRay Report Signed Patient: Nilam Mcclain MR#: [id number] : 1970 Acct:[id number] Age/Sex: 52 / F Date of Service: 11/03/22 Loc: ED Accession Number: [id number] ?? Procedure: XR shoulder RT min 2V Ordering Provider: Remigio Enriquez MD PROCEDURE:? XR SHOULDER RT MIN 2V ? INDICATIONS:? fall ? TECHNIQUE:? 3 views of the shoulder were acquired.? ? COMPARISON:? [facility], CR, XR SHOULDER RT MIN 2V, 02/09/2018, 14:24. ? FINDINGS:? ? Bones:? No fractures or dislocations.? No suspicious bony lesions.? Visualized ribs appear intact.? ? Soft tissues:? No suspicious soft tissue calcifications.? ? IMPRESSION:? Moderate osteoarthritis at the AC joint, no acute trauma found.? Note is made of partially visualized moderate right pleural effusion.? This also has been seen by CT and chest plain film scanning today. ? ? Dictated by: Cheikh Shirley M.D. on 11/03/2022 at 20:15 ? ? Approved by: Cheikh Shirley M.D. on 11/03/2022 at 20:15 ? [facility] Narrative Medical decision making narrative: Patient here with , son drove off of them here tonight. Patient fell just prior to arrival. Patient was walking across the living room carpet, her slippers caught the carpet and she fell to the right side. Posting her right arm out to brace her fall. Hit the ground with her head. Has swelling to the right eyebrow. No loss of consciousness. Patient is on blood thinner. Complains of pain to the right forehead and right shoulder. Has known history arthritis in the right shoulder. Denies any other injuries. After history and exam MDM CC: Right face and right shoulder pain Complicating co-morbidities: Patient on blood thinner Data collected from: Patient and Medical records reviewed: No recent fall or injury visits your Differential considered: Includes but not limited to head injury contusion intracranial bleed cervical strain/sprain/fracture/right shoulder fractures strain sprain Exam documented above, pertinent findings include: Hematoma right eyebrow, tender right shoulder Imaging studies independently reviewed: CT head CT cervical spine no acute process. Chest x-ray no acute injury. X-ray right shoulder no fracture dislocation but does have osteoarthritis Treatments: Hydrocodone Re-evaluations: Reviewed imaging with patient and . Return precautions reviewed with him. They do desire discharge home. Pain control at time of discharge. Discussion: Appropriate for discharge home. Pain medication given here for pain control 1 time dose appropriate. Ice pack given as well. Return precautions reviewed with them. Imaging and exam otherwise reassuring. They desire discharge home Diagnosis: Forehead contusion/shoulder sprain Discharge Plan Departure Patient Disposition: Home Clinical Impression: Contusion of forehead, Sprain of right shoulder Instructions: DI for Contusion, DI for Cervical Muscle Strain, DI for Shoulder Sprain Activity Restrictions/Additional Instructions: No driving operating machinery tonight. Use provided cool pack 20 minutes at a time as needed for pain and swelling. May continue home Tylenol for pain. Return if worse if any questions or concerns. See family doctor this week for re-evaluation. Prescriptions: No Action cyclobenzaprine 5 mg tablet 5 mg PO TID PRN (Reason: muscle spasm) Qty: 14 0RF clotrimazole 1 % cream See Rx Instructions Topical BID Qty: 30 1RF Dose Instruction: Apply 1gm topical twice a day Topical BID; Rx Instructions: Apply 1gm topical twice a day to affected area. lancet See Rx Instructions .ROUTE .COMPLEX Qty: 100 2RF Rx Instructions: use to test blood sugar 3 times a day: use for testing fasting blood sugar, blood sugar 2 hours after lunch and at bedtime ; glucometer kit See Rx Instructions .ROUTE .COMPLEX Qty: 1 0RF Rx Instructions: please use to test blood sugar 3 times daily ; glucometer home kit See Rx Instructions .ROUTE .COMPLEX Qty: 1 0RF Rx Instructions: please use to test blood sugar 3 times daily ; (DME) Shelby 5/16 Inch 0 .Route .MEDSUPPLY Qty: 1 5RF Rx Instructions: As directed insulin syringe-needle U-100 [BD Insulin Syringe Ultra-Fine] 1 mL 31 gauge x 5/16 syringe See Rx Instructions .ROUTE .COMPLEX Qty: 100 3RF Dose Instruction: USE DIRECTED Rx Instructions: Use to inject insulin once daily. omeprazole 40 mg capsule,delayed release(DR/EC) See Rx Instructions .ROUTE .COMPLEX Qty: 90 0RF Dose Instruction: take 1 capsule by mouth once daily Rx Instructions: take 1 capsule by mouth once daily hydrochlorothiazide 25 mg tablet See Rx Instructions .ROUTE .COMPLEX Qty: 45 2RF Dose Instruction: take 1/2 tablet by mouth once daily Rx Instructions: take 1/2 tablet by mouth once daily lisinopril 20 mg tablet See Rx Instructions .ROUTE .COMPLEX Qty: 90 0RF Dose Instruction: take 1 tablet by mouth once daily Rx Instructions: take 1 tablet by mouth once daily insulin glargine 100 unit/mL (3 mL) insulin pen 30 unit SUBCUT QPM Qty: 15 2RF albuterol sulfate [Ventolin HFA] 90 mcg/actuation HFA aerosol inhaler 2 puff Inhalation SEE INSTRUCTIONS PRN (Reason: shortness of breath or wheezing) Qty: 1 2RF test strips See Rx Instructions .ROUTE .COMPLEX Qty: 100 2RF Rx Instructions: Please use to test blood sugar 3 times a day: fasting blood sugar, blood sugar 2 hours after lunch and at bedtime. (DME) lancets Misc See Rx Instructions .ROUTE .MEDSUPPLY Qty: 50 11RF Rx Instructions: As directed triamcinolone acetonide 0.5 % cream 1 applictn TOP DAILY Qty: 15 0RF Rx Instructions: apply to hands at bedtime and cover with vaseline. metformin 1,000 mg tablet 1,000 mg PO BIDCC Qty: 180 3RF atorvastatin 80 mg tablet 80 mg PO BEDTIME Qty: 90 1RF Stand Alone Forms: Patient Portal/API
[2022-11-03] MEDS: HYDROCODONE/ACET 5/325 TABLET 1 TAB PO (20:57)
== END 2022-11-03 21:01 | disposition home or self-care (01) ==
PROVIDERS: Emergency Provider Emergency Medicine
DX: S00.83XA Contusion of other part of head, initial encounter (principal); S43.401A Unspecified sprain of right shoulder joint, initial encounter; R07.81 Pleurodynia; Z79.899 Other long term (current) drug therapy; W01.0XXA Fall on same level from slipping, tripping and stumbling without subsequent striking against object, initial encounter
CPT/HCPCS: 70450; 71045; 72125; 73030; 99284

== ENCOUNTER 2023-02-14 16:28 | Emergency (ER) | payer OTHER, SELFPAY ==
[2019-12-21 01:46] VITALS: BMI 30.7
[2023-02-14] VITALS (11 sets, daily range): BP systolic 99–138; BP diastolic 57–70; PULSE 69–76; RESP 17–47; TEMP 36.6–36.7; O2SAT 96–99; BMI 23.5
--- NOTE | 2023-02-14 16:52 | DI.RAD.S_ITS ---
PROCEDURE: XR CHEST 1V INDICATIONS: chest pain TECHNIQUE: One view of the chest was acquired. COMPARISON: [facility], CT, CT CHEST WITH CONTRAST, 11/14/2022, 10:56. [facility], CT, CT CHEST WITH CONTRAST, 01/28/2023, 12:16. [facility], CR, XR CHEST 2 VIEWS, 12/24/2022, 12:54. [facility], CR, XR CHEST 1V, 11/03/2022, 19:26. FINDINGS: Surgical changes and devices: Stable appearance of 3 lead cardiac device. Overlying EKG wires. Lungs and pleura: No pneumothorax. Decreased size of small right-sided pleural effusion. No pneumothorax. Subtle right basilar opacity. Mediastinum: Mediastinal contours appear normal. Heart size is normal. Bones and chest wall: No suspicious bony lesions. Soft tissue calcification consistent with splenic calcification is unchanged. IMPRESSION: Interval decreased size of small right-sided pleural effusion. Adjacent opacity may represent atelectasis versus consolidation. Dictated by: Musa Denise D.O. on 02/14/2023 at 16:41 Approved by: Musa Denise D.O. on 02/14/2023 at 16:48
[2023-02-14 17:02] LABS: Add Manual Diff / Slide Review NO; Basophils Absolute Auto 0 /uL (0-100); Basophils Percent Auto 0.6 % (0-2); Eosinophils Absolute Auto 100 /uL (0-450); Eosinophils Percent Auto 2.6 % (2-4); Hematocrit 36.9 % (36-46); Hemoglobin 12.6 g/dL (12.0-16.0); Lymphocytes Absolute Auto 1000 /uL (1100-4500); Lymphocytes Percent Auto 26.4 % (25-40); Mean Corpuscular HGB Conc 34.3 % (30-36); Mean Corpuscular Hemoglobin 31.2 PG (26-34); Monocytes Absolute Auto 300 /uL (0-900); Monocytes Percent Auto 8.4 % (3-14); Neutrophils Absolute Auto 2300 /uL (1500-7000); Platelet Count 123 X10^3/uL (150-400); Red Blood Cell Count 4.05 X10^6/uL (4.0-5.2); Red Cell Distribution Width 15.2 % (11.6-14.8); White Blood Cell Count 3.8 X10^3/uL (4.5-11.0)
[2023-02-14 17:09] LABS: INR 1.4 (0.9-1.3); Prothrombin Time 16.5 SECONDS (10.1-12.7)
[2023-02-14 17:11] LABS: PTT Partial Thromboplastin Tim 36 SECONDS (26-36)
[2023-02-14 17:14] LABS: Alanine Aminotransferase 33 IU/L (<35); Albumin 4.2 g/dL (3.5-5.0); Alkaline Phosphatase 150 U/L (38-126); Aspartate Aminotransferase 35 IU/L (14-36); BUN Creatinine Ratio 23.5 (6-22); Bilirubin Total 1.2 mg/dL (0.2-1.3); Blood Urea Nitrogen 20 mg/dL (7-17); Carbon Dioxide 27 mmol/L (22-32); Chloride 103 mmol/L (98-107); Creatine Kinase 67 U/L (30-135); Estimated Glomerular Filt Rate > 60 mL/min (>60); Globulin 4.2 g/dL (1.7-4.1); Glucose 152 mg/dL (70-100); HEMOLYSIS < 15 (0-50); Lipase 386 U/L (23-300); Magnesium 1.8 mg/dL (1.6-2.3); Potassium 3.4 mmol/L (3.4-5.1); Sodium 139 mmol/L (137-145); Total Protein 8.4 g/dL (6.3-8.2)
[2023-02-14 17:25] LABS: Troponin I < 0.012 ng/mL (0.01-0.034)
--- NOTE | 2023-02-14 17:49 | ED.CHESTPAIN ---
HPI - Chest Pain General Chief Complaint: Chest Pain Stated Complaint: burning sensation in chest Time Seen by Provider: 02/14/23 17:45 Source: patient Mode of arrival: Ambulatory Limitations: no limitations History of Present Illness HPI narrative: 52F smoker with history of CAD and STEMI with pacer and a known lower extremity DVT placed on Xarelto about 1 month ago presents with family in the chief complaint of retrosternal burning at about 330 or 4:00 a.m. this afternoon. She states that she had been in her normal state of health prior to then and felt this sensation that had no obvious provocation, palliation or radiation. She denies any associated symptoms such as dizziness, weakness or lightheadedness. She denies nausea, vomiting or diarrhea. She denies any change in her medications. She has had no recent trauma, injury. She does specifically state this feels significantly different than her STEMI 1 year ago 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 #1 ea test strips See Rx Instructions .Route 12/16/19 .COMPLEX #100 ea Mullins 5/16 Inch #1 ea 12/21/19 lancets #50 ea 12/28/19 triamcinolone acetonide 0.5 % 1 applictn topical DAILY #15 grams 05/18/20 topical cream insulin syringe-needle U-100 1 mL See Rx Instructions .Route 07/14/20 31 gauge x 5/16 (BD Insulin .COMPLEX #100 ea Syringe Ultra-Fine) omeprazole 40 mg capsule,delayed See Rx Instructions .Route 07/28/20 release .COMPLEX #90 caps atorvastatin 80 mg tablet 80 mg PO BEDTIME #90 tabs 12/17/20 metformin 1,000 mg tablet 1,000 mg PO BIDCC #180 tabs 12/17/20 hydrochlorothiazide 25 mg tablet See Rx Instructions .Route 05/06/21 .COMPLEX #45 tabs cyclobenzaprine 5 mg tablet 5 mg PO TID PRN muscle spasm #14 08/16/21 tabs lisinopril 20 mg tablet See Rx Instructions .Route 09/20/21 .COMPLEX #90 tabs insulin glargine 100 unit/mL (3 30 unit (0.3 mL) SUBCUT QPM #15 mL 01/29/22 mL) subcutaneous pen Allergies Allergy/AdvReac Type Severity Reaction Status Date / Time cephalexin [From KEFLEX] Allergy Unknown ITCHY Verified 02/14/23 16:32 naproxen Allergy Itchy hands Verified 02/14/23 16:32 azithromycin [AZITHROMYCIN] AdvReac Severe vomiting Verified 02/14/23 16:32 loratadine AdvReac Mild nausea Verified 02/14/23 16:32 Review of Systems Review of Systems Narrative: GENERAL: Denies chills, fatigue, malaise, fever, sweats. HEENT: Denies sinus pain, ear pain, sore throat, difficulty swallowing, dizziness. RESPIRATORY: Denies dyspnea, cough, wheezing, hemoptysis, sputum. CARDIOVASCULAR: See HPI GASTROINTESTINAL: Denies nausea, vomiting, abdominal pain, diarrhea, constipation, melena. : Denies dysuria, frequency, incontinence, hematuria, urinary retention. MUSCULOSKELETAL: denies weakness, joint pain, or bony pain SKIN: Denies rash, skin lesions, or other NEUROLOGIC: Denies weakness, headache, numbness, change in speech, confusion, seizures, incoordination. PSYCHIATRIC: No concerning psychosocial issues. 12 point review of systems is negative except for those stated above Patient History Medical History Allergic rhinitis Asthma Carpal tunnel syndrome of left wrist Continuous tobacco abuse COPD (chronic obstructive pulmonary disease) Dental infection Diabetes mellitus (08/20/11) Diabetes mellitus Edentulous GERD (gastroesophageal reflux disease) Gingivitis Hyperlipidemia Hypertension (08/20/11) Obesity (06/21/14) Pneumonia Pyelonephritis Sepsis Submandibular lymphadenopathy Tobacco use disorder (06/21/14) Urinary tract infection Surgical History Status post hysterectomy (~1996) Family History Father Mesothelioma Mother Dementia Epilepsy Sister Lung disease Other Family history non-contributory Social History household members: spouse Smoking Status: Current every day smoker alcohol intake: current Smoking Status: Current every day smoker alcohol intake frequency: 0-2 drinks per day Substance Use Type: does not use Exam Narrative Exam Narrative: GENERAL: 52 year old patient appears stated age. Well-developed patient, in mild distress. HEAD: Atraumatic. Normocephalic. EYES: Pupils equal round and reactive. Extraocular motions intact. No scleral icterus. No injection or drainage. ENT: Nose without bleeding, purulent drainage. Throat without erythema, tonsillar hypertrophy or exudate. Airway patent. NECK: Trachea midline. Non tender CARDIOVASCULAR: Regular rate and rhythm without murmurs, gallops, or rubs. RESPIRATORY: Clear to auscultation. Breath sounds equal bilaterally. No wheezes, rales, or rhonchi. GASTROINTESTINAL: Abdomen soft, non-tender, nondistended. EXTREMITIES: No edema or joint tenderness. BACK: Nontender without deformity or crepitance. No flank tenderness. NEURO: AOx3. SKIN: No rash or erythema of visible areas Initial Vital Signs Initial Vital Signs: Vital Signs Temperature 98.0 F 02/14/23 16:32 Pulse Rate 76 02/14/23 16:32 Respiratory Rate 18 02/14/23 16:32 Blood Pressure 111/60 02/14/23 16:32 Pulse Oximetry 98 02/14/23 16:32 Oxygen Delivery Method Room Air 02/14/23 16:32 Scores HEART Score Heart Score history: Slightly Suspicious Heart Score EKG: Normal Heart Score Age: 45-64 years old Heart Score risk factors: > 3 risk factors or hx of atherosclerotic disease Heart Score troponin: < or = to normal limit Heart Score Total: 3 Course Orders Ordered: ED Orders 02/14/23 16:41 EKG-12 Lead Routine 02/14/23 16:45 Complete Blood Count AUTO DIFF Stat Comprehensive Metabolic Panel Stat D Dimer Stat Lipase Stat Magnesium Stat PTT Partial Thromboplastin Sukhdev Stat Prothrombin Time INR Stat Troponin & CK Cardiac Panel Stat 02/14/23 16:52 XR chest 1V Stat 02/14/23 17:50 EKG-12 Lead Stat 02/14/23 19:13 CT angio chest PE protocol Stat 02/14/23 19:55 Troponin & CK Cardiac Panel Stat Vital Signs Vital signs: Vital Signs - 8 hr 02/14/23 16:32 02/14/23 17:21 02/14/23 18:20 Temperature 98.0 F Pulse Rate 76 74 73 Respiratory Rate 18 21 27 H Blood Pressure 111/60 99/60 Pulse Oximetry 98 97 96 Oxygen Delivery Method Room Air Room Air Room Air 02/14/23 18:21 02/14/23 18:21 02/14/23 18:30 Temperature Pulse Rate 72 Respiratory Rate 28 H Blood Pressure 116/57 L 111/59 L Pulse Oximetry 97 Oxygen Delivery Method 02/14/23 18:30 02/14/23 19:00 02/14/23 19:00 Temperature Pulse Rate 69 72 Respiratory Rate 22 24 Blood Pressure 114/66 Pulse Oximetry 97 97 Oxygen Delivery Method 02/14/23 19:35 02/14/23 19:41 02/14/23 19:41 Temperature Pulse Rate 76 74 Respiratory Rate 47 H 31 H Blood Pressure 124/68 Pulse Oximetry 98 99 Oxygen Delivery Method 02/14/23 20:00 02/14/23 20:00 Temperature Pulse Rate 71 Respiratory Rate 17 Blood Pressure 126/65 Pulse Oximetry 98 Oxygen Delivery Method Room Air MDM - Chest Pain Lab Data 02/14/23 16:45 02/14/23 16:45 Labs: Lab Results 02/14/23 02/14/23 02/14/23 Range/Units 16:45 16:45 16:45 WBC 3.8 L (4.5-11.0) X10^3/uL RBC 4.05 (4.0-5.2) X10^6/uL Hgb 12.6 (12.0-16.0) g/dL Hct 36.9 (36-46) % MCV 91.0 (80-100) fL MCH 31.2 (26-34) PG MCHC 34.3 (30-36) % RDW 15.2 H (11.6-14.8) % Plt Count 123 L (150-400) X10^3/uL Neut % (Auto) 62.0 (50-75) % Lymph % (Auto) 26.4 (25-40) % [place] % (Auto) 8.4 (3-14) % Eos % (Auto) 2.6 (2-4) % Baso % (Auto) 0.6 (0-2) % Neut # (Auto) 2300 (3816-5189) /uL Lymph # (Auto) 1000 L (1801-4599) /uL [place] # (Auto) 300 (0-900) /uL Eos # (Auto) 100 (0-450) /uL Baso # (Auto) 0 (0-100) /uL PT 16.5 H (10.1-12.7) SECONDS INR 1.4 H (0.9-1.3) APTT 36 (26-36) SECONDS D-Dimer (<500) ng/ml Sodium 139 (137-145) mmol/L Potassium 3.4 (3.4-5.1) mmol/L Chloride 103 (98-107) mmol/L Carbon Dioxide 27 (22-32) mmol/L BUN 20 H (7-17) mg/dL Creatinine 0.85 (0.52-1.04) mg/dL Estimated GFR > 60 (>60) mL/min BUN/Creatinine Ratio 23.5 H (6-22) Glucose 152 H (70-100) mg/dL Calcium 9.0 (8.4-10.2) mg/dL Magnesium 1.8 (1.6-2.3) mg/dL Total Bilirubin 1.2 (0.2-1.3) mg/dL AST 35 (14-36) IU/L ALT 33 (<35) IU/L Alkaline Phosphatase 150 H (38-126) U/L Total Creatine Kinase 67 (30-135) U/L CK-MB (CK-2) TNP CK-MB (CK-2) Rel Index TNP Troponin I < 0.012 (0.01-0.034) ng/mL Total Protein 8.4 H (6.3-8.2) g/dL Albumin 4.2 (3.5-5.0) g/dL Globulin 4.2 H (1.7-4.1) g/dL Albumin/Globulin Ratio 1.0 (1.0-2.8) Lipase 386 H (23-300) U/L 02/14/23 02/14/23 Range/Units 16:45 19:55 WBC (4.5-11.0) X10^3/uL RBC (4.0-5.2) X10^6/uL Hgb (12.0-16.0) g/dL Hct (36-46) % MCV (80-100) fL MCH (26-34) PG MCHC (30-36) % RDW (11.6-14.8) % Plt Count (150-400) X10^3/uL Neut % (Auto) (50-75) % Lymph % (Auto) (25-40) % [place] % (Auto) (3-14) % Eos % (Auto) (2-4) % Baso % (Auto) (0-2) % Neut # (Auto) (3955-6888) /uL Lymph # (Auto) (9228-2215) /uL [place] # (Auto) (0-900) /uL Eos # (Auto) (0-450) /uL Baso # (Auto) (0-100) /uL PT (10.1-12.7) SECONDS INR (0.9-1.3) APTT (26-36) SECONDS D-Dimer 2305 H (<500) ng/ml Sodium (137-145) mmol/L Potassium (3.4-5.1) mmol/L Chloride (98-107) mmol/L Carbon Dioxide (22-32) mmol/L BUN (7-17) mg/dL Creatinine (0.52-1.04) mg/dL Estimated GFR (>60) mL/min BUN/Creatinine Ratio (6-22) Glucose (70-100) mg/dL Calcium (8.4-10.2) mg/dL Magnesium (1.6-2.3) mg/dL Total Bilirubin (0.2-1.3) mg/dL AST (14-36) IU/L ALT (<35) IU/L Alkaline Phosphatase (38-126) U/L Total Creatine Kinase 61 (30-135) U/L CK-MB (CK-2) TNP CK-MB (CK-2) Rel Index TNP Troponin I < 0.012 (0.01-0.034) ng/mL Total Protein (6.3-8.2) g/dL Albumin (3.5-5.0) g/dL Globulin (1.7-4.1) g/dL Albumin/Globulin Ratio (1.0-2.8) Lipase (23-300) U/L MDM Narrative Medical decision making narrative: CC: Burning anterior chest discomfort Complicating co-morbidities: Prior myocardial infarction, known DVT but anticoagulated Data collected from: Patient Medical records reviewed: Prior notes reviewed in our EMR Differential considered, but not limited to: Cardiac ischemia versus pulmonary embolism versus GI related versus other Exam documented above, pertinent findings include: Lab Test results independently reviewed as above. Pertinent findings: Labs largely reassuring, troponin x2 is negative. D-dimer is above age corrected cutoff, however there is known DVT Independently reviewed EKG as above Imaging studies independently reviewed: CT angiogram without significant findings Scores Used: HEART Discussion: Patient with brief episode of burning anterior chest pressure, she denies any exertional components, EKG is nonischemic, troponin x2 negative, heart score 3. Pulmonary embolism considered but thought unlikely given negative CT angiogram and the fact that she is anticoagulated. She is been asymptomatic for the duration of the visit. She is appropriate for discharge, return precautions discussed Disposition: see below, along with detailed discharge instructions that have been reviewed with patient as well as indications for ED re-evaluation and additional outpatient follow up Discharge Plan Departure Patient Disposition: Home Clinical Impression: Atypical chest pain Instructions: DI for Atypical Chest Pain Activity Restrictions/Additional Instructions: *You have been diagnosed with [atypical chest pain. As we discussed there is no evidence of heart attack, blood clot, pneumonia or other diagnosis requiring a specific or immediate intervention] *What to do: *Please continue to take your regular medications as directed. [ ] New medication prescriptions sent to your pharmacy: [ ] [ ] New medication written as a paper prescription [ ] No new medications given *Please follow up with your primary care provider in 2-3 days, call for an appointment. Let them know you were seen in the Emergency Department and that we ask that you be seen in follow up. We will electronically transmit a record of today's note if your PCP is in our system *If you do not have a primary care provider please contact the [facility] Resource line at [phone]. They will ask some questions about your medical history and help get you set up with a doctor in the community. *Return to Emergency Department if you should have any new, worsening or concerning symptoms, such as [fever greater than 101 F, shaking chills, worsening pain, persistent vomiting or other bothersome symptoms] Prescriptions: No Action cyclobenzaprine 5 mg tablet 5 mg PO TID PRN (Reason: muscle spasm) Qty: 14 0RF clotrimazole 1 % cream See Rx Instructions Topical BID Qty: 30 1RF Dose Instruction: Apply 1gm topical twice a day Topical BID; Rx Instructions: Apply 1gm topical twice a day to affected area. lancet See Rx Instructions .ROUTE .COMPLEX Qty: 100 2RF Rx Instructions: use to test blood sugar 3 times a day: use for testing fasting blood sugar, blood sugar 2 hours after lunch and at bedtime ; glucometer kit See Rx Instructions .ROUTE .COMPLEX Qty: 1 0RF Rx Instructions: please use to test blood sugar 3 times daily ; glucometer home kit See Rx Instructions .ROUTE .COMPLEX Qty: 1 0RF Rx Instructions: please use to test blood sugar 3 times daily ; (DME) Mullins 5/16 Inch 0 .Route .MEDSUPPLY Qty: 1 5RF Rx Instructions: As directed insulin syringe-needle U-100 [BD Insulin Syringe Ultra-Fine] 1 mL 31 gauge x 5/16 syringe See Rx Instructions .ROUTE .COMPLEX Qty: 100 3RF Dose Instruction: USE DIRECTED Rx Instructions: Use to inject insulin once daily. omeprazole 40 mg capsule,delayed release(DR/EC) See Rx Instructions .ROUTE .COMPLEX Qty: 90 0RF Dose Instruction: take 1 capsule by mouth once daily Rx Instructions: take 1 capsule by mouth once daily hydrochlorothiazide 25 mg tablet See Rx Instructions .ROUTE .COMPLEX Qty: 45 2RF Dose Instruction: take 1/2 tablet by mouth once daily Rx Instructions: take 1/2 tablet by mouth once daily lisinopril 20 mg tablet See Rx Instructions .ROUTE .COMPLEX Qty: 90 0RF Dose Instruction: take 1 tablet by mouth once daily Rx Instructions: take 1 tablet by mouth once daily insulin glargine 100 unit/mL (3 mL) insulin pen 30 unit SUBCUT QPM Qty: 15 2RF albuterol sulfate [Ventolin HFA] 90 mcg/actuation HFA aerosol inhaler 2 puff Inhalation SEE INSTRUCTIONS PRN (Reason: shortness of breath or wheezing) Qty: 1 2RF test strips See Rx Instructions .ROUTE .COMPLEX Qty: 100 2RF Rx Instructions: Please use to test blood sugar 3 times a day: fasting blood sugar, blood sugar 2 hours after lunch and at bedtime. (DME) lancets Misc See Rx Instructions .ROUTE .MEDSUPPLY Qty: 50 11RF Rx Instructions: As directed triamcinolone acetonide 0.5 % cream 1 applictn TOP DAILY Qty: 15 0RF Rx Instructions: apply to hands at bedtime and cover with vaseline. metformin 1,000 mg tablet 1,000 mg PO BIDCC Qty: 180 3RF atorvastatin 80 mg tablet 80 mg PO BEDTIME Qty: 90 1RF Stand Alone Forms: Patient Portal/API
[2023-02-14 18:04] LABS: D Dimer 2305 ng/ml (<500)
--- NOTE | 2023-02-14 19:13 | DI.CT.S_ITS ---
PROCEDURE: CT ANGIO CHEST PE PROTOCOL INDICATIONS: chest pain, known DVT TECHNIQUE: After the administration of intravenous contrast, 2 mm thick sections acquired from the pulmonary apices to the posterior costophrenic angles. 3-dimensional maximum intensity projection (MIP) coronal and sagittal reformats were then acquired through the thorax. For radiation dose reduction, the following was used: automated exposure control, adjustment of mA and/or kV according to patient size. COMPARISON: [facility], CT, CT CHEST WITH CONTRAST, 01/28/2023, 12:16. FINDINGS: Image quality: Excellent. Pulmonary arteries: Pulmonary arteries are mildly prominent in size, and demonstrate no intraluminal filling defects to suggest central pulmonary embolism. Lungs and pleura: Small right pleural effusion is seen, decreased since previous study. No left-sided pleural effusion. Previously described 1.1 cm ground-glass density area in right lower lobe is no longer seen. No suspicious pulmonary nodule is seen on the current study. Scattered atelectasis in posterior and lateral periphery of bilateral lower lung pugh are seen. No pneumothorax. Central and peripheral airway is patent. Central and peripheral airways are patent. Mediastinum: Heart size is enlarged, without pericardial effusion. Moderate atherosclerotic calcifications are seen in coronary vessels and thoracic aorta. Mild mediastinal and hilar lymphadenopathy are seen measures up to 1.3 cm in short axis diameter in right paratracheal space. Thoracic aorta is normal in caliber and enhancement. Esophagus is normal in caliber, without hiatal hernia. Bones and chest wall: Left chest wall pacemaker is seen. No suspicious bony lesions. Ribs and thoracic spine appear intact throughout. Thyroid gland is within normal limits. No axillary or supraclavicular adenopathy. Abdomen: Visualized upper abdominal solid organs appear normal in the early arterial phase of enhancement. IMPRESSION: 1. No evidence of pulmonary emboli. Mild prominence of main pulmonary artery which can be seen associated with pulmonary vascular hypertension. No thoracic aortic aneurysm. 2. Cardiomegaly, no pericardial effusion. Left chest wall pacemaker in place. Prominent mediastinal and hilar lymph nodes likely represent reactive inflammatory nodes. Moderate atherosclerotic calcifications seen in coronary vessels and thoracic aorta. 3. Small right pleural effusion decreased since previous study. Interval resolution of previously noted 1.1 cm ground-glass opacity in right lower lobe. Bibasilar atelectasis. No suspicious pulmonary nodule. No pneumothorax. Airway is patent. Dictated by: Negro Pendleton M.D. on 02/14/2023 at 19:43 Approved by: Negro Pendleton M.D. on 02/14/2023 at 19:47
[2023-02-14 20:18] LABS: Creatine Kinase 61 U/L (30-135)
[2023-02-14 20:31] LABS: Troponin I < 0.012 ng/mL (0.01-0.034)
== END 2023-02-14 20:56 | disposition home or self-care (01) ==
PROVIDERS: Emergency Medicine; Emergency Provider Emergency Medicine
DX: R07.89 Other chest pain (principal)
CPT/HCPCS: 36415; 71045; 71275; 80053; 82550; 83690; 83735; 84484; 85025; 85379; 85610; 85730; 93005; 93010; 99284; Q9967

== ENCOUNTER 2023-03-09 14:46 | Emergency (ER) | payer OTHER, SELFPAY ==
[2019-12-21 01:46] VITALS: BMI 30.7
[2023-03-09 14:49] VITALS: BP 113/57; PULSE 68; RESP 16; TEMP 36.9; O2SAT 97; BMI 23.5
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
--- NOTE | 2023-03-09 15:51 | ED_ITS ---
HPI - Fall General Chief Complaint: Fall Stated Complaint: fell/hit head Time Seen by Provider: 03/09/23 15:06 Source: patient Mode of arrival: Ambulatory History of Present Illness HPI Narrative: Patient is a 53-year-old female. She states that earlier today she tripped over her grandson and fell forward and hit her head. There was no loss of consciousness. She also has right shoulder and right upper arm and right hand/wrist discomfort. She is on anticoagulation. He is no neck pain. No lower extremity discomfort. 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 #1 ea test strips See Rx Instructions .Route 12/16/19 .COMPLEX #100 ea [place] 5/16 Inch #1 ea 12/21/19 lancets #50 ea 12/28/19 triamcinolone acetonide 0.5 % 1 applictn topical DAILY #15 grams 05/18/20 topical cream insulin syringe-needle U-100 1 mL See Rx Instructions .Route 07/14/20 31 gauge x 5/16 (BD Insulin .COMPLEX #100 ea Syringe Ultra-Fine) omeprazole 40 mg capsule,delayed See Rx Instructions .Route 07/28/20 release .COMPLEX #90 caps atorvastatin 80 mg tablet 80 mg PO BEDTIME #90 tabs 12/17/20 metformin 1,000 mg tablet 1,000 mg PO BIDCC #180 tabs 12/17/20 hydrochlorothiazide 25 mg tablet See Rx Instructions .Route 05/06/21 .COMPLEX #45 tabs cyclobenzaprine 5 mg tablet 5 mg PO TID PRN muscle spasm #14 08/16/21 tabs lisinopril 20 mg tablet See Rx Instructions .Route 09/20/21 .COMPLEX #90 tabs insulin glargine 100 unit/mL (3 30 unit (0.3 mL) SUBCUT QPM #15 mL 01/29/22 mL) subcutaneous pen Allergies Allergy/AdvReac Type Severity Reaction Status Date / Time cephalexin [From KEFLEX] Allergy Unknown ITCHY Verified 02/14/23 16:32 naproxen Allergy Itchy hands Verified 02/14/23 16:32 azithromycin [AZITHROMYCIN] AdvReac Severe vomiting Verified 02/14/23 16:32 loratadine AdvReac Mild nausea Verified 02/14/23 16:32 Review of Systems Constitutional Constitutional: Reports system reviewed and no additional complaints, except as documented Eyes Eyes: Reports system reviewed and no additional complaints, except as documented ENT Ears, Nose, Mouth, and Throat: Reports system reviewed and no additional complaints, except as documented Musculoskeletal Musculoskeletal: Reports system reviewed and no additional complaints, except as documented Integumentary/Breasts Skin/Breast: Reports system reviewed and no additional complaints, except as documented Neurologic Neurologic: Reports system reviewed and no additional complaints, except as documented Hematologic/Lymphatic On Anticoagulants: Yes Patient History Medical History Allergic rhinitis Asthma Carpal tunnel syndrome of left wrist Continuous tobacco abuse COPD (chronic obstructive pulmonary disease) Dental infection Diabetes mellitus (08/20/11) Diabetes mellitus Edentulous GERD (gastroesophageal reflux disease) Gingivitis Hyperlipidemia Hypertension (08/20/11) Obesity (06/21/14) Pneumonia Pyelonephritis Sepsis Submandibular lymphadenopathy Tobacco use disorder (06/21/14) Urinary tract infection Surgical History Status post hysterectomy (~1996) Family History Father Mesothelioma Mother Dementia Epilepsy Sister Lung disease Other Family history non-contributory Social History household members: spouse Smoking Status: Current every day smoker alcohol intake: current Smoking Status: Current every day smoker alcohol intake frequency: 0-2 drinks per day Substance Use Type: does not use Exam Initial Vital Signs Initial Vital Signs: Vital Signs Temperature 98.5 F 03/09/23 14:49 Pulse Rate 68 03/09/23 14:49 Respiratory Rate 16 03/09/23 14:49 Blood Pressure 113/57 L 03/09/23 14:49 Pulse Oximetry 97 03/09/23 14:49 Oxygen Delivery Method Room Air 03/09/23 14:49 Const General: disheveled HENMT Head: abrasion, contusion and hematoma Eyes EOM: EOM intact bilaterally Resp Effort & Inspection: normal respiratory effort Cardio Rate: regular rate Skin Other: Contusion/abrasion over the right forehead and also under the right eye. Contusion over right anterior shoulder. Neuro General: patient alert and patient awake Extrem Other: Discomfort over right shoulder and right humerus and right wrist Course Orders Ordered: ED Orders 03/09/23 14:58 CT head/brain wo con Stat XR hand RT min 3V Stat XR humerus RT 2V Stat 03/09/23 15:00 XR shoulder RT min 2V Stat Vital Signs Vital signs: Vital Signs - 8 hr 03/09/23 14:49 03/09/23 16:10 Temperature 98.5 F Pulse Rate 68 63 Respiratory Rate 16 18 Blood Pressure 113/57 L 113/57 L Pulse Oximetry 97 99 Oxygen Delivery Method Room Air Room Air MDM - Fall Imaging Data CT scan - head: Radiologist's Impression: PROCEDURE:? CT HEAD/BRAIN WO CON ? INDICATIONS:? trauma - FELL HIT HEAD ? TECHNIQUE:? Noncontrast 4.5 mm thick angled axial sections acquired from the foramen magnum to the vertex, with coronal and sagittal reformats.? For radiation dose reduction, the following was used:? automated exposure control, adjustment of mA and/or kV according to patient size.? ? COMPARISON:? [facility], CT, CT HEAD/BRAIN WO CON, 11/03/2022, 19:28. ? FINDINGS:? Image quality:? Excellent.? ? CSF spaces:? Basal cisterns are patent.? No extra-axial fluid collections.? Ventricles are normal in size and shape.? ? Brain:? No midline shift.? No intracranial masses or hemorrhage.? Cabrera-white matter interface is normal.? ? Skull and face:? Calvarium and visualized facial bones are intact, without suspicious lesions.? ? Sinuses:? Visualized sinuses and mastoids are clear.? ? IMPRESSION:? No acute intracranial process Extremity x-ray #1: Radiologist's Impression: PROCEDURE:? XR HUMERUS RT 2V ? INDICATIONS:? trauma ? TECHNIQUE:? 2 views of the humerus were acquired.? ? COMPARISON:? None. ? FINDINGS:? ? Bones:? No fractures or dislocations.? No suspicious bony lesions.? ? Soft tissues:? No suspicious soft tissue calcifications.? ? IMPRESSION:? No evidence acute bony abnormality. Extremity x-ray #2: Radiologist's Impression: PROCEDURE:? XR SHOULDER RT MIN 2V ? INDICATIONS:? trauma ? TECHNIQUE:? 3 views of the shoulder were acquired.? ? COMPARISON:? [facility], CR, XR SHOULDER RT MIN 2V, 11/03/2022, 19:43. ? FINDINGS:? ? Bones:? No fractures or dislocations.? No suspicious bony lesions.? Visualized ribs appear intact.? AC joint degenerative arthritis. ? Soft tissues:? No suspicious soft tissue calcifications.? ? IMPRESSION:? No evidence acute bony abnormality. ? If clinical suspicion and/or symptoms persist, further assessment with repeat plain films, or advanced imaging (e.g., CT, MRI, or bone scan) may be helpful for further assessment. Extremity x-ray #3: Radiologist's Impression: PROCEDURE:? XR HAND RT MIN 3V ? INDICATIONS:? trauma ? TECHNIQUE:? 3 views of the hand(s) acquired.? ? COMPARISON:? None. ? FINDINGS:? ? Bones:? No fractures or dislocations.? Carpal bones are normally aligned.? No suspicious bony lesions.? ? Soft tissues:? No suspicious soft tissue calcifications.? ? ? IMPRESSION:? No evidence acute bony abnormality. MDM Narrative Medical decision making narrative: X-ray shows no acute fractures or dislocations. The abrasions on the forehead and under the right eye due no specific intervention here in the ER. This was a mechanical fall. She is ambulatory. No neck pain. Discharge patient home with return precautions and follow-up instructions. She expressed understanding and agreement. Discharge Plan Departure Patient Disposition: Home Clinical Impression: Contusion of forehead, Contusion of face, Arm pain, right Instructions: Bruises (Alternative Therapy) Activity Restrictions/Additional Instructions: Do recommend that you put ice over the right side of your face and also on your right shoulder and right arm. Continue to take all of your medications as directed. Contact your primary doctor for follow-up. Return to the emergency department for new or worsening symptoms. Prescriptions: No Action cyclobenzaprine 5 mg tablet 5 mg PO TID PRN (Reason: muscle spasm) Qty: 14 0RF clotrimazole 1 % cream See Rx Instructions Topical BID Qty: 30 1RF Dose Instruction: Apply 1gm topical twice a day Topical BID; Rx Instructions: Apply 1gm topical twice a day to affected area. lancet See Rx Instructions .ROUTE .COMPLEX Qty: 100 2RF Rx Instructions: use to test blood sugar 3 times a day: use for testing fasting blood sugar, blood sugar 2 hours after lunch and at bedtime ; glucometer kit See Rx Instructions .ROUTE .COMPLEX Qty: 1 0RF Rx Instructions: please use to test blood sugar 3 times daily ; glucometer home kit See Rx Instructions .ROUTE .COMPLEX Qty: 1 0RF Rx Instructions: please use to test blood sugar 3 times daily ; (DME) [place] 5/16 Inch 0 .Route .MEDSUPPLY Qty: 1 5RF Rx Instructions: As directed insulin syringe-needle U-100 [BD Insulin Syringe Ultra-Fine] 1 mL 31 gauge x 5/16 syringe See Rx Instructions .ROUTE .COMPLEX Qty: 100 3RF Dose Instruction: USE DIRECTED Rx Instructions: Use to inject insulin once daily. omeprazole 40 mg capsule,delayed release(DR/EC) See Rx Instructions .ROUTE .COMPLEX Qty: 90 0RF Dose Instruction: take 1 capsule by mouth once daily Rx Instructions: take 1 capsule by mouth once daily hydrochlorothiazide 25 mg tablet See Rx Instructions .ROUTE .COMPLEX Qty: 45 2RF Dose Instruction: take 1/2 tablet by mouth once daily Rx Instructions: take 1/2 tablet by mouth once daily lisinopril 20 mg tablet See Rx Instructions .ROUTE .COMPLEX Qty: 90 0RF Dose Instruction: take 1 tablet by mouth once daily Rx Instructions: take 1 tablet by mouth once daily insulin glargine 100 unit/mL (3 mL) insulin pen 30 unit SUBCUT QPM Qty: 15 2RF albuterol sulfate [Ventolin HFA] 90 mcg/actuation HFA aerosol inhaler 2 puff Inhalation SEE INSTRUCTIONS PRN (Reason: shortness of breath or wheezing) Qty: 1 2RF test strips See Rx Instructions .ROUTE .COMPLEX Qty: 100 2RF Rx Instructions: Please use to test blood sugar 3 times a day: fasting blood sugar, blood sugar 2 hours after lunch and at bedtime. (DME) lancets Misc See Rx Instructions .ROUTE .MEDSUPPLY Qty: 50 11RF Rx Instructions: As directed triamcinolone acetonide 0.5 % cream 1 applictn TOP DAILY Qty: 15 0RF Rx Instructions: apply to hands at bedtime and cover with vaseline. metformin 1,000 mg tablet 1,000 mg PO BIDCC Qty: 180 3RF atorvastatin 80 mg tablet 80 mg PO BEDTIME Qty: 90 1RF Stand Alone Forms: Patient Portal/API
[2023-03-09 16:09] VITALS: PULSE 64; O2SAT 99
[2023-03-09 16:10] VITALS: BP 113/57; PULSE 63; RESP 18; O2SAT 99
[2023-03-09 16:30] VITALS: BP 113/57; PULSE 60; RESP 18; O2SAT 99
== END 2023-03-09 16:58 | disposition home or self-care (01) ==
PROVIDERS: Emergency Provider Emergency Medicine
DX: S00.83XA Contusion of other part of head, initial encounter (principal); S09.90XA Unspecified injury of head, initial encounter; M79.601 Pain in right arm; M25.511 Pain in right shoulder; M79.641 Pain in right hand; W01.0XXA Fall on same level from slipping, tripping and stumbling without subsequent striking against object, initial encounter
CPT/HCPCS: 70450; 73030; 73060; 73130; 99283; 99284